=== PATIENT | female | born 1980 | race Caucasian/White ===

== ENCOUNTER → 2018-02-26 07:21 | Outpatient (CLI) | payer BC, SELFPAY ==
[2018-02-26 08:25] LABS: Hematocrit 40.5 % (37-47); Hemoglobin 13.3 g/dl (12.0-15.0); Mean Corp Hgb Conc 32.8 g/gl (32-36); Mean Corpuscular Volume 91.4 fL (81-99); Mean Platelet Vol. 11.1 fl (6.2-12.0); Platelet Count 262 K/mm3 (150-450); RBC Distribution Width CV 12.7 % (11.6-14.6); RBC Distribution Width SD 41.9 fl (35.1-43.9); Red Blood Count 4.43 M/mm3 (4.2-5.4); White Blood Count 3.8 K/mm3 (4.4-11.0)
[2018-02-26 08:30] LABS: Scan Indicated on CBC? Y/N NO
[2018-02-26 08:51] LABS: Erythrocyte Sedimentation Rate 4 mm/hr (0-20)
[2018-02-26 09:15] LABS: ALB/GLOB Ratio 1.2 RATIO (0.9-2.4); AST(SGOT) 12 U/L (15-37); Alanine Aminotransfer ALT/SGPT 24 U/L (13-56); Albumin, Serum 4.1 g/dL (3.2-5.0); Alkaline Phosphatase 62 U/L (45-117); BUN 11 mg/dL (7-18); BUN/Creat Ratio 16.1 RATIO (10-20); Calcium,Total 9.4 mg/dL (8.5-10.1); Creatinine, Serum 0.68 mg/dL (0.55-1.02); EST Glomerular Filtration Rate 102 mL/min (>60); Est Glom Filt Rate - Afr Amer 123 mL/min (>60); Globulin 3.5 g/dL (2.2-4.2); Glucose 83 mg/dL (74-106); Protein, Total 7.6 g/dL (6.4-8.2)
[2018-02-26 09:16] LABS: Anion Gap 8 (5-15); CRP < 2.90 mg/L (0.0-3.0); Chloride 105 mmol/L (98-107); Potassium 4.1 mmol/L (3.5-5.1); Sodium Level 142 mmol/L (136-145)
== END ==
PROVIDERS: Family Provider Family Medicine; PCP Family Medicine; Visit Provider Family Medicine
DX: E03.9 Hypothyroidism, unspecified (principal); R53.83 Other fatigue
CPT/HCPCS: 36415; 80053; 84443; 85027; 85652; 86140

== ENCOUNTER → 2018-03-09 16:57 | Outpatient (CLI) | payer BC, SELFPAY ==
[2018-03-09 17:36] LABS: Free T3 2.7 pg/mL (2.18-3.98); T4 Free Direct 0.57 ng/dL (0.76-1.46)
== END ==
PROVIDERS: Family Provider Family Medicine; PCP Family Medicine; Visit Provider Nurse Practitioner
DX: E03.9 Hypothyroidism, unspecified (principal)
CPT/HCPCS: 84439; 84481

== ENCOUNTER → 2018-05-03 16:11 | Outpatient (CLI) | payer BC, SELFPAY ==
[2018-05-03 17:44] LABS: Free T3 2.5 pg/mL (2.18-3.98)
== END ==
PROVIDERS: Family Provider Family Medicine; PCP Family Medicine; Visit Provider Nurse Practitioner
DX: E03.9 Hypothyroidism, unspecified (principal)
CPT/HCPCS: 36415; 84439; 84443; 84481

== ENCOUNTER → 2018-05-25 07:21 | Outpatient (CLI) | payer BC, SELFPAY ==
[2018-05-25 09:10] LABS: Immature Platelet Fraction 2.3 % (1.0-7.9); RET-HE 26.9 pg (30-35); Reticulocyte Count 0.41 % (0.5-1.5)
[2018-05-25 09:14] LABS: Erythrocyte Sedimentation Rate 4 mm/hr (0-20)
[2018-05-25 10:25] LABS: CRP < 2.90 mg/L (0.0-3.0); Calcium,Total 9.8 mg/dL (8.5-10.1); Follicle Stimulating Hormone 7.5 mIU/mL; Prolactin 10.6 ng/mL; Rheumatoid Factor < 10.0 IU/mL (<15); Uric Acid 2.8 mg/dL (2.6-6.0)
[2018-05-26 08:24] LABS: PTHIN 71.9 pg/mL (18.4-80.1)
[2018-05-26 08:33] LABS: Vitamin B12 802 pg/mL (211-911); Vitamin D,25 Hydroxy 18.2 ng/mL (29.95-100.01)
[2018-05-26 14:48] LABS: ANTINUCLEAR ANTIBODIES DIRECT Negative (Negative)
[2018-05-31 08:11] LABS: 24HR. Urine Creatinine 1.35 g/24 HR (0.70-1.90)
[2018-06-03 17:04] LABS: ASO Titer 52.5 IU/mL (0.0-200.0); Renin, Plasma 1.677 ng/mL/hr (0.167-5.380)
[2018-06-03 20:08] LABS: Cortisol, Urinary Free 11 ug/L (Undefined)
[2018-06-04 11:27] LABS: Cortisol, Free 24Ur 30 ug/24 hr (0-50)
== END ==
PROVIDERS: Visit Provider Nurse Practitioner Family
DX: M25.50 Pain in unspecified joint (principal); R53.81 Other malaise; R53.82 Chronic fatigue, unspecified
CPT/HCPCS: 36415; 82306; 82310; 82530; 82570; 82607; 82746; 83001; 83002; 83735; 83970; 84146; 84244; 84550; 85045; 85652; 86038; 86060; 86140; 86431

== ENCOUNTER → 2018-05-26 12:24 | Outpatient (CLI) | payer BC, SELFPAY ==
--- NOTE | 2018-05-26 12:26 | US_ITS ---
STUDY: THYROID ULTRASOUND REASON FOR EXAM: Female, 37 years old. Hypothyroidism. TECHNIQUE: Ultrasound evaluation of the thyroid was performed with real-time and static ragland-scale imaging. COMPARISON: None. FINDINGS: RIGHT LOBE: The right lobe of the thyroid gland measures 5.5 x 2.4 x 2.4 cm. There is a heterogeneous echotexture. There are no demonstrated solid, cystic or complex lesions. There is prominent vascularity on color Doppler. LEFT LOBE: The left lobe of the thyroid gland measures 5.2 x 2.7 x 2.4 cm. There is a heterogeneous echotexture. There are no demonstrated solid, cystic or complex lesions. There is mildly prominent vascularity on color Doppler. ISTHMUS: The isthmus measures 5 mm. The regional lymph nodes are normal. US/Thyroid IMPRESSION: Borderline to mildly enlarged, diffusely heterogeneous and predominantly vascular thyroid gland, consistent with goiter or mild thyroiditis. Electronically Signed: Ole Singletary MD at 19:37 EDT , Service support ,
== END ==
PROVIDERS: Family Provider Nurse Practitioner Family; PCP Nurse Practitioner Family; Visit Provider Nurse Practitioner Family
DX: E03.9 Hypothyroidism, unspecified (principal)
CPT/HCPCS: 76536

== ENCOUNTER → 2018-05-29 07:06 | Outpatient (CLI) | payer BC, SELFPAY | PROVIDERS: Family Provider Nurse Practitioner Family; PCP Nurse Practitioner Family; Visit Provider Nurse Practitioner Family | DX: M25.50 Pain in unspecified joint (principal); R53.81 Other malaise; R53.83 Other fatigue | CPT/HCPCS: 36415 ==

== ENCOUNTER → 2018-06-08 15:02 | Outpatient (CLI) | payer BC, SELFPAY ==
[2018-06-08 15:28] LABS: Absolute Lymphocyte Count 1.88 X10^3/ul (0.83-4.51); Absolute Neutrophil Count 3.9 X10^3/uL (2.0-7.7); Basophil# 0.03 X10^3/uL; Basophil% 0.5 % (0-1); Eosinophil# 0.16 X10^3/uL; Eosinophils% 2.5 % (0-5); Hematocrit 40.5 % (37-47); Lymphocyte # 1.88 X10^3/ul (4.0); Lymphocyte % 29.4 % (19-41); Mean Corp Hgb Conc 32.1 g/gl (32-36); Mean Corpuscular Volume 90.4 fL (81-99); Mean Platelet Vol. 10.6 fl (6.2-12.0); Monocyte# 0.43 X10^3/uL; Monocyte% 6.7 % (0-10); Neutrophil # 3.89 X10^3/uL (2.7-7.7); Neutrophil % 60.9 % (47-70); Platelet Count 246 K/mm3 (150-450); RBC Distribution Width SD 42.6 fl (35.1-43.9); Red Blood Count 4.48 M/mm3 (4.2-5.4); White Blood Count 6.4 K/mm3 (4.4-11.0)
[2018-06-08 15:37] LABS: POSITIVE COUNT NO; POSITIVE DIFFERENTIAL NO; POSITIVE MORPHOLOGY NO
== END ==
PROVIDERS: Family Provider Nurse Practitioner Family; PCP Nurse Practitioner Family; Visit Provider Nurse Practitioner Family
DX: D75.89 Other specified diseases of blood and blood-forming organs (principal)
CPT/HCPCS: 36415; 85025

== ENCOUNTER 2018-07-15 22:44 | Emergency (ER) | payer BC, SELFPAY ==
[2018-07-15 22:46] VITALS: BP 122/76; PULSE 88; RESP 16; TEMP 36.9; O2SAT 100; BMI 28.4
[2018-07-15 23:02] VITALS: BP 123/84; PULSE 89; RESP 15; O2SAT 100
--- NOTE | 2018-07-15 23:08 | EKG12_ITS ---
Test Reason : CP Blood Pressure : / mmHG Vent. Rate : 080 BPM Atrial Rate : 080 BPM P-R Int : 132 ms QRS Dur : 082 ms QT Int : 356 ms P-R-T Axes : 070 047 050 degrees QTc Int : 410 ms Normal sinus rhythm Normal ECG Confirmed by ARMANDO RUDOLPH MD ([id number]), photo editor THOMAS GONZALEZ ([id number] on 07/19/2018 3:07:57 PM Referred By: JOLENE Confirmed By:ARMANDO RUDOLPH MD
--- NOTE | 2018-07-15 23:10 | RAD_ITS ---
STUDY: X-RAY CHEST REASON FOR EXAM: Female, 37 years old. Chest pain. TECHNIQUE: 1 view COMPARISON: Prior chest radiograph of October 07, 2015 FINDINGS: The lungs are clear and expanded. There is no demonstrated pleural abnormality. Normal size heart. Normal mediastinum and bhumika. Normal visualized pulmonary arteries. Normal visualized aortic arch and descending thoracic aorta. Normal visualized thoracic spine. Normal visualized ribs, clavicles, and shoulders. There is no demonstrated abnormality of the visualized soft tissue structures of the upper abdomen. RAD/Chest 1 View (Portable) IMPRESSION: Normal x-ray examination of the chest. Electronically Signed: Lin Ocasio MD at 23:33 EDT , Service support ,
--- NOTE | 2018-07-15 23:14 | ED.DCSUM_ITS ---
- ER Visit Summary Date of Service: 07/15/18 Chief Complaint: Pain History of Present Illness: The patient is a 37 F with chest pain that started sometime this morning. The pain has been constant to some degree all day today , waxing and waning. It feels like pressure. It is retrosternal does not radiate. Nothing seems to bring on or make it worse. Nothing makes it better. Associated with palpitations. She has palpitations at baseline however. She also has some nausea and lightheadedness. No history of coronary disease, ACS, stress testing, or catheterization. No history of aortic disease. No history of DVT, PE, recent surgery, cancer, or travel. Former smoker. History of MVP and PVCs. Takes aspirin and verapamil. Physical Examination: Afebrile vital signs unremarkable. Patient alert and oriented. No acute distress. Skin normal color without diaphoresis or pallor. Heart regular rate and rhythm. Lungs clear to auscultation in all walker. Extremities nontender with no edema. Good pulses. Test Results: EKG shows sinus rhythm at a rate of 80. No sign of acute ischemia or infarct pattern. No dysrhythmias noted. Laboratory studies and x- ray pending. Emergency Department Course and Treatment: Patient placed on a monitor. Will check EKG, labs, chest x-ray. She is PERC negative. Troponin is pending, but overall she is low risk for ACS. Nothing to suggest dissection. No infectious symptoms. Treated with Toradol and norco for pain. On reevaluation, patient is unchanged. Workup is unremarkable. Patient is no risk or very low risk for any life-threatening etiologies. I believe she is appropriate for outpatient follow-up. Patient will be discharged. Follow-up with her doctor. Treatment Plan: As above Disposition: Discharged Impression: 1. Chest pain unclear etiology This note was generated with cafegiveation software. It may contain incorrect words, spelling, and punctuation that were not noted in review of the chart prior to signing ED Disposition - Plan for ED Patient: Chief Complaint: Chest Pain Referrals: Ang Traore, ANNEMARIE-C [Primary Care Provider] -
[2018-07-15] MEDS: Ketorolac 15 MG/ML Vial IV (23:38)
[2018-07-15 23:41] LABS: Absolute Lymphocyte Count 2.74 X10^3/ul (0.83-4.51); Basophil# 0.05 X10^3/uL; Basophil% 0.8 % (0-1); Eosinophil# 0.12 X10^3/uL; Eosinophils% 1.8 % (0-5); Hematocrit 41.6 % (37-47); Hemoglobin 13.9 g/dl (12.0-15.0); Lymphocyte # 2.74 X10^3/ul (4.0); Lymphocyte % 41.8 % (19-41); Mean Corp Hgb Conc 33.4 g/gl (32-36); Mean Corpuscular Hgb 29.8 pg (27.0-32.0); Mean Corpuscular Volume 89.1 fL (81-99); Mean Platelet Vol. 11.3 fl (6.2-12.0); Monocyte# 0.62 X10^3/uL; Monocyte% 9.5 % (0-10); Neutrophil # 3.02 X10^3/uL (2.7-7.7); Neutrophil % 45.9 % (47-70); Platelet Count 268 K/mm3 (150-450); RBC Distribution Width CV 13.2 % (11.6-14.6); RBC Distribution Width SD 42.9 fl (35.1-43.9); Red Blood Count 4.67 M/mm3 (4.2-5.4); White Blood Count 6.6 K/mm3 (4.4-11.0)
[2018-07-15 23:42] LABS: POSITIVE COUNT NO; POSITIVE DIFFERENTIAL NO; POSITIVE MORPHOLOGY NO
[2018-07-15 23:50] LABS: Anion Gap 8 (5-15); BUN 12 mg/dL (7-18); BUN/Creat Ratio 15.2 RATIO (10-20); Calcium,Total 10.1 mg/dL (8.5-10.1); Chloride 107 mmol/L (98-107); Creatinine, Serum 0.79 mg/dL (0.55-1.02); EST Glomerular Filtration Rate 86 mL/min (>60); Est Glom Filt Rate - Afr Amer 104 mL/min (>60); Estimated Creatinine Clearance 90.39 ml/min; Glucose 93 mg/dL (74-106); Potassium 3.7 mmol/L (3.5-5.1); Sodium Level 143 mmol/L (136-145)
[2018-07-16] VITALS: BP 115/72; PULSE 83; RESP 17; O2SAT 97
--- NOTE | 2018-07-16 00:02 | ED.DEP ---
ED Disposition - Plan for ED Patient: Chief Complaint: Chest Pain Instructions: ED Chest Pain Atypical Unkn Cause Referrals: Ang Traore, ANNEMARIE-C [Primary Care Provider] -
[2018-07-16] MEDS: HYDROcodone Bitartrate/Apap 5/325 Tablet PO (00:21)
[2018-07-16 00:28] VITALS: BP 115/70; PULSE 70; RESP 14; O2SAT 99
== END 2018-07-16 00:28 | disposition home or self-care (01) ==
LOC: ED 23:36
PROVIDERS: Emergency Provider Emergency Medicine; Family Provider Nurse Practitioner Family; PCP Nurse Practitioner Family
DX: R07.9 Chest pain, unspecified (principal); I34.1 Nonrheumatic mitral (valve) prolapse; I49.3 Ventricular premature depolarization; E04.9 Nontoxic goiter, unspecified; Z79.82 Long term (current) use of aspirin; Z79.899 Other long term (current) drug therapy; Z87.891 Personal history of nicotine dependence
CPT/HCPCS: 71045; 80048; 84484; 85025; 93005; 96374; 99285

== ENCOUNTER → 2018-07-19 07:29 | Outpatient (CLI) | payer BC, SELFPAY | PROVIDERS: Family Provider Nurse Practitioner Family; PCP Nurse Practitioner Family; Visit Provider Nurse Practitioner Family | DX: E55.9 Vitamin D deficiency, unspecified (principal) | CPT/HCPCS: 36415; 82306 ==

== ENCOUNTER → 2018-07-21 07:13 | Outpatient (CLI) | payer BC, SELFPAY ==
--- NOTE | 2018-07-21 07:17 | NM_ITS ---
CLINICAL: 38-year-old female with suspected clinical thyroiditis. I-123 THYROID UPTAKE and SCAN COMPARISON: Thyroid ultrasound report 05/26/2018 FINDINGS: The patient was administered a 341 uCi I-123 capsule by mouth. The 4-hour I-123 radioactive iodine thyroidal uptake was calculated to be 41.5 % (normal 5 to 25 %). The 24-hour I-123 radioactive iodine thyroidal uptake was calculated to be 78.4 % (normal 5 to 40 %). The I-123 thyroid scan demonstrates homogeneous radiopharmaceutical concentration throughout the right lobe of a U shaped thyroid gland. A hypofunctioning nodule is demonstrated in the midpole of the left lobe of thyroid colloid. NM/Thyroid Uptake Single or Mult IMPRESSION: 1. ABNORMAL ELEVATED 4- and 24-hour I-123 radioactive iodine thyroidal uptakes. 2. The I-123 thyroid scan in conjunction with the calculated iodine uptake values is most consistent with the presence of a diffuse toxic goiter. 3. The hypofunctioning nodule involving the left lobe of thyroid colloid may be secondary to a TSH dependent adenoma or potentially neoplasm. Following clinical stabilization, histopathologic analysis is recommended. Electronically Signed: Ang Skaggs DO at 22:45 EDT Tel , Service support ,
== END ==
PROVIDERS: Family Provider Nurse Practitioner Family; PCP Nurse Practitioner Family; Visit Provider Nurse Practitioner Family
DX: E06.9 Thyroiditis, unspecified (principal)
CPT/HCPCS: 78012; A9516

== ENCOUNTER → 2018-08-20 09:19 | Outpatient (CLI) | payer BC, SELFPAY ==
--- NOTE | 2018-08-20 09:22 | STE_ITS ---
Reason For Study: Chest Pain Stress Results Protocol: Andrew Protocol Maximum Predicted HR: 181 bpm Target HR: 154 bpm% Max imum Predicted HR: 99 % DurationHeart Rate Stage (mm:ss) (bpm) BPCom ment Baseline 87 98/60 No Chest Pain Andrew Protocol Stage I 3:00 16 0 116/70No Chest Pain; Mild Dyspnea Andrew Protocol Stage II 2:30 17 9 146/70No Chest Pain; Moderate to Severe Dyspnea Recovery 99 110/68 No Chest Pain Stress Duration: 5:30 mm:ss Maximum Stress HR: 179 bpmM ETS: 7 Baseline Echocardiogram Findings Stress Echo Wall motion Data Resting WMIntermediate WMStress WM Resting Wall Motion Wall Motion Stress All segments Normal. All segments Hyperkinetic. Ejection Fraction 55 %. Ejection Fraction 70 %. Stress Results Heart rate response: appropriate Blood pressure response: low resting BP - appropriate response Arrhythmias: none Functional capacity: decreased Stopped secondary to: dyspnea. EKG Data Baseline ECG: NSR. Peak exercise ECG: no obvious ECG changes. Symptoms with Stress No c/o chest discomfort during exercise / recovery. Interpretation Summary Negative (adequate) Stress Echocardiogram Ordering Physician: Shon Garza Referring Physician: Morgan Redd M.D. Performed By: Patrick Cuellar RCS
== END ==
PROVIDERS: Family Provider Nurse Practitioner Family; PCP Nurse Practitioner Family; Visit Provider Nurse Practitioner Family
DX: I34.1 Nonrheumatic mitral (valve) prolapse (principal); R07.9 Chest pain, unspecified; R53.83 Other fatigue; R06.09 Other forms of dyspnea
CPT/HCPCS: 93017; 93350

== ENCOUNTER → 2018-09-06 16:12 | Outpatient (CLI) | payer BC, SELFPAY ==
[2018-09-06 17:23] LABS: Hematocrit 39.3 % (37-47); Hemoglobin 12.8 g/dl (12.0-15.0); Mean Corp Hgb Conc 32.6 g/gl (32-36); Mean Corpuscular Hgb 29.6 pg (27.0-32.0); Mean Corpuscular Volume 90.8 fL (81-99); Mean Platelet Vol. 11.3 fl (6.2-12.0); Platelet Count 261 K/mm3 (150-450); RBC Distribution Width CV 12.8 % (11.6-14.6); RBC Distribution Width SD 41.9 fl (35.1-43.9); Red Blood Count 4.33 M/mm3 (4.2-5.4); White Blood Count 8.1 K/mm3 (4.4-11.0)
[2018-09-06 17:25] LABS: Scan Indicated on CBC? Y/N NO
[2018-09-06 17:33] LABS: ALB/GLOB Ratio 1.2 RATIO (0.9-2.4); AST(SGOT) 4 U/L (15-37); Alanine Aminotransfer ALT/SGPT 21 U/L (13-56); Albumin, Serum 4.4 g/dL (3.2-5.0); Alkaline Phosphatase 61 U/L (45-117); Anion Gap 8 (5-15); BUN 15 mg/dL (7-18); BUN/Creat Ratio 18.6 RATIO (10-20); Chloride 105 mmol/L (98-107); Creatinine, Serum 0.81 mg/dL (0.55-1.02); EST Glomerular Filtration Rate 84 mL/min (>60); Est Glom Filt Rate - Afr Amer 102 mL/min (>60); Globulin 3.6 g/dL (2.2-4.2); Glucose 85 mg/dL (74-106); Lipase 186 U/L (73-393); Potassium 3.5 mmol/L (3.5-5.1); Sodium Level 140 mmol/L (136-145)
== END ==
PROVIDERS: Family Provider Nurse Practitioner Family; PCP Nurse Practitioner Family; Referring Provider Nurse Practitioner Family; Visit Provider Nurse Practitioner Family
DX: R10.13 Epigastric pain (principal)
CPT/HCPCS: 36415; 80053; 83690; 85027

== ENCOUNTER → 2018-09-09 15:59 | Outpatient (CLI) | payer BC, SELFPAY ==
[2018-09-09 16:48] LABS: Vitamin D,25 Hydroxy 39.6 ng/mL (29.95-100.01)
[2018-09-09 16:49] LABS: T4 Free Direct 1.03 ng/dL (0.76-1.46); Thyroid Stim Hormone (TSH) 6.55 uIU/mL (0.358-3.74)
== END ==
PROVIDERS: Visit Provider Nurse Practitioner Family
DX: E03.9 Hypothyroidism, unspecified (principal); E55.9 Vitamin D deficiency, unspecified
CPT/HCPCS: 36415; 82306; 84439; 84443

== ENCOUNTER → 2018-10-15 08:07 | Outpatient (CLI) | payer BC, SELFPAY ==
[2018-10-16 11:12] VITALS: BMI 28.4
--- OUTSIDE RECORDS SUMMARY | 2019-01-19 11:34 | XMS RPT_ITS ---
:1980 Author Organization OHIP Support Name Relationship Address Phone WC Unavailable [address] + [place] [address] [facility] Unavailable [address] + [place] [address] LONNIE RUVALCABA Unavailable [address] + [place] [address] [facility] Unavailable [address] + [place] [address] [facility] Unavailable [address] + [place] [address] [facility] Unavailable [address] + [place] [address] [facility] Unavailable [address] + [place] [address] [facility] Unavailable [address] + [place] [address] [facility] Unavailable [address] + [place] [address] LONNIE RUVALCABA Unavailable [address] + [place] [address] [facility] Unavailable [address] + [place] [address] LONNIE RUVALCABA Unavailable [address] + [place] [address] [facility] Unavailable [address] + [place] [address] LONNIE RUVALCABA Unavailable [address] + [place] [address] [facility] Unavailable [address] + [place] [address] JORDON, LONNIE Unavailable [address] + [place] [address] [facility] Unavailable [address] + [place] [address] JORDON LONNIE Unavailable [address] + [place] [address] [facility] Unavailable [address] + [place] [address] JORDON LONNIE Unavailable [address] + [place] [address] [facility] Unavailable [address] + [place] [address] JORDON LONNIE Unavailable [address] + [place] [address] [facility] Unavailable [address] + [place] [address] JORDONJASONON Unavailable [address] + [place] [address] [facility] Unavailable [address] + [place] [address] JORDONJASONON Unavailable [address] + [place] [address] [facility] Unavailable [address] + [place] [address] JORDONJASONON Unavailable [address] + [place] [address] [facility] Unavailable [address] + [place] [address] JORDON LONNIE Unavailable [address] + [place] [address] [facility] Unavailable [address] + [place] [address] JORDON, LONNIE Unavailable [address] + [place] [address] [facility] Unavailable [address] + [place] [address] JORDON LONNIE Unavailable [address] + [place] [address] [facility] Unavailable [address] + [place] [address] LONNIE RUVALCABA Unavailable [address] + [place] [address] [facility] Unavailable [address] + [place] [address] LNONIE RUVALCABA Unavailable [address] + [place] [address] [facility] Unavailable [address] + [place] [address] LONNIE RUVALCABA Unavailable [address] + [place] [address] [facility] Unavailable [address] + [place] [address] LONNIE RUVALCABA Unavailable [address] + [place] [address] [facility] Unavailable [address] + [place] [address] LONNIE RUVALCABA Unavailable [address] + [place] [address] [facility] Unavailable [address] + [place] [address] LONNIE RUVALCABA Unavailable [address] + [place] [address] [facility] Unavailable [address] + [place] [address] Care Team Providers Name Role Phone NIC HADDAD, MS. RUTLEDGE Attending Unavailable NENITA CALVERT MD Primary Care Unavailable NIC HADDAD, MS. RUTLEDGE Attending Unavailable NIC HADDAD, MS. RUTLEDGE Primary Care Unavailable Steven Oliver Attending Unavailable Amirah Davies Attending Unavailable Nenita Calvert Attending Unavailable Nenita Calvert Referring Unavailable Nenita Calvert Primary Care Unavailable Lacie Lam Attending Unavailable Lacie Lam Referring Unavailable Nenita Calvert Primary Care Unavailable Lacie Lam Attending Unavailable Nenita Calvert Referring Unavailable Nenita Calvert Primary Care Unavailable Steven Oliver Attending Unavailable Steven Oliver Referring Unavailable Morgan Redd Attending Unavailable Nenita Calvert Referring Unavailable Lacie Lam MUD ANALYSIS OPERATOR-C Attending Unavailable Amanda, Nenita Referring Unavailable Amanda, Nenita Primary Care Unavailable Lacie Lam MUD ANALYSIS OPERATOR-C Attending Unavailable Shook, Lacie Chaudhari MUD ANALYSIS OPERATOR-C Referring Unavailable Amanda, Nenita Primary Care Unavailable Shook, Lacie Chaudhari MUD ANALYSIS OPERATOR-C Attending Unavailable Amanda, Nenita Referring Unavailable Amanda, Nenita Primary Care Unavailable [place] MUD ANALYSIS OPERATOR-C Attending Unavailable EugenieAng benítez MUD ANALYSIS OPERATOR-C Referring Unavailable Primay Care Physicia, No Primary Care Unavailable [place] ben[place]tez MUD ANALYSIS OPERATOR-C Attending Unavailable [place] ben[place]tez MUD ANALYSIS OPERATOR-C Referring Unavailable EugenieAng MUD ANALYSIS OPERATOR-C Primary Care Unavailable EugenieAng benítez MUD ANALYSIS OPERATOR-C Attending Unavailable [place] ben[place]tez MUD ANALYSIS OPERATOR-C Referring Unavailable EugenieAng benítez MUD ANALYSIS OPERATOR-C Primary Care Unavailable Lyric Mcintosh Attending Unavailable EugenieAng benítez MUD ANALYSIS OPERATOR-C Referring Unavailable EugenieAng benítez MUD ANALYSIS OPERATOR-C Attending Unavailable EugenieAng benítez MUD ANALYSIS OPERATOR-C Referring Unavailable [place] ben[place]tez MUD ANALYSIS OPERATOR-C Primary Care Unavailable Galina, Aye Attending Unavailable EugenieAng benítez MUD ANALYSIS OPERATOR-C Referring Unavailable [place] ben[place]tez MUD ANALYSIS OPERATOR-C Primary Care Unavailable Iscjoyce, Casperour Attending Unavailable EugenieAng benítez MUD ANALYSIS OPERATOR-C Referring Unavailable [place] ben[place]tez MUD ANALYSIS OPERATOR-C Primary Care Unavailable Isckarus, Casperour Consulting Unavailable EugenieAng benítez MUD ANALYSIS OPERATOR-C Primary Care Unavailable Woo Gee Attending Unavailable Roof, Shon H Attending Unavailable [place] guerrier MUD ANALYSIS OPERATOR-C Referring Unavailable EugenieAng benítez MUD ANALYSIS OPERATOR-C Attending Unavailable EugenieAng benítez MUD ANALYSIS OPERATOR-C Referring Unavailable EugenieAng benítez MUD ANALYSIS OPERATOR-C Primary Care Unavailable EugenieAng benítez MUD ANALYSIS OPERATOR-C Attending Unavailable [place] ben[place]tez MUD ANALYSIS OPERATOR-C Referring Unavailable [place] benítez MUD ANALYSIS OPERATOR-C Primary Care Unavailable EugenieAng benítez MUD ANALYSIS OPERATOR-C Attending Unavailable [place] benítez MUD ANALYSIS OPERATOR-C Referring Unavailable EugenieAng benítez MUD ANALYSIS OPERATOR-C Primary Care Unavailable Woo Klein Attending Unavailable [place] ben[place]z MUD ANALYSIS OPERATOR-C Referring Unavailable Roof, Shon H Attending Unavailable EugenieAng benítez MUD ANALYSIS OPERATOR-C Primary Care Unavailable Morgan Redd Attending Unavailable [place] benítez MUD ANALYSIS OPERATOR-C Primary Care Unavailable Shon Garza Consulting Unavailable Savannah Reeves Attending Unavailable Savannah Reeves Referring Unavailable Ang Traore MUD ANALYSIS OPERATOR-Filiberto Primary Care Unavailable Ang Traore MUD ANALYSIS OPERATORJered Attending Unavailable PROBLEMS PROBLEMS DATE TYPE CONDITION / CODE ATTENDING STATUS SOURCE 10/16/2018 Unknown J01.40 - Acute [place], Active [place] pansinusitis, Amirah Rothman Community unspecified / Hospital J01.40(ICD-10) Repository 10/18/2018 Unknown J02.9 - Acute Benito, Steven Active [place] pharyngitis, Community unspecified / Hospital J02.9(ICD-10) Repository 09/09/2018 Unknown E03.9 - [place], Active [place] Hypothyroidism, Ang Armstrong MUD ANALYSIS OPERATOR-C Community unspecified / Hospital E03.9(ICD-10) Repository 09/09/2018 Unknown E55.9 - Vitamin D [place], Active [place] deficiency, Ang Armstrong MUD ANALYSIS OPERATOR-C Community unspecified / Hospital E55.9(ICD-10) Repository 09/06/2018 Admitting Urinary tract NIC HADDAD, MS. Active [facility] Diagnosis infection, site [facility] not specified / Repository N39.0(ICD-10) 08/20/2018 Unknown R53.83 - Other [place], Morgan Active [place] fatigue / Community R53.83(ICD-10) Hospital Repository 08/20/2018 Unknown R07.9 - Chest [place], Morgan Active [place] pain, unspecified Community / R07.9(ICD-10) Hospital Repository 08/20/2018 Unknown I34.1 - [place], Morgan Active [place] Nonrheumatic Community mitral (valve) Hospital prolapse / Repository I34.1(ICD-10) 08/20/2018 Unknown R06.09 - Other [place], Morgan Active [place] forms of dyspnea / Community R06.09(ICD-10) Hospital Repository 06/08/2018 Unknown R70.1 - Abnormal [place], Active [place] plasma viscosity / Ang Armstrong MUD ANALYSIS OPERATOR-C Community R70.1(ICD-10) Hospital Repository 06/17/2018 Unknown M25.50 - Pain in [place], Active [place] unspecified joint Ang Armstrong MUD ANALYSIS OPERATOR-C Community / M25.50(ICD-10) Hospital Repository PROCEDURES PROCEDURES No Procedure Records FoundRESULTS RESULTS URGENT CARE VISIT Observed: 10/16/2018 Status: F Source: [place] RE[place] 11:39 AM [facility] [place] [facility] [address] [place] [address] [address] [place] [address] OFFICE VISIT Date of Service: 10/16/18 MR#: [id number] Acct: [id number] Name: SHAHLA RUVALCABA Rep #: [id number] : 1980 Provider: Amirah Davies Age/Sex: 38/F Location: [facility] Status: Signed Intake Vital Signs10/16/18 Height 5 ft 6 in 10/16/18 Weight: 176 lb 10/16/18 Body Mass Index (BMI) 28.4 10/16/18 Blood Pressure 108/70 10/16/18 Respiratory Rate 14 Intake Visit Reasons: SINUS INFECTION Chief Complaint: CONGESTION Meat Puller Required: No Accompanied by: SELF Is patient in pain?: No Allergies Penicillins Adverse Reaction (Severe, Verified 10/16/18 11:12) Vomiting Medications aspirin 81 mg chewable tablet 81 mg PO QDAY 03/11/18 [History Confirmed 10/16/18] levothyroxine 100 mcg tablet 100 mcg PO QDAY #30 tab 03/11/18 [Rx Confirmed 10/16/18] Ergocalciferol (Vitamin D2) [Drisdol] 50,000 unit PO QWEEK 06/17/18 [History Confirmed 10/16/18] amlodipine 2.5 mg tablet 2.5 mg PO DAILY #90 tab 08/23/18 [Rx Confirmed 10/16/18] azithromycin 250 mg tablet See Rx Instructions PO .COMPLEX #6 tab 10/16/18 [Rx Confirmed 10/16/18] fluticasone 50 mcg/actuation nasal spray,suspension 2 spray INTRANASAL DAILY #9.9 g 10/16/18 [Rx Confirmed 10/16/18] [facility] Medical History Hypothyroidism (acquired) (Chronic) Abnormal CBC (Acute) Fatigue (Chronic) Hypothyroidism (Chronic) Premature ventricular contractions (Chronic) Mitral valve prolapse (Chronic) Atrial fibrillation (Chronic) Chronic fatigue and malaise (Chronic) Chronic headaches (Chronic) Eczema (Chronic) Goiter (Chronic) Family History Mother Hypertension CAD (coronary artery disease) Social History Smoking Status: Never smoker alcohol intake: current alcohol intake frequency: holidays/special occasions only substance use type: does not use caffeine: Yes Type: coffee Number of servings: 2 HPI HPI Chief Complaint: CONGESTION Details: SHAHLA RUVALCABA, is a 38 F who presents to the office today for an urgent appt. Pt sts that symptoms started 5 days ago. She was in here yesterday for a strep test, this was negative. Symptoms have gotten progressively worse. She was not able to sleep last night. She has sinus congestion, cough, headache, fatigue, sore throat. She has used OTC medications with minimal relief. ROS Const Constitutional: Positive for body ache, fatigue, fever(s) and headache(s) Eyes Eyes: Positive for light sensitivity; no discharge or change in vision ENT ENT: Positive for headache(s), nasal congestion, nasal discharge, sinus pressure, post nasal drip and sore throat Resp Respiratory: Positive for cough Cardio Cardiology: No chest pain at rest, chest pain with exertion or shortness of breath Gastro GI: No diarrhea, nausea/dyspepsia or Vomiting blood/hematemesis Neuro Neurology: Positive for headache(s) Endo Endocrine: Positive for fatigue Exam Const General: cooperative, healthy appearing [facility] Head: normal to inspection Ears: hearing grossly normal bilaterally, EAC's normal, TM abnormal retracted Nose: external nose normal, nasal discharge Mouth: oral mucosae normal Throat: abnormal tonsil, posterior oropharynx abnormal erythema Resp Effort AND Inspection: normal respiratory effort Auscultation: Bilateral: Clear to Auscultation Cardio Palpation: normal PMI Rate: regular rate Rhythm: regular rhythm Neuro General: CN's II-XI intact bilaterally, alert Psych Appearance: grossly normal Mental Status: mental status grossly normal Assessment AND Plan Problems 1. Acute non-recurrent pansinusitis J01.40 Plan Advised patient to complete course of antibiotics given. Advised patient on the importance of hydration. Recommended the use of xdhl-lpz-skjdkis support from Advil, Tylenol and jwzz-uao-rsqyhjv cold medications to help alleviate symptoms. Did review maximum dosing on each of these medications to avoid accidental overdose of medications. Medications New: azithromycin (Zithromax Z-Favian) take 500 mg today (day 1), then 250 mg for 4 days (days 2-5 ) PO 6 tabs 0RF Coding Level of Care Code Off vis,est,level 4 Diagnoses Acute non-recurrent pansinusitis J01.40 Sinusitis location: pansinusitis Chronicity: acute Recurrence: non-recurrent 10/16/18 1139 <Electronically signed by Amirah BEARDEN> Date Amirah BEARDEN Cosigner Signature: Date (if applicable) CC: URGENT CARE VISIT Observed: 10/15/2018 Status: F Source: [place] REPORT 5:07 PM [facility] [place] [facility] [address] [place] [address] [address] [place] [address] OFFICE VISIT Date of Service: 10/15/18 MR#: [id number] Acct: [id number] Name: JORDONSHAHLA Claudia Rep #: [id number] : 1980 Provider: Steven BEARDEN Age/Sex: 38/F Location: [facility] Status: Signed Intake Vital Signs10/15/18 Height 5 ft 6 in 10/15/18 Blood Pressure 110/74 10/15/18 Blood Pressure Location Lt brachial 10/15/18 Blood Pressure Position Sitting Intake Visit Reasons: strep Chief Complaint: Sore throat Meat Puller Required: No Accompanied by: Self Is patient in pain?: No Allergies Penicillins Adverse Reaction (Severe, Verified 10/15/18 16:35) Vomiting Medications aspirin 81 mg chewable tablet 81 mg PO QDAY 03/11/18 [History Confirmed 07/16/18] levothyroxine 100 mcg tablet 100 mcg PO QDAY #30 tab 03/11/18 [Rx Confirmed 07/16/18] Ergocalciferol (Vitamin D2) [Drisdol] 50,000 unit PO QWEEK 06/17/18 [History Confirmed 07/16/18] amlodipine 2.5 mg tablet 2.5 mg PO DAILY #90 tab 08/23/18 [Rx] [facility] Medical History Hypothyroidism (acquired) (Chronic) Abnormal CBC (Acute) Fatigue (Chronic) Hypothyroidism (Chronic) Premature ventricular contractions (Chronic) Mitral valve prolapse (Chronic) Atrial fibrillation (Chronic) Chronic fatigue and malaise (Chronic) Chronic headaches (Chronic) Eczema (Chronic) Goiter (Chronic) Family History Mother Hypertension CAD (coronary artery disease) Social History Smoking Status: Never smoker alcohol intake: current alcohol intake frequency: holidays/special occasions only substance use type: does not use caffeine: Yes Type: coffee Number of servings: 2 HPI HPI Chief Complaint: Sore throat Details: SHAHLA RUVALCABA, is a 38 F who presents to the office today for concern for possible strep. 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 She reports having cold type symptoms starting 4 days ago which have since improved however she continues to have a sore throat. She states that the sore throat has remained consistent despite the use of multiple vous-zvi-zmkdngi medications. She has had no fever, chills, sweats. No nausea, vomiting, diarrhea. No other associated symptoms or alleviating/aggravating factors. ROS Const Constitutional: No fever(s), headache(s), anorexia, chills or abnormal sleep pattern ENT ENT: Positive for post nasal drip, sore throat, nasal congestion and nasal discharge; no headache(s) or ear pain Resp Respiratory: No shortness of breath Cardio Cardiology: No irregular heart rhythm or palpitations Gastro GI: No nausea/dyspepsia Neuro Neurology: No headache(s) or behavioral changes Psych Psychiatric: No abnormal sleep pattern, No behavioral changes Exam Const General: cooperative, healthy appearing [facility] Head: normal to inspection Ears: hearing grossly normal bilaterally, TM's normal bilaterally, EAC's normal Nose: external nose normal, nasal discharge clear Mouth: oral mucosae normal Throat: abnormal tonsil bilaterally Resp Effort AND Inspection: normal respiratory effort Auscultation: Bilateral: Clear to Auscultation Cardio Palpation: normal PMI Rate: regular rate Rhythm: regular rhythm Neuro General: CN's II-XI intact bilaterally, alert Psych Appearance: grossly normal Mental Status: mental status grossly normal Assessment AND Plan Problems 1. Acute pharyngitis, unspecified etiology J02.9 Status Acute Plan Negative strep in the office today. Patient advised we will send the swab off for culture and notify her of any positive results. Patient advised of symptomatic management techniques as well as to increase fluids and rest. To follow-up with her PCP in 5-7 days if no better sooner if worse. Advised of potential red flags and when appropriate to report to the ED. Patient verbalized understanding of all the above. Orders Orders: Coding Level of Care Code Off vis,new,level 3 Diagnoses Acute pharyngitis, unspecified etiology J02.9 Pharyngitis/tonsillitis etiology: unspecified etiology 10/15/18 170 <Electronically signed by Steven BEARDEN> Date Steven BEARDEN Cosigner Signature: Date (if applicable) CC: Observed: 10/15/2018 Status: F Source: [place] CULTURE, R/O STREP A 1:00 PM [facility] [place] [facility] ANGELIQUE Culture No Group A Beta Streptococcus isolated. * This cultures intended use is to screen for Beta Streptococcus A only. All other pathogens and potential pathogens will not be screened for or reported. If a complete workup of all potential pathogens is indicated an order for a routine throat culture is required. Performed By: #### M100.010 #### [facility] [address] [place] [address]. [place], [place], [address] SURGERY VISIT REPORT Observed: 09/10/2018 Status: F Source: [place] 8:05 AM [facility] [address] [place], [place] [address]ai[place]. [address] [place] [address] OFFICE VISIT Date of Service: 08/12/18 MR#: [id number] Acct: [id number] Name: SHAHLA RUVALCABA Rep #: [id number] : 1980 Provider: Woo Klein MD Age/Sex: 38/F Location: [facility] Status: Signed Intake Vital Signs08/12/18 Height 5 ft 6 in 08/12/18 Blood Pressure 113/78 08/12/18 Blood Pressure Location Lt brachial 08/12/18 Blood Pressure Position Sitting Intake Visit Reasons: thyroid mass Chief Complaint: Normal CBC Meat Puller Required: No Accompanied by: None Is patient in pain?: No Allergies Penicillins Adverse Reaction (Severe, Verified 07/16/18 14:35) Vomiting Medications aspirin 81 mg chewable tablet 81 mg PO QDAY 03/11/18 [History Confirmed 07/16/18] levothyroxine 100 mcg tablet 100 mcg PO QDAY #30 tab 03/11/18 [Rx Confirmed 07/16/18] Ergocalciferol (Vitamin D2) [Drisdol] 50,000 unit PO QWEEK 06/17/18 [History Confirmed 07/16/18] amlodipine 2.5 mg tablet 2.5 mg PO DAILY #90 tab 08/23/18 [Rx] [facility] Medical History Hypothyroidism (acquired) (Chronic) Abnormal CBC (Acute) Fatigue (Chronic) Hypothyroidism (Chronic) Premature ventricular contractions (Chronic) Mitral valve prolapse (Chronic) Atrial fibrillation (Chronic) Chronic fatigue and malaise (Chronic) Chronic headaches (Chronic) Eczema (Chronic) Goiter (Chronic) Family History Mother Hypertension CAD (coronary artery disease) Social History Smoking Status: Never smoker alcohol intake: current alcohol intake frequency: holidays/special occasions only substance use type: does not use caffeine: Yes Type: coffee Number of servings: 2 HPI HPI HPI: SHAHLA RUVALCABA, is a 38 F who presents to the office today for evaluation of an abnormal thyroid uptake scan. Patient has had a thyroid uptake scan [place] [facility] [place] the impression showed an abnormally elevated 4 and 24-hour radioactive iodine and thyroidal uptake. They thought that this was most consistent with the presence of diffuse toxic goiter. They also stated that there was a hypofunctioning nodule involved in the left lobe of the thyroid which may be secondary to a TSH dependent adenoma potential neoplasia. Compounding this picture is the fact that she had a thyroid ultrasound done at [facility] on 05/26/2018. This showed only borderline enlargement diffuse heterogenicity and predominantly vascular thyroid gland consistent with goiter or mild thyroiditis. There was no mention of any nodules within the left lobe of the thyroid gland. Her history is 1 of hypothyroidism she had been treated with Levoxyl at one-point she herself subsequently took herself off her medications had an elevation in her TSH to 25 requiring an emergent consultation with [facility] lam. She was subsequently reestablished on her thyroid medications in April of this year. She has had repeat labs in May of this year which showed her TSH to be 1.3 her free T3 at 2.5 and her T4 free direct at 1 all of these are within the normal range. She herself is not complaining of any neck pain. She has been complaining of fatigue and general malaise. She has had no exposure to radiation. ROS General General: Yes fatigue; no weight change, appetite, colon cancer, breast cancer or weakness HEENT HEENT: Yes swollen glands; no difficulty swallowing, eye injury, eye surgery or hoarseness Endo Endocrine: Yes thyroid disease; no diabetes mellitus, thyroid cancer, Hair loss, heat intolerance or cold intolerance Skin Skin: No rash or changing moles Musc Musculoskeletal: No back problems, arthritis, rheumatoid arthritis, gout or joint pain Cardio Cardiovascular: Yes heart disease and atrial fibrillation; no murmur, pacemaker, high blood pressure, heart attack, heart stent, palpitations, shortness of breat with exertion or chest pain Psych Psychiatric: No depression, anxiety or hearing voices Resp Respiratory: Yes shortness of breath, No sleep apnea, No cough, No COPD, No asthma, No emphysema, No wheezing Gastro Gastrointestinal: Yes abdominal pain, Yes nausea or vomiting, No diarrhea, No constipation, No blood in stool, No acid reflux, No hemorrhoids, No ulcers, No gallbladder problem, No black,tarry stools Brien Hematologic: Yes blood thinners, No blood disorders, No bleeding, No anemia, No blood clots Neuro Neurologic: No system reviewed and no additional complaints, except as docu, No as per HPI, No abnormal walking, No abnormal hearing, No abnormal movements, No abnormal speech, No behavioral changes, No burning sensations, No confusion, No seizure-like activity, No unsteadiness, No dizziness, No localized weakness, No frequent falls, No headache(s), No lack of coordination, No loss of vision, No memory loss, Yes numbness, No other visual disturbances, No radiating pain, No restless legs, No sensory deficit, No fainting, Yes tingling, No tremor(s), No weakness, No other Exam Const General: well developed, no acute distress, well hydrated Orientation: oriented to person, oriented to place, oriented to time [facility] Head: normocephalic, atraumatic Ears: external ears normal Mouth: moist mucous membranes Other: Thyroid Exam: No hard palpable nodules are identified within the thyroid gland. Is no tenderness to palpation of the thyroid gland. No real thyroid megaly is in the appreciation Eyes Sclera: sclerae normal Pupils: normal by confrontation Neck Neck: no lymphadenopathy noted Neck mass: No Thyroid: symmetrical, thyroid normal Cardio Heart Sounds: no murmurs Assessment AND Plan Problems 1. Hypothyroidism (acquired) E03.9 2. Abnormal thyroid scan R94.6 Plan At this point I really do not think that there is a clear surgical indication for anything to be done. It is somewhat confusing to me that she would have a normal thyroid ultrasound and yet a radioactive uptake scan suggestive of a diffuse toxic goiter with a potential nodule in the left lobe. I have looked at the ultrasound myself of the thyroid gland and I cannot appreciate any true nodules that need to be biopsied at this time I believe that she would benefit from seeing endocrinology. She is extremely reluctant and looked quite upset that I was going to suggest this to her. At the very least she probably would require at least a repeat thyroid ultrasound to make sure that there are no new nodules that have developed. I will defer this to her primary care physician. Medications Discontinued: Coding Level of Care Code Off vis,new,level 3 Diagnoses Hypothyroidism (acquired) E03.9 Abnormal thyroid scan R94.6 09/10/18 0805 <Electronically signed by Woo Klein MD> Date Woo Klein MD Cosigner Signature: Date (if applicable) CC: Lacie Lam MUD ANALYSIS OPERATOR; MUD ANALYSIS OPERATORKaushikC Ang Traore VITAMIN D,25 HYDROXY Collected: 09/09/2018 Status: F Source: [place] 4:00 PM [facility] [place] CODE TESTS RESULT OUT OF RANGE REFERENCE UNITS LAB L506.1000 29.95-100.01 ng/mL Normal Vitamin D 39.6 25-OH Result Comment: Vitamin D 25(OH) Status Range Deficiency <20 ng/mL (50nmol/L) Insuffciency 20 - 30 ng/mL (50 - 75 nmol/L) Sufficiency 30 - 100 ng/mL (75 - 250 nmol/L) Toxicity >100 ng/mL (>250 nmol/L) Performed By: #### L506.1000 #### [facility] [address] [place], [address] THYROID STIM HORMONE Collected: 09/09/2018 Status: F Source: [place] (TSH) 4:00 PM [facility] [place] CODE TESTS RESULT OUT OF RANGE REFERENCE UNITS LAB L501.9520 0.358-3.74 uIU/mL High TSH 6.55 Performed By: #### L501.9520, L506.0400 #### [facility] [address] [place], [address] T4 FREE DIRECT Collected: 09/09/2018 Status: F Source: [place] 4:00 PM [facility] [place] TYPE CODE TESTS RESULT OUT OF RANGE REFERENCE UNITS LAB L506.0400 0.76-1.46 ng/dL Normal T4 FREE 1.03 DIRECT Performed By: #### L501.9520, L506.0400 #### [facility] [address] [place], [address] CBC-COMPLETE BLOOD CNT Collected: 09/06/2018 Status: F Source: [place] NO DIFF 4:44 PM [facility] [place] TYPE CODE TESTS RESULT OUT OF RANGE REFERENCE UNITS LAB L100.1000 4.4-11.0 K/mm3 Normal WBC 8.1 LAB L100.1200 4.2-5.4 M/mm3 Normal RBC 4.33 LAB L100.1300 12.0-15.0 g/dl Normal HGB 12.8 LAB L100.1400 37-47 % Normal HCT 39.3 LAB L100.1500 81-99 fL Normal MCV 90.8 LAB L100.1600 27.0-32.0 pg Normal MCH 29.6 LAB L100.1700 32-36 g/gl Normal MCHC 32.6 LAB L100.1810 11.6-14.6 % Normal RDW CV 12.8 LAB L100.1820 35.1-43.9 fl Normal RDW SD 41.9 LAB L100.1900 150-450 K/mm3 Normal PLT 261 LAB L100.2000 6.2-12.0 fl Normal MPV 11.3 Performed By: #### L100.0500 #### [facility] [address] [place], [address] COMPREHENSIVE METABOLIC Collected: 09/06/2018 Status: F Source: [facility] 4:44 PM [facility] [place] TYPE CODE TESTS RESULT OUT OF RANGE REFERENCE UNITS LAB L501.0100 74-106 mg/dL Normal GLU 85 Result Comment: Please note revised GLUCOSE reference range effective 2017. LAB L501.1000 7-18 mg/dL Normal BUN 15 LAB L501.1100 0.55-1.02 mg/dL Normal CREAT,SERUM 0.81 Result Comment: The validity of the calculated GFR AND GFRAA in patients over 70 years has not been determined. Clinical correlation is essential. LAB L501.1110 >60 mL/min Normal EST GFR 84 Result Comment: Non- GFR Calc LAB L501.1115 >60 mL/min Normal EST GFR - AA 102 Result Comment: GFR Calc LAB L501.1300 10-20 RATIO Normal BUN/CRE 18.6 LAB L501.1500 6.4-8.2 g/dL T Normal PROT 8.0 LAB L501.1800 3.2-5.0 g/dL Normal ALB 4.4 LAB L501.1950 2.2-4.2 g/dL Normal GLOB 3.6 LAB L501.2000 0.9-2.4 RATIO Normal A/G 1.2 LAB L501.2200 8.5-10.1 mg/dL CA Normal 10.0 LAB L501.4100 15-37 U/L Low AST 4 LAB L501.4305 45-117 U/L Normal ALK P 61 LAB L501.4405 13-56 U/L Normal ALT 21 LAB L501.4600 0.20-1.00 mg/dL T Normal BILI 0.40 LAB L501.5300 136-145 mmol/L NA Normal 140 LAB L501.5600 3.5-5.1 mmol/L K Normal 3.5 LAB L501.5900 98-107 mmol/L CL Normal 105 LAB L501.6100 21.0-32.0 mmol/L Normal CO2 27.0 LAB L501.6200 5-15 Normal GAP 8 Performed By: #### L500.4050, L501.2450 #### [facility] [address] [place], [address] LIPASE Collected: 09/06/2018 Status: F Source: [place] 4:44 PM [facility] [place] TYPE CODE TESTS RESULT OUT OF RANGE REFERENCE UNITS LAB L501.2450 73-393 U/L Normal LIPASE 186 Performed By: #### L500.4050, L501.2450 #### [facility] [address] [place], [address] Observed: 09/06/2018 Status: F Source: [facility] 2:11 PM [facility] REPOSITORY . MICRO - Microbiology PROCEDURE: Urine Culture [*1] SOURCE: Urine BODY SITE: COLLECTED DATE/TIME: 09/06/2018 14:11 EST RECEIVED DATE/TIME: 09/07/2018 15:57 EST START DATE/TIME: 09/07/2018 15:58 EST FREE TEXT SOURCE: FINAL REPORTS Final Report [] Verified Date/Time/Personnel: 09/09/2018 07:19 EST 25,000 organisms per mL Mixed without predominant isolate(s). Sensitivity Testing not indicated. Probably contamination. Repeat culture suggested. PRELIMINARY REPORTS Preliminary Report [] Verified Date/Time/Personnel: 09/08/2018 12:04 EST Culture results pending. Performing Locations *1: This test was performed at: [facility], [address] [place] [address], [id number] , [facility] Performed By: #### CUR #### [address] [address] US ABDOMEN COMPLETE Observed: 09/06/2018 Status: F Source: [facility] 9:09 AM FOUNDATION REPOSITORY ORIGINAL Complete ultrasound of the abdomen HISTORY: Abdominal pain COMPARISON: 06/11/2017 Visible portions of the pancreas, aorta and IVC appear normal. No focal liver lesion is evident. No biliary dilatation. The common duct is normal, 4 mm in diameter. The gallbladder is well-distended. There is a 5 mm echogenic nonshadowing focus at the gallbladder w all. This may represent minimal sludge versus a small polyp. This is unchanged since the previous exam. RIGHT kidney 10.1 cm length and LEFT kidney 10.8 cm length. No renal stone, mass or collecting system dilatation is present. No perinephric fluid seen. The spleen is normal, 11 cm length. No focal spleen lesions seen. No free fluid is evident. No other contributory finding. IMPRESSION: 1. No acute process. 2. Small gallbladder polyp. Interpreted By: Tian Mae MD Preliminary Report By: Tian Mae MD Electronically Signed By: Tian Mae MD Dictated Date: 09/06/2018 10:22:33 AM Prelim Date: 09/06/2018 10:22:33 AM Sign Date: 09/06/2018 10:24:40 AM STRESS TEST ECHO W/O Observed: 08/20/2018 Status: F Source: [place] CONTRAST 4:24 PM [facility] [place] [facility] [address] [place] [address] Stress Test Echo w/o Contrast MR#: [id number] Acct: [id number] Name: SHAHLA RUVALCABA Rep #: [id number] : 1980 38 From: Morgan Redd MD Primary Care: YARIEL SotomayorC Status: REG CLI Ordering Dr: Shon Garza MUD ANALYSIS OPERATOR-C Sex: F C Reason For Study: Chest Pain Stress Results Protocol: Andrew Protocol Maximum Predicted HR: 181 bpm Target HR: 154 bpm% Max imum Predicted HR: 99 % DurationHeart Rate Stage (mm:ss) (bpm) BPCom ment Baseline 87 98/60 No Chest Pain Andrew Protocol Stage I 3:00 16 0 116/70No Chest Pain; Mild Dyspnea Andrew Protocol Stage II 2:30 17 9 146/70No Chest Pain; Moderate to Severe Dyspnea Recovery 99 110/68 No Chest Pain Stress Duration: 5:30 mm:ss Maximum Stress HR: 179 bpmM ETS: 7 Baseline Echocardiogram Findings Stress Echo Wall motion Data Resting WMIntermediate WMStress WM Resting Wall Motion Wall Motion Stress All segments Normal. All segments Hyperkinetic. Ejection Fraction 55 %. Ejection Fraction 70 %. Stress Results Heart rate response: appropriate Blood pressure response: low resting BP - appropriate response Arrhythmias: none Functional capacity: decreased Stopped secondary to: dyspnea. EKG Data Baseline ECG: NSR. Peak exercise ECG: no obvious ECG changes. Symptoms with Stress No c/o chest discomfort during exercise / recovery. Interpretation Summary Negative (adequate) Stress Echocardiogram Ordering Physician: Shon Garza Referring Physician: Morgan Redd M.D. Performed By: Patrick Cuellar RCS 08/20/184 Date Morgan Rded MD CC: ANNEMARIE Garza; YANET Traore Date Dictated: 08/20/1848 Date Transcribed: 08/20/181623 Arabic Teacher: Signed THYROID UPTAKE Observed: 2018 Status: F Source: [place] SINGLE OR MULT 7:17 AM [facility] [place] [facility] Imaging Services [address] [place] [address] Thyroid Uptake Single or Mult MR#: [id number] Acct: [id number] Name: SHAHLA RUVALCABA Rep #: [id number] : 1980 F 38 From: Ang Skaggs DO PCP: YANET Sotomayor Status: REG CLI Study: Thyroid Uptake Single or Mult Date of Exam: 07/21/18 Exam# [id number] Ordering Dr: Ang Traore CLINICAL: 38-year-old female with suspected clinical thyroiditis. I-123 THYROID UPTAKE and SCAN COMPARISON: Thyroid ultrasound report 05/26/2018 FINDINGS: The patient was administered a 341 uCi I-123 capsule by mouth. The 4-hour I-123 radioactive iodine thyroidal uptake was calculated to be 41.5 % (normal 5 to 25 %). The 24-hour I-123 radioactive iodine thyroidal uptake was calculated to be 78.4 % (normal 5 to 40 %). The I-123 thyroid scan demonstrates homogeneous radiopharmaceutical concentration throughout the right lobe of a U shaped thyroid gland. A hypofunctioning nodule is demonstrated in the midpole of the left lobe of thyroid colloid. NM/Thyroid Uptake Single or Mult IMPRESSION: 1. ABNORMAL ELEVATED 4- and 24-hour I-123 radioactive iodine thyroidal uptakes. 2. The I-123 thyroid scan in conjunction with the calculated iodine uptake values is most consistent with the presence of a diffuse toxic goiter. 3. The hypofunctioning nodule involving the left lobe of thyroid colloid may be secondary to a TSH dependent adenoma or potentially neoplasm. Following clinical stabilization, histopathologic analysis is recommended. Electronically Signed: Ang Skaggs DO at 22:45 EDT Tel , Service support , CC: YANET Traore Arabic Teacher: Signed 12 LEAD ELECTROCARDIOGRAM Observed: 07/19/2018 Status: F Source: [place] 3:08 PM [facility] [place] [facility] [address] [place] [address] 12 Lead EKG 07/15/18 6256 MR#: [id number] Acct: [id number] Name: SHAHLA RUVALCABA Rep #: [id number] : 1980 37 From: Collins Thomas MD Attending Dr: Status: DEP ER Ordering Dr: Woo Gee MD Date: 07/15/18 Location: ED Sex: F C Admitted: Test Reason : CP Blood Pressure : / mmHG Vent. Rate : 080 BPM Atrial Rate : 080 BPM P-R Int : 132 ms QRS Dur : 082 ms QT Int : 356 ms P-R-T Axes : 070 047 050 degrees QTc Int : 410 ms Normal sinus rhythm Normal ECG Confirmed by COLLINS THOMAS MD ([id number]), editor magazine THOMAS GONZALEZ ([id number]) on 07/19/2018 3:07:57 PM Referred By: JOLENE Confirmed By:COLLINS THOMAS MD 07/19/18 1508 Date Collins Thomas MD CC: MUD ANALYSIS OPERATOR-C Ang Traore; Woo Gee MD Signed VITAMIN D,25 HYDROXY Collected: 07/19/2018 Status: F Source: [place] 8:20 AM [facility] [place] TYPE CODE TESTS RESULT OUT OF RANGE REFERENCE UNITS LAB L506.1000 29.95-100.01 ng/mL Normal Vitamin D 42.0 25-OH Result Comment: Vitamin D 25(OH) Status Range Deficiency <20 ng/mL (50nmol/L) Insuffciency 20 - 30 ng/mL (50 - 75 nmol/L) Sufficiency 30 - 100 ng/mL (75 - 250 nmol/L) Toxicity >100 ng/mL (>250 nmol/L) Performed By: #### L506.1000 #### [facility] [address] [place], [address] CARDIOLOGY VISIT Observed: 07/16/2018 Status: F Source: [place] REPORT 3:42 PM [facility] [place] [facility] [address] [place] [address] OFFICE VISIT Date of Service: 07/16/18 MR#: [id number] Acct: [id number] Name: SHAHLA RUVALCABA Rep #: [id number] : 1980 Provider: ANNEMARIE Garza Age/Sex: 37/F Location: [facility] Status: Signed HPI HPI Details: SHAHLA RUVALCABA, is a 37 F who presents to the office today for a cardiovascular outpatient follow-up. She has a history of palpitations, premature ectopic complexes/PVCs and mitral valve prolapse. She also has a history of possible paroxysmal atrial fibrillation noted on Holter monitor in September 2016 at outside facility. She presented to [facility] emergency department on 07/05/18 with chest pain/pressure associated with palpitations. Her EKG shows sinus rhythm at a rate of 80 bpm and no signs of acute ischemia or infarct. Her troponin was negative. She was felt to be low risk for life-threatening etiologies and was discharged home for outpatient follow-up. She states two days ago she noticed a sensation of lightheadedness and feeling whoozy. Yesterday she presented to the ER for chest pain that is different than previous chest pain that she associates with her verapamil. She states this pain has waxed and waned. She states feeling nausea with this. She denies any SOB at rest, but states she is unable to go up steps without getting significantly short of breath. She also mentions two episodes over the last six months in which she awoke with elevated heart rates accompanied with SOB. Her palpitations have been unchanged over the last two days. She denies consistent edema or claudication. She denies orthopnea, fever, blood in urine, blood in stool or myalgia. She states she continues to feel fatigue despite normal TSH and blood count. Intake Vital Signs07/16/18 Height 5 ft 6 in 07/16/18 Weight: 176 lb 07/16/18 Body Mass Index (BMI) 28.4 07/16/18 Blood Pressure 110/76 07/16/18 Blood Pressure Location Lt brachial Intake Visit Reasons: Chest pain Meat Puller Required: No Accompanied by: None Is patient in pain?: No Allergies Penicillins Adverse Reaction (Severe, Verified 07/16/18 14:35) Vomiting Medications verapamil ER 120 mg 24 hr capsule,extended release 120 mg PO QDAY #90 cap 11/23/17 [Rx Confirmed 07/16/18] aspirin 81 mg chewable tablet 81 mg PO QDAY 03/11/18 [History Confirmed 07/16/18] levothyroxine 100 mcg tablet 100 mcg PO QDAY #30 tab 03/11/18 [Rx Confirmed 07/16/18] Ergocalciferol (Vitamin D2) [Drisdol] 50,000 unit PO QWEEK 06/17/18 [History Confirmed 07/16/18] Ejection fraction %: 55 to 59 PFSH Medical History Hypothyroidism (acquired) (Chronic) Abnormal CBC (Acute) Fatigue (Chronic) Hypothyroidism (Chronic) Premature ventricular contractions (Chronic) Mitral valve prolapse (Chronic) Atrial fibrillation (Chronic) Chronic fatigue and malaise (Chronic) Chronic headaches (Chronic) Eczema (Chronic) Goiter (Chronic) Family History Mother Hypertension CAD (coronary artery disease) Social History Smoking Status: Never smoker alcohol intake: current alcohol intake frequency: holidays/special occasions only substance use type: does not use caffeine: Yes Type: coffee Number of servings: 2 ROS Const Const: Positive for fatigue; negative for weakness, body ache, fever(s) or chills ENT ENT: Negative for dizziness Cardio Chest Pain: Yes Palpitations: No Edema: None Muscle aches with walking: None Resp Respiratory: Positive for SOB with activity and paroxysmal nocturnal dyspnea; negative for SOB at rest or SOB orthopnea\SOB lying down GI GI: Positive for nausea; negative black,tarry stools, bright, red blood in stools or vomiting blood/hematemesis : Negative for hematuria or frequent nighttime urination/ nocturia Musc Musc: Negative for muscle aches/ myalgia Skin Skin: Negative non-healing lesions or rash Neuro Neuro: Negative for weakness, dizziness, lightheadedness, near syncope, syncope or orthostatic symptoms Endo Endo: Positive for fatigue Allergy Allergy/Immunology: Negative for rash Cardiology Exam Const Appearance: cooperative, healthy appearing, comfortable and no acute distress Nutritional Appearance: average body habitus and well nourished Orientation: alert, awake and oriented x3 Head Head: normal to inspection Ears: hearing grossly normal bilaterally Nose: external nose normal Face and Sinus: face symmetric Mouth: oral mucosae normal Eyes General: appearance normal, both eyes and all related structures Eyelids: eyelids normal EOM: EOM intact bilaterally Neck Neck: no JVD and normal visual inspection Carotids: normal carotid upstroke Chest Chest inspection: normal inspection of the chest and normal respiratory effort; negative cough Auscultation: Bilateral: Clear to Auscultation Cardio Rate: regular rate Rhythm: regular rhythm Heart sounds: S1 normal and S2 normal; negative rub, gallop or murmur GI GI: normal to inspection Neuro General: alert, awake, oriented x3 and CN's II-XI intact bilaterally Skin Skin: no rashes or lesions noted Extremities Pulses: Normal: Right Posterior Tibial Pulse, Left Posterior Tibial Pulse, Right Radial Pulse, Left Radial Pulse Lower Extremity Edema: None: Bilateral Psych Psychological: normal affect Supplemental Info Echocardiogram from August 2017 showed an ejection fraction 55%, anterior leaflet diffuse mitral valve thickening, trivial mitral valve insufficiency, mild tricuspid valve insufficiency, trivial pulmonic valve insufficiency, RVSP of 18 mmHg, and positive agitation saline contrast study for right to left interatrial shunt compatible with a small PFO versus ASD. Holter monitor from September 2016 showed predominant rhythm of sinus, rare PVCs, one short run compatible with A. fib with RVR at 150 bpm for 8 beats, and no symptoms reported in diary. Assessment AND Plan 1. Chest pain, unspecified type R07.9 Plan Patient's evaluation in emergency department yesterday appears negative. She will undergo a stress echocardiogram to evaluate for any ischemic component during exercise. Further recommendation will be made based on results of this test. If stress echocardiogram is negative and chest pain persists, we can further consider changing her verapamil to alternative calcium channel porsha. Orders Orders: 2. Fatigue, unspecified type R53.83 Plan The exact etiology of this is is unclear. Her most recent hemoglobin on 07/15/18 was 13.9. Her most recent TSH on 05/03/18 was 1.3. She states she is currently off of her thyroid medication to undergo a nuclear thyroid scan. Her stress echocardiogram will help evaluate if any cardiac/ischemic component. Orders Orders: 3. Dyspnea on exertion R06.09 Plan She states that she she gets extremely short of breath when going up steps. She does not notice this on flat terrain. Her echocardiogram in August 2017 showed ejection fraction 55%, trivial mitral valve insufficiency, and mild tricuspid valve insufficiency with an RVSP of 18 mmHg. Her stress echocardiogram will help evaluate her valvular response to exercise. If this is negative further, consideration for pulmonology consult or further pulmonary workup will be made. Orders Orders: 4. Mitral valve prolapse I34.1 Plan Her echocardiogram in August 2017 showed anterior leaflet diffuse mitral thickening and trivial mitral valve insufficiency. She will continue current medications and we will continue to monitor. Orders Orders: 5. PVC (premature ventricular contraction) I49.3 Plan Patient denies any increasing or changing palpitations. At this time, she will continue with current medications and we will continue to monitor. Plan Detail Additional Comments Thank you for allowing us to participate in the patient's plan of care, if you have any questions please do not hesitate to call. This note was generated using a voice recognition system and there may be incorrect words, spelling, or punctuation that were not noted upon reviewing the office note prior to saving. Follow Up 14 Months (PFM) 6 Weeks ([facility]) Coding Level of Care Code Off vis,est,level 4 Diagnoses Chest pain, unspecified type R07.9 Chest pain type: unspecified Fatigue, unspecified type R53.83 Fatigue type: unspecified Dyspnea on exertion R06.09 Mitral valve prolapse I34.1 PVC (premature ventricular contraction) I49.3 Coding Level of Care Code Off vis,est,level 4 Diagnoses Chest pain, unspecified type R07.9 Chest pain type: unspecified Fatigue, unspecified type R53.83 Fatigue type: unspecified Dyspnea on exertion R06.09 Mitral valve prolapse I34.1 PVC (premature ventricular contraction) I49.3 07/16/18 1542 <Electronically signed by Shon HOLT> Date Shon HOLT Cosigner Signature: Date (if applicable) CC: MUD ANALYSIS OPERATOR-C Ang Traore EMERGENCY DEPARTMENT Observed: 07/16/2018 Status: F Source: [place] SUMMARY 7:52 AM [facility] [place] [facility] Medical Records Department [address] [place] [address] Emergency Department Summary 07/15/18 2312 MR#: [id number] Acct: [id number] Name: SHAHLA RUVALCABA Rep #: [id number] : 1980 37 From: Woo Gee MD PCP: YANET Sotomayor Status: DEP ER - ER Visit Summary Date of Service: 07/15/18 Chief Complaint: Pain History of Present Illness: The patient is a 37 F with chest pain that started sometime this morning. The pain has been constant to some degree all day today, waxing and waning. It feels like pressure. It is retrosternal does not radiate. Nothing seems to bring on or make it worse. Nothing makes it better. Associated with palpitations. She has palpitations at baseline however. She also has some nausea and lightheadedness. No history of coronary disease, ACS, stress testing, or catheterization. No history of aortic disease. No history of DVT, PE, recent surgery, cancer, or travel. Former smoker. History of MVP and PVCs. Takes aspirin and verapamil. Physical Examination: Afebrile vital signs unremarkable. Patient alert and oriented. No acute distress. Skin normal color without diaphoresis or pallor. Heart regular rate and rhythm. Lungs clear to auscultation in all vickers. Extremities nontender with no edema. Good pulses. Test Results: EKG shows sinus rhythm at a rate of 80. No sign of acute ischemia or infarct pattern. No dysrhythmias noted. Laboratory studies and x- ray pending. Emergency Department Course and Treatment: Patient placed on a monitor. Will check EKG, labs, chest x-ray. She is PERC negative. Troponin is pending, but overall she is low risk for ACS. Nothing to suggest dissection. No infectious symptoms. Treated with Toradol and norco for pain. On reevaluation, patient is unchanged. Workup is unremarkable. Patient is no risk or very low risk for any life-threatening etiologies. I believe she is appropriate for outpatient follow-up. Patient will be discharged. Follow-up with her doctor. Treatment Plan: As above Disposition: Discharged Impression: 1. Chest pain unclear etiology This note was generated with [employer] dictation software. It may contain incorrect words, spelling, and punctuation that were not noted in review of the chart prior to signing ED Disposition - Plan for ED Patient: Chief Complaint: Chest Pain Referrals: Ang Traore NP-C [Primary Care Provider] - What to do if you have Problems For any increased pain, shortness of breath, bleeding, nausea or vomiting, chest pain, or any unexpected problems, contact your Primary Care Provider. Call [facility] ([phone]) or report to the closest Emergency Room. Call 911 if necessary. 07/16/18751 <Electronically signed by Woo Gee MD> Date Woo Gee MD Cosigner Signature (If Indicated): Date CC: MUD ANALYSIS OPERATOR-C Ang Traore DISCHARGE INSTRUCTION Observed: 07/16/2018 Status: F Source: [place] 7:52 AM [facility] [place] [facility] Medical Records Department [address] [place] [address] Discharge Instruction 07/16/18 0002 MR#: [id number] Acct: [id number] Name: JORDONSHAHLA Claudia Rep #: [id number] : 1980 37 From: Woo Gee MD PCP: YANET Sotomayor Status: DEP ER ED Disposition - Plan for ED Patient: Chief Complaint: Chest Pain Instructions: ED Chest Pain Atypical Unkn Cause Referrals: Ang Traore NP-C [Primary Care Provider] - What to do if you have Problems For any increased pain, shortness of breath, bleeding, nausea or vomiting, chest pain, or any unexpected problems, contact your Primary Care Provider. Call [facility] ([phone]) or report to the closest Emergency Room. Call 911 if necessary. 07/16/18751 <Electronically signed by Woo Gee MD> Date Woo Gee MD Cosigner Signature (If Indicated): Date CC: YANET Traore CHEST 1 VIEW Observed: 07/15/2018 Status: F Source: [place] (PORTABLE) 11:09 PM [facility] REPOSITORY [facility] [place] [address] Chest 1 View (Portable) MR#: [id number] Acct: [id number] Name: SHAHLA RUVALCABA Rep #: [id number] : 1980 F 37 From: Lin Ocasio MD PCP: YANET Sotomayro Status: PRE ER Study: Chest 1 View (Portable) Date of Exam: 07/15/18 Exam# [id number] Ordering Dr: Woo Gee MD STUDY: X-RAY CHEST REASON FOR EXAM: Female, 37 years old. Chest pain. TECHNIQUE: 1 view COMPARISON: Prior chest radiograph of October 07, 2015 FINDINGS: The lungs are clear and expanded. There is no demonstrated pleural abnormality. Normal size heart. Normal mediastinum and bhumkia. Normal visualized pulmonary arteries. Normal visualized aortic arch and descending thoracic aorta. Normal visualized thoracic spine. Normal visualized ribs, clavicles, and shoulders. There is no demonstrated abnormality of the visualized soft tissue structures of the upper abdomen. RAD/Chest 1 View (Portable) IMPRESSION: Normal x-ray examination of the chest. Electronically Signed: Lin Ocasio MD at 23:33 EDT , Service support , CC: YANET Traore; Woo Gee MD Arabic Teacher: Signed CBC W/DIFF, AUTOMATED Collected: 07/15/2018 Status: F Source: [place] 11:00 PM [facility] [place] TYPE CODE TESTS RESULT OUT OF RANGE REFERENCE UNITS LAB L100.1000 4.4-11.0 K/mm3 Normal WBC 6.6 LAB L100.1200 4.2-5.4 M/mm3 Normal RBC 4.67 LAB L100.1300 12.0-15.0 g/dl Normal HGB 13.9 LAB L100.1400 37-47 % Normal HCT 41.6 LAB L100.1500 81-99 fL Normal MCV 89.1 LAB L100.1600 27.0-32.0 pg Normal MCH 29.8 LAB L100.1700 32-36 g/gl Normal MCHC 33.4 LAB L100.1810 11.6-14.6 % Normal RDW CV 13.2 LAB L100.1820 35.1-43.9 fl Normal RDW SD 42.9 LAB L100.1900 150-450 K/mm3 Normal PLT 268 LAB L100.2000 6.2-12.0 fl Normal MPV 11.3 LAB L100.2100 47-70 % Low NEUT% 45.9 LAB L100.2200 19-41 % High LY% 41.8 LAB L100.2300 0-10 % Normal MONO% 9.5 LAB L100.2400 0-5 % Normal EO% 1.8 LAB L100.2500 0-1 % Normal BASO% 0.8 LAB L100.2550 0.0-0.9 % Normal IM GRAN % 0.200 Result Comment: IG% - Immature Granulocytes (promyelocytes, myelocytes and metamyelocytes) > 1% indicates that a LEFT SHIFT is Present. LAB L100.2620 2.0-7.7 X10 3/uL Normal Absolute Neut 3.0 LAB L100.2720 0.83-4.51 X10 3/ul Normal Absolute Lymph 2.74 Performed By: #### L100.0100 #### [facility] [address] [place], [place], [address] BASIC METABOLIC Collected: 07/15/2018 Status: F Source: [place] PROFILE ([facility]) 11:00 PM [facility] [place] TYPE CODE TESTS RESULT OUT OF RANGE REFERENCE UNITS LAB L501.0100 74-106 mg/dL Normal GLU 93 Result Comment: Please note revised GLUCOSE reference range effective 2017. LAB L501.1000 7-18 mg/dL Normal BUN 12 LAB L501.1100 0.55-1.02 mg/dL Normal CREAT,SERUM 0.79 Result Comment: The validity of the calculated GFR AND GFRAA in patients over 70 years has not been determined. Clinical correlation is essential. LAB L501.1110 >60 mL/min Normal EST GFR 86 Result Comment: Non- GFR Calc LAB L501.1115 >60 mL/min Normal EST GFR - AA 104 Result Comment: GFR Calc LAB L501.1255 ml/min Normal Estimated CRCL 90.39 LAB L501.1300 10-20 RATIO Normal BUN/CRE 15.2 LAB L501.2200 8.5-10 mg/dL Normal .1 CA 10.1 LAB L501.5300 136-14 mmol/L Normal 5 NA 143 LAB L501.5600 3.5-5. mmol/L Normal 1 K 3.7 LAB L501.5900 98-107 mmol/L Normal CL 107 LAB L501.6100 21.0-3 mmol/L Normal 2.0 CO2 28.0 LAB L501.6200 5-15 Normal GAP 8 Performed By: #### L500.2500, L501.4010 #### [facility] [address] [facility]. [place], [place], [address] TROPONIN-I Collected: 07/15/2018 Status: F Source: [place] 11:00 PM [facility] [place] TYPE CODE TESTS RESULT OUT OF RANGE REFERENCE UNITS LAB L501.4010 <0.045 ng/mL Normal < 0.015 TROPONIN-I Result Comment: TROPONIN-I EXPECTED VALUES <0.045 Negative 0.045 - 0.590 Consistent with Cardiac Damage > OR = 0.600 Critical Value Not every elevated troponin is indicative of AL. These values should be used with clinical judgement in examining the patient's clinical picture for diagnosis. To establish a diagnosis of AL versus myocardial injury, there must be a demonstrated rise and/or fall in the troponin values, in addition to ischemic symptoms, EKG changes, new regional wall motion abnormality, and/or angiographical evidence. PLEASE NOTE: REFERENCE RANGES EDITED 18 Performed By: #### L500.2500, L501.4010 #### [facility] [address] 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 She has been on/off thyroid replacement without any appreciated improvement. See table: Laboratory Tests Hgb 12.2 12.9 13.3 Hct 37.5 39.8 40.5 Retic Count Hgb 13.0 Hct 40.5 Retic Count 0.41 L Power of Carton Making Machinist: No Living Will: No Health History: Past Medical History (Last Updated 06/17/18 @ 10:[address]) Atrial fibrillation (Acute) Chronic fatigue and malaise (Acute) Chronic headaches (Acute) Eczema (Acute) Goiter (Acute) Hypothyroidism (Acute) Mitral valve prolapse (Acute) Premature ventricular contractions (Acute) Family History (Last Reviewed 05/12/18 @ 16:06 by Shalini Holder) Mother Hypertension Allergies/Adverse Reactions: Allergy/AdvReac Type Severity Reaction Status Date / Time Penicillins AdvReac Severe Vomiting Verified 06/28/18 14:13 Risk Factors Social History Smoking Status Former smoker Tobacco Risk Data: Tobacco Risk Smoking Status Former smoker Type of tobacco: Smokeless tobacco usage: Items/Day: Year started: Years used: Counseled to quit/cut down: Reason for no counseling performed: Reason for no pharmacotherapy: Tobacco use comments: Passive smoke exposure: No Substance Risk Drug use: No Caffeine use [drinks/day]: 1 Alcohol use: No Type of alcohol: Drinks per day: Has patient felt the need to cut down: Has the patient been annoyed by complaints: Has the patient felt guilty about drinking: Has the patient needed an eye mechanical assembly in the mornings: Comments: Review of Systems Constitutional:: Reports: Fatigue. Denies: Fever, Sweats, Weight loss, Appetite change, Chills Cardiovascular:: Reports: Dyspnea on exertion - Has been evaluated by cardiology with no specific diagnosis made. Denies: Chest pain, Palpitations, Orthopnea, PND, Shortness of breath Respiratory: Reports: Shortness of breath upon exertion. Denies: Cough, Hemoptysis, Shortness of Breath, Wheezing Gastrointestinal:: Denies: Abdominal pain, Nausea, Vomiting, Diarrhea, Constipation, Hematochezia Genitourinary: Reports: - - Periods are not particularly heavy, lasting 3-5 days. Denies: Dysuria, Hematuria, Flank pain Musculoskeletal:: Denies: Back pain, Myalgia, Arthralgia Skin: Denies: Rash, Skin Changes, Wounds Neurological:: Denies: Headache, Dizziness, Visual changes, Tinnitus, Hearing loss Psychiatric: Reports: Depression - When asked directly if she feels depressed she answered at times, not every day. 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 Negative for: JVD, bilateral Cardiac:: Regular rate, Regular rhythm, Normal S1, Normal S2. Negative for: Murmur Lungs: Clear to auscultation, Excusion symmetrical. Negative for: Rhonchi, Wheezes Abdomen:: Soft, Non-tender, Non-distended. Negative for: Hepatosplenomegaly Extremities:: Negative for: Cyanosis, Edema Neurological: Neuro grossly intact Skin:: Negative for: Lesions, Rash, Petechiae, Ecchymosis Psychiatric:: Appropriate affect, Euthymic Lymphatics:: Negative for: Cervical lymphadenopathy, Supraclavicular lymphadenopathy, Axillary lymphadenopathy Laboratory Data: Reviewed CBCs in EMR, summary and HPI Assessment and Plan 37-year-old female presenting with chronic fatigue (2+ years) CBC shows reticulocytopenia and absence of anemia. This lab abnormality is of no clinical significance in absence of anemia. Her fatigue cannot be explained based on her CBC and there is no evidence to suggest a primary bone marrow disease. No further workup or recommendations from hematology. Thank you for involving me in her care. Medications: Prescriptions This Visit Medication Instructions Recorded Ergocalciferol (Vitamin D2) 50,000 unit PO QWEEK 06/17/18 [Drisdol] Primary Care Provider: YANET Sotomayor Referring Provider: YANET Sotomayor 06/28/18 1442 <Electronically signed by Aye Mojica MD> Date Aye Mojica MD Cosigner Signature: Date (if applicable) CC: MUD ANALYSIS OPERATORKaushikC Ang Traore; Aye Mojica MD Signed CBC W/DIFF, AUTOMATED Collected: 06/08/2018 Status: F Source: [place] 3:06 PM [facility] [place] TYPE CODE TESTS RESULT OUT OF RANGE REFERENCE UNITS LAB L100.1000 4.4-11.0 K/mm3 Normal WBC 6.4 LAB L100.1200 4.2-5.4 M/mm3 Normal RBC 4.48 LAB L100.1300 12.0-15.0 g/dl Normal HGB 13.0 LAB L100.1400 37-47 % Normal HCT 40.5 LAB L100.1500 81-99 fL Normal MCV 90.4 LAB L100.1600 27.0-32.0 pg Normal MCH 29.0 LAB L100.1700 32-36 g/gl Normal MCHC 32.1 LAB L100.1810 11.6-14.6 % Normal RDW CV 13.0 LAB L100.1820 35.1-43.9 fl Normal RDW SD 42.6 LAB L100.1900 150-450 K/mm3 Normal PLT 246 LAB L100.2000 6.2-12.0 fl Normal MPV 10.6 LAB L100.2100 47-70 % Normal NEUT% 60.9 LAB L100.2200 19-41 % Normal LY% 29.4 LAB L100.2300 0-10 % Normal MONO% 6.7 LAB L100.2400 0-5 % Normal EO% 2.5 LAB L100.2500 0-1 % Normal BASO% 0.5 LAB L100.2550 0.0-0.9 % Normal IM GRAN % 0.000 Result Comment: IG% - Immature Granulocytes (promyelocytes, myelocytes and metamyelocytes) > 1% indicates that a LEFT SHIFT is Present. LAB L100.2620 2.0-7.7 X10 3/uL Normal Absolute Neut 3.9 LAB L100.2720 0.83-4.51 X10 3/ul Normal Absolute Lymph 1.88 Performed By: #### L100.0100 #### [facility] [address] [place], [place], [id number] URGENT CARE VISIT Observed: 06/06/2018 Status: F Source: [place] REPORT 1:28 PM [facility] [place] [facility] [address] [place] [address] [address] [place], [place] [address] OFFICE VISIT Date of Service: 06/06/18 MR#: [id number] Acct: [id number] Name: SHAHLA RUVALCABA Rep #: [id number] : 1980 Provider: SULEIMAN Mcintosh Age/Sex: 37/F Location: [facility] Status: Signed Intake Intake Visit Reasons: SPLINTER R POINTER FINGER Chief Complaint: thorn splinter in right index finger Allergies Penicillins Adverse Reaction (Verified 05/12/18 16:06) Vomiting Medications verapamil ER 120 mg 24 hr capsule,extended release 120 mg PO QDAY #90 cap 11/23/17 [Rx Confirmed 05/12/18] aspirin 81 mg chewable tablet 81 mg PO QDAY 03/11/18 [History Confirmed 05/12/18] levothyroxine 100 mcg tablet 100 mcg PO QDAY #30 tab 03/11/18 [Rx Confirmed 05/12/18] PFSH Medical History Chronic headaches (Acute) Hypothyroidism (Acute) Premature ventricular contractions (Acute) Family History Mother Hypertension Social History Smoking Status: Former smoker alcohol intake: current substance use type: does not use HPI HPI Chief Complaint: thorn splinter in right index finger Details: SHAHLA RUVALCABA, is a 37 F who presents to the office today for removal of a thorn in her right index finger x2 hours. Her tried to remove it at home but it broke off. She has had several in the past 2 weeks from removing the thorn bushes from her yard that he was able to remove. ROS Const Constitutional: No body ache, chills, fatigue, fever(s), night sweats, change in appetite, headache(s) or excessive sweating Eyes Eyes: No visual disturbances, light sensitivity, eye pain or change in vision ENT ENT: Positive for other (hypothyroidism); no nasal discharge, sore throat, neck pain or headache(s) Resp Respiratory: No cough, chest congestion, hemoptysis, shortness of breath or wheezing Cardio Cardiology: Positive for chest pain with exertion; no shortness of breath, irregular heart rhythm, lightheadedness, generalized swelling, palpitations or excessive sweating Gastro GI: No diarrhea, nausea/dyspepsia or vomiting Genitourinary-Female: No burning urination, urinary frequency, urinary urgency, blood in urine or Vaginal Itching Musc Musculoskeletal: No joint pain, back pain, numbness, tingling or neck pain Skin Skin: Positive for other (thorn stuck in right index finger); no lesions, itching or rash Breast Breast: Positive for other (thorn stuck in right index finger) Neuro Neurology: No visual disturbances, numbness, tingling, dizziness, loss of vision or headache(s) Psych Psychiatric: No change in appetite, Positive for anxiety, No depression Endo Endocrine: Positive for other (hypothyroidism); no fatigue, cold intolerance, excessive sweating, flushing, heat intolerance or increased thirst/drinking Aller/Imm Allergy/Immunologic: No wheezing, itchy eyes, food intolerance, seasonal allergy symptoms or hives Brien/Lymp Hematologic/Lymphatic: No easy bruising Exam Const General: cooperative, no acute distress, anxious Orientation: alert, oriented x3 HENMT Head: normal to inspection, normocephalic Ears: hearing grossly normal bilaterally Nose: nasal mucous membranes and turbinates normal, no nasal discharge Face and sinus: normal facial exam, sinuses nontender Mouth: oral mucosae normal, oropharynx normal, tongue normal Teeth and gingiva: dentition normal, gingiva normal Throat: posterior oropharynx normal Eyes General: appearance normal, both eyes and all related structures Visual Vickers: normal visual vickers by confrontation Eyelids: eyelids normal Conjunctivae: conjunctivae normal Sclera: sclerae normal Neck Carotids: no bruits Lymphatic: no lymphadenopathy noted Chest Chest palpation AND inspection: normal inspection of the chest Resp Effort AND Inspection: normal respiratory effort, able to speak in complete sentences, symmetric chest movement, no audible wheezes, no cough, not labored, no respiratory distress Auscultation: Bilateral: Clear to Auscultation Cardio Rate: regular rate Rhythm: regular rhythm Heart Sounds: S1 normal, S2 normal GI Inspection: normal to inspection Auscultation: normal bowel sounds Musc Musculoskeletal: No joint tenderness or joint redness Skin General: no rashes or lesions noted Trauma: puncture (thorn/splinter right volar index finger) Other: Removed in clinic with 25 g needle after soaking wound in hibiclens/water x 5 min. 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 We agreed if she wanted Lidocaine that at any time I would stop and inject her with some, but she did not need it. Procedure time: approx. one minute. Bacitracin and bandaid applied. Neuro General: alert, oriented x3, moves all extremities Speech: speech normal Gait: normal gait Motor: muscle tone normal throughout Sensory Exam: no sensory deficits noted Extrem General: normal exam except as noted (except thorn splinter right index finger. ) Psych Appearance: grossly normal, well kempt Mental Status: mental status grossly normal Affect: tearful Speech and Movement: speech and movement normal Attitude: cooperative Thought Process: normal Thought Content: normal Judgment: judgment good Office Procedures Foreign Body Removal/Debrideme Time Out Consent Signed: No Time out performed: No Procedure Performed By Procedure performed by: Lyric Mcintosh Foreign Body Removal Foreign body, simple: Yes Wound debridement: No Details Details: Remainder of broken thorn removed from right volar index finger after soaking it X 5 min in Hibiclens and water. 25g needle used. No local anesthetic needed. 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 Patient left in good spirits. Assessment AND Plan Problems 1. Foreign body finger S60.169E Plan Keep wound clean/dry x 24 hours. Coding Level of Care Code Off vis,new,level 2 Diagnoses Foreign body finger S60.459A Additional Codes Foreign Body Removal - Foreign body, simple: Yes ([id number]) 06/06/18 1328 <Electronically signed by Lyric BEARDEN> Date Lyric BEARDEN Cosigner Signature: Date (if applicable) CC: 24 HR URINE CREATININE Collected: 05/31/2018 Status: F Source: [place] 7:31 AM [facility] [place] TYPE CODE TESTS RESULT OUT OF RANGE REFERENCE UNITS LAB L502.0100 24.0 HOURS Normal UR COLLECT 24.0 TIME LAB L502.0200 L Normal UR TOTAL 2.70 VOLUME LAB L502.0300 NO RANGE EST. mg/dL Normal URINE CREAT 49.50 LAB L502.0400 0.70-1.90 g/24 HR Normal UR.CREAT/24hr 1.35 Performed By: #### L502.000 #### [facility] [address] [place], [address] CORTISOL, 24 HR UR Collected: 05/31/2018 Status: F Source: [place] FREE 7:31 AM [facility] [place] [facility] TYPE CODE TESTS RESULT OUT OF RANGE REFERENCE UNITS LAB L3600.5500 Undefined ug/L Normal 11 CORTISOL,U FREE LAB L3600.5600 0-50 ug/24 hr Normal 30 CORTISOL,FR U24 Result Comment: This test was developed and its performance characteristics determined by [facility]. It has not been cleared or approved by the Food and Drug Administration. [facility]formed at: [facility] [id number] Resource Agent: Néstor Bloom MD, Phone: [phone] Performed By: #### L3600.5400 #### [facility] (refer to report for specific site) refer to report for address and phone number MISCELLANEOUS LAB Collected: 05/29/2018 Status: F Source: [place] PROCEDURE 7:12 AM [facility] [place] [facility] Order Comment: Comments: [id number] METANEPH,PLASMA,SEPERAT,REF Test(s) Ordered: [id number] METANEPH,PLASMA,SEPERAT,REF TYPE CODE TESTS RESULT OUT OF RANGE REFERENCE UNITS LAB L801.1541 Normal [facility] Result Comment: TEST RESULT UNITS REFERENCE INTERVAL Metanephrines, Frac., Pl. Free Normetanephrine, Pl 60 pg/mL 0 - 145 Metanephrine, Pl 26 pg/mL 0 - 62 Concentrations of Normetanephrine between 146 and 487 pg/mL, and Metanephrine between 63 and 255 pg/mL are considered indeterminate. Follow-up biochemical testing is recommended when patient levels fall within this indeterminate range. These tests include repeat testing of plasma/urinary fractionated metanephrines and plasma catecholamines. TESTING PERFORMED AT [facility]. ORIGINAL REPORT ON FILE IN LAB CONTAINS ADDITIONAL TEST SITE INFORMATION. Performed By: #### L801.1541 #### [facility] [address] 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 Hypothyroidism. TECHNIQUE: Ultrasound evaluation of the thyroid was performed with real-time and static ragland-scale imaging. COMPARISON: None. FINDINGS: RIGHT LOBE: The right lobe of the thyroid gland measures 5.5 x 2.4 x 2.4 cm. There is a heterogeneous echotexture. There are no demonstrated solid, cystic or complex lesions. There is prominent vascularity on color Doppler. LEFT LOBE: The left lobe of the thyroid gland measures 5.2 x 2.7 x 2.4 cm. There is a heterogeneous echotexture. There are no demonstrated solid, cystic or complex lesions. There is mildly prominent vascularity on color Doppler. ISTHMUS: The isthmus measures 5 mm. The regional lymph nodes are normal. US/Thyroid IMPRESSION: Borderline to mildly enlarged, diffusely heterogeneous and predominantly vascular thyroid gland, consistent with goiter or mild thyroiditis. Electronically Signed: Ole Singletary MD at 19:37 EDT , Service support , CC: YANET Traore Arabic Teacher: Signed RETIC PANEL Collected: 05/25/2018 Status: F Source: [place] 9:00 AM [facility] [place] [facility] TYPE CODE TESTS RESULT OUT OF RANGE REFERENCE UNITS LAB L101.0000 0.5-1.5 % Low RETIC 0.41 LAB L101.0060 3.00-15.90 % Low IM RET FRACTION 1.20 LAB L101.0090 30-35 pg Low RET-HE 26.9 LAB L101.0110 1.0-7.9 % Normal IPF 2.3 Result Comment: Low PLT + Low IPF suggest a bone marrow production disorder Low PLT + high IPF suggests peripheral destruction (e.g.ITP, TTP, HIT, DIC, autoimmune) or bone marrow recovery Trending of serial IPF measurements is recommended when evaluating for bone marrow respones Value above normal range indicates an increase in RBC cellular response from bone marrow. Performed By: #### L100.9950, L101.9900 #### [facility] [address] [place], [place], [address] ERYTHROCYTE SED RATE Collected: 05/25/2018 Status: F Source: [place] 9:00 AM [facility] [place] [facility] TYPE CODE TESTS RESULT OUT OF RANGE REFERENCE UNITS LAB L102.0000 0-20 mm/hr Normal SED RATE 4 Performed By: #### L100.9950, L101.9900 #### [facility] [address] [place], [address] URIC ACID Collected: 05/25/2018 Status: F Source: [place] 9:00 AM [facility] [place] [facility] Order Comment: Comments: [id number], Estrogens, Fractionated Is Patient Taking Vitamins or Folic Acid Supplements? N TYPE CODE TESTS RESULT OUT OF RANGE REFERENCE UNITS LAB L501.1400 2.6-6.0 mg/dL Normal URIC 2.8 Result Comment: The drugs N-Acetylcysteine and Metamizole may falsely depress this assay. Performed By: #### L501.1400, L501.2200, L501.5200, L501.6710, L505.7010, L506.0250, L3100.5125, L3100.5170, L3100.5420 #### [facility] [address] [place], [place], [address] (381) CALCIUM,TOTAL Collected: 05/25/2018 Status: F Source: [place] 9:00 AM [facility] [place] [facility] Order Comment: Comments: [id number], Estrogens, Fractionated Is Patient Taking Vitamins or Folic Acid Supplements? N TYPE CODE TESTS RESULT OUT OF RANGE REFERENCE UNITS LAB L501.2200 8.5-10.1 mg/dL Normal CA 9.8 Performed By: #### L501.1400, L501.2200, L501.5200, L501.6710, L505.7010, L506.0250, L3100.5125, L3100.5170, L3100.5420 #### [facility] [address] [place], [place], [id number] MAGNESIUM Collected: 05/25/2018 Status: F Source: [place] 9:00 AM [facility] [place] [facility] Order Comment: Comments: [id number], Estrogens, Fractionated Is Patient Taking Vitamins or Folic Acid Supplements? N TYPE CODE TESTS RESULT OUT OF RANGE REFERENCE UNITS LAB L501.5200 1.6-2.6 mg/dL Normal MG 2.0 Performed By: #### L501.1400, L501.2200, L501.5200, L501.6710, L505.7010, L506.0250, L3100.5125, L3100.5170, L3100.5420 #### [facility] [address] [place], [place], [id number] CRP Collected: 05/25/2018 Status: F Source: [place] 9:00 AM [facility] [place] [facility] Order Comment: Comments: [id number], Estrogens, Fractionated Is Patient Taking Vitamins or Folic Acid Supplements? N TYPE CODE TESTS RESULT OUT OF RANGE REFERENCE UNITS LAB L501.6710 0.0-3.0 mg/L Normal < 2.90 C-REACTIVE PROT Result Comment: C-Reactive Protein (CRP) provides useful information for the diagnosis, therapy and monitoring of inflammatory processes and associated diseases. For the evaluation of Relative Risk for Cardiovascular Disease, a High Sensitivity CRP (HSCRP) should be ordered. Performed By: #### L501.1400, L501.2200, L501.5200, L501.6710, L505.7010, L506.0250, L3100.5125, L3100.5170, L3100.5420 #### [facility] [address] [place], [place], [id number] RHEUMATOID FACTOR Collected: 05/25/2018 Status: F Source: [place] 9:00 AM [facility] Order Comment: Comments: [id number], Estrogens, Fractionated Is Patient Taking Vitamins or Folic Acid Supplements? N TYPE CODE TESTS RESULT OUT OF RANGE REFERENCE UNITS LAB L505.7010 <15 IU/mL Normal RHEUMATOID FAC < 10.0 Performed By: #### L501.1400, L501.2200, L501.5200, L501.6710, L505.7010, L506.0250, L3100.5125, L3100.5170, L3100.5420 #### [facility] [address] [place], [place], [id number] FOLATES, (FOLIC ACID) Collected: 05/25/2018 Status: F Source: [place] 9:00 AM [facility] Order Comment: Comments: [id number], Estrogens, Fractionated Is Patient Taking Vitamins or Folic Acid Supplements? N TYPE CODE TESTS RESULT OUT OF RANGE REFERENCE UNITS LAB L506.0250 3.1-55.4 ng/mL Normal FOLATES 36.40 Performed By: #### L501.1400, L501.2200, L501.5200, L501.6710, L505.7010, L506.0250, L3100.5125, L3100.5170, L3100.5420 #### [facility] [address] [place], [place], [id number] FOLLICLE STIMULATING Collected: 05/25/2018 Status: F Source: [place] HORMONE 9:00 AM [facility] Order Comment: Comments: [id number], Estrogens, Fractionated Is Patient Taking Vitamins or Folic Acid Supplements? N TYPE CODE TESTS RESULT OUT OF RANGE REFERENCE UNITS LAB L3100.5125 mIU/mL Normal FSH 7.5 Result Comment: NORMAL REFERENCE RANGES FEMALE FOLLICULAR 2.3 - 12.6 mIU/mL MID-CYCLE PEAK 5.2 - 17.5 mIU/mL LUTEAL 1.7 - 12.9 mIU/mL POST-MENOPAUSAL ON MHT 5.9 - 72.8 mIU/mL NOT ON MHT 12.7 - 132.2 mlU/mL MALE 0.7 - 10.8 mIU/mL NEW TEST METHOD AND REFERENCE RANGES MARCH 22, 2012 Performed By: #### L501.1400, L501.2200, L501.5200, L501.6710, L505.7010, L506.0250, L3100.5125, L3100.5170, L3100.5420 #### [facility] [address] [place], [place], [id number] LUTEINIZING HORMONE Collected: 05/25/2018 Status: F Source: [place] 9:00 AM [facility] Order Comment: Comments: [id number], Estrogens, Fractionated Is Patient Taking Vitamins or Folic Acid Supplements? N TYPE CODE TESTS RESULT OUT OF RANGE REFERENCE UNITS LAB L3100.5170 mIU/mL Normal LH 7.0 Result Comment: NORMAL REFERENCE RANGES FEMALE FOLLICULAR 1.9 - 26.2 mIU/mL MID-CYCLE PEAK 22.8 - 76.1 mIU/mL LUTEAL 0.6 - 16.6 mIU/mL POST-MENOPAUSAL ON MHT 1.1 - 52.4 mIU/mL NOT ON MHT 8.6 - 61.8 mIU/mL MALE 1.2 - 10.6 mIU/mL NEW TEST METHOD AND REFERENCE RANGES MARCH 22, 2012 Performed By: #### L501.1400, L501.2200, L501.5200, L501.6710, L505.7010, L506.0250, L3100.5125, L3100.5170, L3100.5420 #### [facility] [address] [place], [place], [id number] PROLACTIN Collected: 05/25/2018 Status: F Source: [place] 9:00 AM [facility] Order Comment: Comments: [id number], Estrogens, Fractionated Is Patient Taking Vitamins or Folic Acid Supplements? N TYPE CODE TESTS RESULT OUT OF RANGE REFERENCE UNITS LAB L3100.5420 ng/mL Normal PROLACTIN 10.6 Result Comment: NORMAL REFERENCE RANGES FEMALE NON- 2.2 - 30.3 ng/mL 8.1 - 347.6 ng/mL POST-MENOPAUSAL 0.7 - 31.5 ng/mL MALE 2.5 - 17.4 ng/mL NEW TEST METHOD AND REFERENCE RANGES MARCH 22, 2012 Performed By: #### L501.1400, L501.2200, L501.5200, L501.6710, L505.7010, L506.0250, L3100.5125, L3100.5170, L3100.5420 #### [facility] [address] [place], [place], [id number] PTHIN Collected: 05/25/2018 Status: F Source: [place] 9:00 AM [facility] TYPE CODE TESTS RESULT OUT OF RANGE REFERENCE UNITS LAB L509.1000 18.4-80.1 pg/mL Normal PTHIN 71.9 Performed By: #### L509.1000 #### [facility] [address] [place], [address] VITAMIN B12 Collected: 05/25/2018 Status: F Source: [place] 9:00 AM [facility] TYPE CODE TESTS RESULT OUT OF RANGE REFERENCE UNITS LAB L503.0105 211-911 pg/mL Normal Vitamin B12 802 Performed By: #### L503.0105, L506.1000 #### [facility] [address] [place], [address] VITAMIN D,25 HYDROXY Collected: 05/25/2018 Status: F Source: [place] 9:00 AM [facility] TYPE CODE TESTS RESULT OUT OF REFERENCE UNITS RANGE LAB L506.1000 29.95-100.01 ng/mL Low Vitamin D 18.2 25-OH Result Comment: Vitamin D 25(OH) Status Range Deficiency <20 ng/mL (50nmol/L) Insuffciency 20 - 30 ng/mL (50 - 75 nmol/L) Sufficiency 30 - 100 ng/mL (75 - 250 nmol/L) Toxicity >100 ng/mL (>250 nmol/L) Performed By: #### L503.0105, L506.1000 #### [facility] [address] [place], [place], [id number] ANTINUCLEAR ANTIBODIES Collected: 05/25/2018 Status: F Source: [place] DIRECT 9:00 AM [facility] TYPE CODE TESTS RESULT OUT OF RANGE REFERENCE UNITS LAB L3100.5475 Negative Normal Negative LORETTA-DIRECT Result Comment: Performed at: - [facility] [id number] Resource Agent: Fabian Vera PhD, Phone: [phone] Performed By: #### L3100.5475 #### [facility] (refer to report for specific site) refer to report for address and phone number MISCELLANEOUS LAB Collected: 05/25/2018 Status: F Source: [place] PROCEDURE 9:00 AM [facility] Order Comment: Comments: [id number], Estrogens, Fractionated Test(s) Ordered: [id number], Estrogens, Fractionated TYPE CODE TESTS RESULT OUT OF RANGE REFERENCE UNITS LAB L801.1541 Normal [facility] Result Comment: TEST RESULT LIMITS Estrogens Fractionated, S Estrone, Serum 47 pg/mL Age Male Female 0 - 5 years 18 - 53 19 - 46 6 - 7 years 17 - 48 17 - 44 8 - 9 years 20 - 54 31 - 70 10 - 11 years 21 - 49 28 - 68 12 - 14 years 17 - 44 57 - 140 Adult 12 - 72 See below Female: Follicular Phase 37 - 138 Mid-cycle 60 - 229 Luteal Phase 50 - 114 Post Menopausal 14 - 103 Estradiol 54.3 pg/mL Adult Female: Follicular phase 12.5 - 166.0 Ovulation phase 85.8 - 498.0 Luteal phase 43.8 - 211.0 Postmenopausal <6.0 - 54.7 1st trimester 215.0 - >4300.0 Girls (1-10 years) 6.0 - 27.0 Susan ECLIA methodology TESTING PERFORMED AT [facility]. ORIGINAL REPORT ON FILE IN LAB CONTAINS ADDITIONAL TEST SITE INFORMATION. Performed By: #### L801.1541 #### [facility] [address] [place], [address] ASO TITER Collected: 05/25/2018 Status: F Source: [place] 9:00 AM [facility] TYPE CODE TESTS RESULT OUT OF RANGE REFERENCE UNITS LAB L3100.7700 0.0-200.0 IU/mL Normal ASO 6031 52.5 Result Comment: Performed at: [address] [id number] Resource Agent: Néstor Bloom MD, Phone: [phone] Performed at: [facility] [id number] Resource Agent: Fabian Vera PhD, Phone: [phone] Performed By: #### L3100.7700, L3400.4000 #### [facility] (refer to report for specific site) refer to report for address and phone number RENIN, PLASMA Collected: 05/25/2018 Status: F Source: [place] 9:00 AM [facility] TYPE CODE TESTS RESULT OUT OF RANGE REFERENCE UNITS LAB L3400.4000 0.167-5.380 ng/mL/hr Normal RENIN,PL 1.677 2006 Result Comment: This test was developed and its performance characteristics determined by [employer]. It has not been cleared or approved by the Food and Drug Administration. Performed By: #### L3100.7700, L3400.4000 #### [facility] (refer to report for specific site) refer to report for address and phone number OFFICE VISIT REPORT Observed: 05/23/2018 Status: F Source: [place] 5:05 PM [facility] [address] [address] OFFICE VISIT Date of Service: 05/12/18 MR#: [id number] Acct: [id number] Patient: SHAHLA RUVALCABA Rep #: [id number] : 1980 Provider: Lacie Lam NP Age/Sex: 37/F Location: [facility] Status: Signed Intake Vital Signs05/12/18 Height 5 ft 7 in 05/12/18 Weight: 178 lb 6 oz 05/12/18 Body Mass Index (BMI) 27.9 05/12/18 Blood Pressure 115/78 05/12/18 Blood Pressure Location Rt popliteal 05/12/18 Blood Pressure Position Sitting Intake Visit Reasons: Thyroid dysfunction Meat Puller Required: No Accompanied by: Self Is patient in pain?: No Allergies Penicillins Adverse Reaction (Verified 05/12/18 16:06) Vomiting Medications verapamil ER 120 mg 24 hr capsule,extended release 120 mg PO QDAY #90 cap 11/23/17 [Rx Confirmed 05/12/18] aspirin 81 mg chewable tablet 81 mg PO QDAY 03/11/18 [History Confirmed 05/12/18] levothyroxine 100 mcg tablet 100 mcg PO QDAY #30 tab 03/11/18 [Rx Confirmed 05/12/18] Is last menstrual period known: No Post menopausal: No Patient : No PFSH Medical History Chronic headaches (Acute) Hypothyroidism (Acute) Premature ventricular contractions (Acute) Family History Mother Hypertension Social History Smoking Status: Former smoker alcohol intake: current substance use type: does not use HPI HPI Details: HPI Details: SHAHLA RUVALCABA, is a 37 F who presents to the office today for follow up of hypothyroid Continues on levothyroxine.but overall does not feel any better. History Family PCP treated her with levothyroxine 100mcg as well as cytomel but never felt any better even though her numbers normalized. She remained fatigued and had no energy. She then stopped the medication. She reports she has been off the medication for about one year. She is here today for a urgent visit prior to her scheduled visit due to a TSH finding of 25.80 and free T4 of 0.57. CMP with no findings. 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 She also reports a history of migraines, occ use of alcohol, and takes verapamil for treatment of PVC's. Has psoaris, Severity, modifying factors, context, and associated signs and symptoms are as follows: Thyroid pain: No Energy: Reduced Sleep: Not awakened refreshed Temp: Cold intolerance GI: Normal bowel Weight: Flucuates Eyes: No change in vision Memory: unchanged Diaphoresis: Not significant Skin: Dry Hair : sheds Neuro: No numbness, tingling or tremors Exam Const General: comfortable, anxious Nutritional Appearance: well nourished [facility] Head: normal to inspection Ears: hearing grossly normal bilaterally Face and sinus: normal facial exam Mouth: oral mucosae normal, moist mucous membranes Teeth and gingiva: dentition normal Eyes General: appearance normal, both eyes and all related structures Eyelids: eyelids normal Conjunctivae: conjunctivae normal Neck Thyroid: other (enlarged) Resp Effort AND Inspection: normal respiratory effort, able to speak in complete sentences, symmetric chest movement Auscultation: Bilateral: Clear to Auscultation Cardio Rate: regular rate Rhythm: regular rhythm Heart Sounds: S1 normal, S2 normal GI Inspection: normal to inspection Auscultation: normal bowel sounds Musc Musculoskeletal: No muscle weakness Skin General: no rashes or lesions noted Neuro General: oriented x3 Cranial Nerves: able to elevate shoulders bilaterally Cognition: normal cognition Speech: speech normal Gait: normal gait Extrem General: normal to inspection Psych Appearance: grossly normal Mood: congruent mood Affect: normal affect Speech and Movement: speech and movement normal ROS Const Constitutional: Positive for fatigue; no anorexia, body ache, chills, fever(s), frequent falls, decreased energy, malaise, night sweats, weakness, weight change, sleep problems, abnormal sleep pattern, change in appetite, other, headache(s), snoring or excessive sweating Eyes Eyes: No blurry vision, change in vision, double vision, discharge, dry eyes, bulging eyes, floaters, visual disturbances, eye pain, light sensitivity, spots in vision, tunnel vision or other ENT ENT: Positive for other (sneezing); no abnormal hearing, ear pain, ear discharge, ear pressure, hearing loss, tinnitus, dizziness/vertigo, balance problems, nosebleed/epistaxis, nasal congestion, nasal obstruction, nose pain, sinus pressure, sinus pain, nasal discharge, post nasal drip, headache(s), facial pain, dental pain, dry mouth, bad breath, hoarseness, lip swelling, mouth lesions, mouth pain, sore throat, tongue swelling, throat swelling, difficulty swallowing or neck pain Resp Respiratory: Positive for shortness of breath; no cough, change in phlegm color, chest congestion, excessive phlegm production, hemoptysis, pain on inspiration, pain with cough, snoring, stridor, wheezing or other Cardio Cardiology: Positive for chest pain at rest, chest pain with exertion and lightheadedness; no leg pain with exertion, excessive sweating, shortness of breath, dyspnea on exertion, generalized swelling, irregular heart rhythm, orthopnea, radiating jaw, neck or arm pain, fast heart rate, slow heart rate, palpitations or other Gastro GI: No abdominal pain, belching, bloating, change in bowel habits, change in stool character, coffee ground emesis, constipation, cramping, diarrhea, heartburn, difficulty swallowing, feeling full early, excessive flatus, incontinent of stools, Vomiting blood/hematemesis, blood in stool, loose stools, Black,tarry stools, nausea/dyspepsia, pain with swallowing, vomiting or other Genitourinary-Female: No difficulty urinating, burning urination, painful urination, urinary incontinence, urinary frequency, urinary urgency, urinary hesitancy, urinary retention, blood in urine, Frequent nighttime urination/ nocturia, post void dribbling, suprapubic fullness, side pain, sexual problems, genital lesions, genital itching, hot flashes, abnormal periods, abnormal vaginal bleeding, absent period, painful periods, light periods, heavy periods, difficulty getting , painful intercourse, pelvic pain, vaginal dryness, vaginal odor, Vaginal Itching or other Musc Musculoskeletal: No abnormal walking, joint pain, back pain, deformity, joint swelling, limited range of motion, loss of height, muscle cramps, muscle weakness, decreased muscle mass, body aches, neck pain, numbness, radiating pain into limb, stiffness, tingling or other Skin Skin: No acne, hair loss, change in hair, nail changes, boil, change in skin color, dry skin, redness, excessive hair growth, yellowing of the skin, lesions, itching, rash, skin pain, skin ulcer, sores, skin swelling, wounds or other Breast Breast: No other Neuro Neurology: No frequent falls, weakness, visual disturbances, abnormal hearing, headache(s), abnormal walking, numbness or tingling Psych Psychiatric: No abnormal sleep pattern, No change in appetite Endo Endocrine: Positive for fatigue and other (sneezing); no excessive sweating Aller/Imm Allergy/Immunologic: No lip swelling, tongue swelling, throat swelling, wheezing or itchy eyes Exam Musc Musculoskeletal: No muscle weakness Assessment AND Plan 1. Hypothyroidism (acquired) E03.9 Plan New patient appointment with Dr. Grossman. Coding Level of Care Code Off vis,est,level 2 Diagnoses Hypothyroidism (acquired) E03.9 05/23/18 4028 <Electronically signed by Lacie HOLT> Date Lacie HOLT Cosigner Signature: Date (if applicable) CC: FREE T3 Collected: 05/03/2018 Status: F Source: [place] 4:16 PM [facility] TYPE CODE TESTS RESULT OUT OF RANGE REFERENCE UNITS LAB L501.62617 2.18-3.98 pg/mL Normal FREE T3 2.5 Performed By: #### L501.18071, L501.9520, L506.0400 #### [facility] [address] [place], [address] THYROID STIM HORMONE Collected: 05/03/2018 Status: F Source: [place] (TSH) 4:16 PM [facility] TYPE CODE TESTS RESULT OUT OF RANGE REFERENCE UNITS LAB L501.9520 0.358-3.74 uIU/mL Normal TSH 1.30 Performed By: #### L501.78585, L501.9520, L506.0400 #### [facility] [address] [place], [address] T4 FREE DIRECT Collected: 05/03/2018 Status: F Source: [place] 4:16 PM [facility] TYPE CODE TESTS RESULT OUT OF RANGE REFERENCE UNITS LAB L506.0400 0.76-1.46 ng/dL Normal T4 FREE 1.00 DIRECT Performed By: #### L501.58651, L501.9520, L506.0400 #### [facility] [address] [place], [address] OFFICE VISIT REPORT Observed: 03/22/2018 Status: F Source: [place] 8:41 AM [facility] [address] [place] [address] OFFICE VISIT Date of Service: 03/11/18 MR#: [id number] Acct: [id number] Patient: SHAHLA RUVALCABA Rep #: [id number] : 1980 Provider: Lacie Lam NP Age/Sex: 37/F Location: [facility] Status: Signed Intake Vital Signs03/11/18 Height 5 ft 7 in 03/11/18 Weight: 180 lb 2 oz 03/11/18 Body Mass Index (BMI) 28.2 03/11/18 Blood Pressure 108/76 03/11/18 Blood Pressure Location Lt popliteal 03/11/18 Blood Pressure Position Sitting Intake Visit Reasons: Thyroid dysfunction Meat Puller Required: No Accompanied by: Self Is patient in pain?: No Allergies Penicillins Adverse Reaction (Verified 03/11/18 08:35) Vomiting Medications verapamil ER 120 mg 24 hr capsule,extended release 120 mg PO QDAY #90 cap 11/23/17 [Rx Confirmed 03/11/18] aspirin 81 mg chewable tablet 81 mg PO QDAY 03/11/18 [History Confirmed 03/11/18] levothyroxine 100 mcg tablet 100 mcg PO QDAY #30 tab 03/11/18 [Rx Confirmed 03/11/18] Is last menstrual period known: No Post menopausal: No Patient : No PFSH Medical History Chronic headaches (Acute) Hypothyroidism (Acute) Premature ventricular contractions (Acute) Family History Mother Hypertension Social History Smoking Status: Former smoker alcohol intake: current substance use type: does not use Questionnaire Depression Screen PHQ-2/9 PHQ-2 Over the last 2 weeks, how often have you been bothered by any of the following problems? 1. Little interest or pleasure in doing things: several days 2. Feeling down, depressed, or hopeless: several days Total score: 2 If score is 2 or greater, continue 3. Trouble falling or staying asleep, or sleeping too much: more than half the days 4. Feeling tired or having little energy: nearly every day 5. Poor appetite or overeating: not at all 6. Feeling bad about yourself - or that you are a failure or have let yourself and your family down: several days 7. Trouble concentrating on things, such as reading the newspaper or watching television: more than half the days 8. Moving or speaking so slowly that other people could have noticed? - Or the opposite - being so fidgety or restless that you have been moving around a lot more than usual: not at all 9. Thoughts that you would be better off or of hurting yourself in some way: not at all Total score: 10 If you checked off any problems, how difficult have these problems made it for you to do your work, take care of things at home, or get along with other people?: very difficult Source: Developed by Drs. Nenita Thacker, Miranda Grimm, Bari Barton and colleagues, with an educational tho from [employer]. Scoring: Total Score Depression Severity Action 1-4 Minimal depression No action needed 5-9 Mild depression Repeat PHQ-9 at follow up 10-14 Moderate depression Make tx plan,consider counseling, fup, prescription HPI HPI Details: SHAHLA RUVALCABA, is a 37 F who presents to the office today for consult of hypothyroidism. States she was diagnosed by her PCP as such and placed on levothyroxine 100mcg as well as cytomel but never felt any better even though her numbers normalized. She remained fatigued and had no energy. She then stopped the medication. She reports she has been off the medication for about one year. She is here today for a urgent visit prior to her scheduled visit due to a TSH finding of 25.80 and free T4 of 0.57. CMP with no findings. 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 She also reports a history of migraines, occ use of alcohol, and takes verapamil for treatment of PVC's. Severity, modifying factors, context, and associated signs and symptoms are as follows: Thyroid pain: No Energy: Reduced Sleep: Not awakened refreshed Temp: Cold intolerance GI: Normal bowel Weight: Flucuates Eyes: No change in vision Memory: unchanged Diaphoresis: Not significant Skin: Dry Hair : sheds Neuro: No numbness, tingling or tremors ROS Const Constitutional: Positive for fatigue and headache(s); no anorexia, body ache, chills, fever(s), frequent falls, decreased energy, malaise, night sweats, weakness, weight change, sleep problems, abnormal sleep pattern, change in appetite, other, snoring or excessive sweating Eyes Eyes: No blurry vision, change in vision, double vision, discharge, dry eyes, bulging eyes, floaters, visual disturbances, eye pain, light sensitivity, spots in vision, tunnel vision or other ENT ENT: Positive for headache(s); no abnormal hearing, ear pain, ear discharge, ear pressure, hearing loss, tinnitus, dizziness/vertigo, balance problems, nosebleed/epistaxis, nasal congestion, nasal obstruction, nose pain, sinus pressure, sinus pain, nasal discharge, post nasal drip, facial pain, dental pain, dry mouth, bad breath, hoarseness, lip swelling, mouth lesions, mouth pain, sore throat, tongue swelling, throat swelling, other, difficulty swallowing or neck pain Resp Respiratory: Positive for wheezing; no cough, change in phlegm color, chest congestion, excessive phlegm production, hemoptysis, pain on inspiration, shortness of breath, pain with cough, snoring, stridor or other Cardio Cardiology: Positive for chest pain at rest, generalized swelling and lightheadedness; no chest pain with exertion, leg pain with exertion, excessive sweating, shortness of breath, dyspnea on exertion, irregular heart rhythm, orthopnea, radiating jaw, neck or arm pain, fast heart rate, slow heart rate, palpitations or other Gastro GI: Positive for nausea/dyspepsia; no abdominal pain, belching, bloating, change in bowel habits, change in stool character, coffee ground emesis, constipation, cramping, diarrhea, heartburn, difficulty swallowing, feeling full early, excessive flatus, incontinent of stools, Vomiting blood/hematemesis, blood in stool, loose stools, Black,tarry stools, pain with swallowing, vomiting or other Genitourinary-Female: No difficulty urinating, burning urination, painful urination, urinary incontinence, urinary frequency, urinary urgency, urinary hesitancy, urinary retention, blood in urine, Frequent nighttime urination/ nocturia, post void dribbling, suprapubic fullness, side pain, sexual problems, genital lesions, genital itching, hot flashes, abnormal periods, abnormal vaginal bleeding, absent period, painful periods, light periods, heavy periods, difficulty getting , painful intercourse, pelvic pain, vaginal dryness, vaginal odor, Vaginal Itching or other Musc Musculoskeletal: Positive for body aches; no abnormal walking, joint pain, back pain, deformity, joint swelling, limited range of motion, loss of height, muscle cramps, muscle weakness, decreased muscle mass, neck pain, numbness, radiating pain into limb, stiffness, tingling or other Skin Skin: No acne, hair loss, change in hair, nail changes, boil, change in skin color, dry skin, redness, excessive hair growth, yellowing of the skin, lesions, itching, rash, skin pain, skin ulcer, sores, skin swelling, wounds or other Breast Breast: No other Neuro Neurology: Positive for headache(s); no frequent falls, weakness, visual disturbances, abnormal hearing, abnormal walking, numbness or tingling Psych Psychiatric: No abnormal sleep pattern, No change in appetite Endo Endocrine: Positive for fatigue; no other or excessive sweating Aller/Imm Allergy/Immunologic: Positive for wheezing; no lip swelling, tongue swelling, throat swelling or itchy eyes Exam Const General: comfortable, anxious Nutritional Appearance: well nourished [facility] Head: normal to inspection Ears: hearing grossly normal bilaterally Face and sinus: normal facial exam Mouth: oral mucosae normal, moist mucous membranes Teeth and gingiva: dentition normal Eyes General: appearance normal, both eyes and all related structures Eyelids: eyelids normal Conjunctivae: conjunctivae normal Neck Thyroid: other (enlarged) Resp Effort AND Inspection: normal respiratory effort, able to speak in complete sentences, symmetric chest movement Auscultation: Bilateral: Clear to Auscultation Cardio Rate: regular rate Rhythm: regular rhythm Heart Sounds: S1 normal, S2 normal GI Inspection: normal to inspection Auscultation: normal bowel sounds Musc Musculoskeletal: No muscle weakness Skin General: no rashes or lesions noted Neuro General: oriented x3 Cranial Nerves: able to elevate shoulders bilaterally Cognition: normal cognition Speech: speech normal Gait: normal gait Extrem General: normal to inspection Psych Appearance: grossly normal Mood: congruent mood Affect: normal affect Speech and Movement: speech and movement normal Assessment AND Plan 1. Thyroid dysfunction E07.9 2. Hypothyroidism (acquired) E03.9 Patient Instructions levothyroxine begin with 50mcg daily Report any side effects such as chest pain, SOB, or any rapid heart rate. Lab in 4 weeks Medications New: Plan Detail Other Medications Discontinued: levofloxacin Discontinued Reason: Pt no longer 500 mg PO DAILY 9 days Shalini Holder taking Coding Level of Care Code Off vis,new,level 2 Diagnoses Thyroid dysfunction E07.9 Hypothyroidism (acquired) E03.9 Time Spent (min) 30 03/22/18 0841 <Electronically signed by Lacie HOLT> Date Lacie HOLT Cosigner Signature: Date (if applicable) CC: FREE T3 Collected: 03/09/2018 Status: F Source: [place] 5:03 PM [facility] [place] CODE TESTS RESULT OUT OF RANGE REFERENCE UNITS LAB L501.75888 2.18-3.98 pg/mL Normal FREE T3 2.7 Performed By: #### L501.87419, L506.0400 #### [facility] [address] [place], [place], [address] T4 FREE DIRECT Collected: 03/09/2018 Status: F Source: [place] 5:03 PM [facility] [place] CODE TESTS RESULT OUT OF REFERENCE UNITS RANGE LAB L506.0400 0.76-1.46 ng/dL Low T4 FREE 0.57 DIRECT Performed By: #### L501.60341, L506.0400 #### [facility] [address] [facility] [place], [address] CBC-COMPLETE BLOOD CNT Collected: 02/26/2018 Status: F Source: [place] NO DIFF 7:28 AM [facility] [place] CODE TESTS RESULT OUT OF RANGE REFERENCE UNITS LAB L100.1000 4.4-11.0 K/mm3 Low WBC 3.8 LAB L100.1200 4.2-5.4 M/mm3 Normal RBC 4.43 LAB L100.1300 12.0-15.0 g/dl Normal HGB 13.3 LAB L100.1400 37-47 % Normal HCT 40.5 LAB L100.1500 81-99 fL Normal MCV 91.4 LAB L100.1600 27.0-32.0 pg Normal MCH 30.0 LAB L100.1700 32-36 g/gl Normal MCHC 32.8 LAB L100.1810 11.6-14.6 % Normal RDW CV 12.7 LAB L100.1820 35.1-43.9 fl Normal RDW SD 41.9 LAB L100.1900 150-450 K/mm3 Normal PLT 262 LAB L100.2000 6.2-12.0 fl Normal MPV 11.1 Performed By: #### L100.0500, L101.9900 #### [facility] [address] [place], [address] ERYTHROCYTE SED RATE Collected: 02/26/2018 Status: F Source: [place] 7:28 AM [facility] [place] CODE TESTS RESULT OUT OF RANGE REFERENCE UNITS LAB L102.0000 0-20 mm/hr Normal SED RATE 4 Performed By: #### L100.0500, L101.9900 #### [facility] [address] [place], [place], [address] COMPREHENSIVE METABOLIC Collected: 02/26/2018 Status: F Source: [facility] 7:28 AM [facility] [place] CODE TESTS RESULT OUT OF RANGE REFERENCE UNITS LAB L501.0100 74-106 mg/dL Normal GLU 83 Result Comment: Please note revised GLUCOSE reference range effective 2017. LAB L501.1000 7-18 mg/dL Normal BUN 11 LAB L501.1100 0.55-1.02 mg/dL Normal CREAT,SERUM 0.68 Result Comment: The validity of the calculated GFR AND GFRAA in patients over 70 years has not been determined. Clinical correlation is essential. LAB L501.1110 >60 mL/min Normal EST GFR 102 Result Comment: Non- GFR Calc LAB L501.1115 >60 mL/min Normal EST GFR - AA 123 Result Comment: GFR Calc LAB L501.1300 10-20 RATIO Normal BUN/CRE 16.1 LAB L501.1500 6.4-8.2 g/dL T Normal PROT 7.6 LAB L501.1800 3.2-5.0 g/dL Normal ALB 4.1 LAB L501.1950 2.2-4.2 g/dL Normal GLOB 3.5 LAB L501.2000 0.9-2.4 RATIO Normal A/G 1.2 LAB L501.2200 8.5-10.1 mg/dL CA Normal 9.4 LAB L501.4100 15-37 U/L Low AST 12 LAB L501.4305 45-117 U/L Normal ALK P 62 LAB L501.4405 13-56 U/L Normal ALT 24 LAB L501.4600 0.20-1.00 mg/dL T Normal BILI 0.30 LAB L501.5300 136-145 mmol/L NA Normal 142 LAB L501.5600 3.5-5.1 mmol/L K Normal 4.1 LAB L501.5900 98-107 mmol/L CL Normal 105 LAB L501.6100 21.0-32.0 mmol/L Normal CO2 29.0 LAB L501.6200 5-15 Normal GAP 8 Performed By: #### L500.4050, L501.6710, L501.9520 #### [facility] [address] [place], [address] CRP Collected: 02/26/2018 Status: F Source: [place] 7:28 AM [facility] [place] CODE TESTS RESULT OUT OF RANGE REFERENCE UNITS LAB L501.6710 0.0-3.0 mg/L Normal < 2.90 C-REACTIVE PROT Result Comment: C-Reactive Protein (CRP) provides useful information for the diagnosis, therapy and monitoring of inflammatory processes and associated diseases. For the evaluation of Relative Risk for Cardiovascular Disease, a High Sensitivity CRP (HSCRP) should be ordered. Performed By: #### L500.4050, L501.6710, L501.9520 #### [facility] [address] [facility] [place], [place], [address] THYROID STIM HORMONE Collected: 02/26/2018 Status: F Source: [place] (TSH) 7:28 AM [facility] [place] CODE TESTS RESULT OUT OF RANGE REFERENCE UNITS LAB L501.9520 0.358-3.74 uIU/mL High TSH 25.80 Performed By: #### L500.4050, L501.6710, L501.9520 #### [facility] [address] [place], [place], [address] ALLERGIES ALLERGIES DATE TYPE / CODE NAME / CODE REACTION SEVERITY SOURCE 10/16/2018 Drug Penicillins/ Vomiting SV [facility] Allergy/4160 [id number]([facility] [address](SNOMED XNORM) Repository CT) ENCOUNTERS ENCOUNTERS ADMIT/DISCHARGE ACCOUNT NUMBER ADMITTING ENCOUNTER LOCATION SOURCE CLASS 10/16/2018/10/16/20 [id number] Ambulatory BMSBuilding: [place] 18 BMS.[facility] Hospital Repository 10/15/2018/10/15/20 [id number] Ambulatory BMSBuilding: [place] 18 BMS.[facility] Hospital Repository 10/15/2018 [id number] Ambulatory [facility] Hospital ding:LABSPEC Repository 09/09/2018 [id number] Ambulatory [facility] ding:LABSPEC Repository 09/06/2018 [id number] Ambulatory BBuilding:[facility] Repository 09/06/2018 [id number] Ambulatory [facility] Hospital ding:US Repository 09/06/2018/09/06/20 [id number] Ambulatory RICHARD [facility] [address] [place] [address] ding:[facility] Repository 08/20/2018 [id number] Ambulatory BMSBuilding: [place] BMS.CF.[facility] Repository 08/20/2018 [id number] Ambulatory [facility] ding:[facility] Repository 08/12/2018/08/12/20 [id number] Ambulatory BMSBuilding: [place] 18 BMS.[facility] Repository 07/28/2018 [id number] Ambulatory BMSBuilding: [place] BMS.[facility] Repository 2018 [id number] [facility] ding:NM Repository 07/20/2018 [id number] Ambulatory [facility] ding:NM Repository 07/19/2018 [id number] Ambulatory [facility] ding:LAB Repository 07/16/2018/07/16/20 [id number] Ambulatory BMSBuilding: [place] 18 BMS.[facility] Repository 07/15/2018/07/16/20 [id number] Emergency [place] Hospital ding:ED Repository 06/28/2018 [id number] [facility] ding:OMD Repository 06/28/2018 [id number] Ambulatory BMSBuilding: [place] BMS.CF.[facility] Repository 06/08/2018 [id number] [facility]ulatory [facility] ding:LAB Repository 06/06/2018/06/06/20 [id number] Ambulatory BMSBuilding: [place] 18 BMS.[facility] Repository 05/29/2018 [id number] [facility]ulatory [facility] ding:LAB.FUT Repository URE 05/26/2018 [id number] [facility]ulatory [facility] ding:US Repository 05/25/2018 [id number] [facility]ulatory [facility] ding:LAB Repository 05/12/2018/05/12/20 [id number] Ambulatory BMSBuilding: [place] 18 BMS.[facility] Repository 05/03/2018 [id number] [facility]ulatory [facility] ding:LAB Repository 04/21/2018 [id number] Ambulatory BMSBuilding: [place] BMS.[facility] Repository 03/11/2018/03/11/20 [id number] Ambulatory BMSBuilding: [place] 18 BMS.[facility] Repository 03/09/2018 [id number] [facility]ulatory [facility] ding:LAB Repository 02/26/2018 [id number] [facility]ulatory [facility] ding:LAB Repository PAYERS PAYERS ENCOUNTER GUARANTOR PAYER SUBSCRIBER SOURCE 10/16/2018 LONNIE Chaudhari Primary LONNIE Eduardo [id number] Insurance:ANTHEMPolic MARCUMDOB: [facility] LIBERTY y Number: [id number] [id number] Repository [address]Mks: (330) Date:5044-33-58XU [phone] ([facility] [address], [place] [address]AH: 10/16/2018 Secondary NOT GIVENUNK [place] Insurance:SELF PAY [facility] Number: Effective Repository Date:2018-10-16 10/15/2018 LONNIE Chaudhari Primary LONNIE Eduardo [id number] [facility]: [facility] y Number: [id number], [place] [id number] Repository [address]Emm: (330) Date:2430-50-04GD [phone] () [address]14[address]GOGPIMU, [place] [address]AV: 10/15/2018 Secondary NOT GIVENUNK [place] Insurance:SELF PAY [facility] Number: Effective Repository Date:2018-10-15 10/15/2018 LONNIE Chaudhari Primary LONNIE Chaudhari [place] [id number] Insurance:ANTHEMPolic MARCUMDOB: Community LIBERTY y Number: [id number], [place] [id number] Repository [address]Nrd: (330) Date:7381-48-16CV [phone] () [place]68[address]QVCBGCX, [place] [address]FI: 10/15/2018 Secondary NOT GIVENUNK [place] Insurance:SELF PAY [facility] Number: Effective Repository Date:2018-10-15 09/09/2018 LONNIE Chaudhari Primary LONNIE Chaudhari [place] [id number] Insurance:ANTHEMPolic MARCUMDOB: Community LIBERTY y Number: [id number], [place] [id number] Repository [address]Brd: (330) Date:6354-10-17LW [phone] () 7403[address]NZPGLPO, [place] [address]WM: 09/09/2018 Secondary NOT GIVENUNK [place] Insurance:SELF PAY [facility] Number: Effective Repository Date:2018-09-09 09/06/2018 [facility]:ANTHEM BLUE MARCUMDOB: [facility] W [address] IN[employer] [id number] Repository LIBERTY Number: [place] [id number] [place], [place] [address]Xrz: (330) Date:2018-09-06 [id number]: () 1963-43-31Sgpm [phone] Name:O DESTINEE ()Tel: (000) [phone] Kerns 000-0000 () [address]UG: 09/06/2018 LONNIE J Primary LONNIE J [place] [id number] Insurance:ANTHEMPolic MARCUMDOB: Community LIBERTY y Number: [id number], [place] [id number] Repository [address]Pdv: (611) Date:3714-08-72FP [phone] () [place]17[address]KSBAUAT, [place] [address]CM: 09/06/2018 Secondary NOT GIVENUNK [place] Insurance:SELF PAY [facility] Number: Effective Repository Date:2018-09-06 09/06/2018 SHAHLA K Primary [facility] MARCUMDOB: Insurance:ANTHEM BLUE MARCUMDOB: [facility] W [facility] [facility] [id number] Repository LIBERTY Number: [place], [place] [id number] [place], [place] [address]Sga: (330) Date:2018-09-06 24397Qis: () 4360-70-70Gwoc [phone] Name:CHAVA FELIPE ()Tel: [phone] Kerns 000-0000 (WP) [address]IF: 08/20/2018 LONNIE J Primary LONNIE J [place] [id number] Insurance:ANTHEMPolic MARCUMDOB: [facility] LIBERTY y Number: [id number], [place] [id number] Repository 10[address]Tyf: (075) Date:3422-14-04QW [phone] () 417298QAEQVIV, [place] [address]XM: 08/20/2018 Secondary NOT GIVENUNK [place] Insurance:SELF PAY [facility] Number: Effective Repository Date:2018-08-20 08/20/2018 LONNIE J Primary LONNIE J [place] [id number] Insurance:ANTHEMPolic MARCUMDOB: [facility] LIBERTY y Number: [id number], [place] [id number] Repository [address]Gff: (330) Date:4710-76-21NJ [phone] () [address]894[address]OVJEACH, [place] [address]ME: 08/20/2018 Secondary NOT GIVENUNK [place] Insurance:SELF PAY [facility] Number: Effective Repository Date:2018-07-19 08/12/2018 LONNIE J Primary LONNIE J [place] [id number] Insurance:ANTHEMPolic MARCUMDOB: Community LIBERTY y Number: [id number], [place] [id number] Repository [address]Uze: (330) Date:9741-34-21LA [phone] () 2980[address]REZPZVO, [place] [address]GO: 08/12/2018 Secondary NOT GIVENUNK [place] Insurance:SELF PAY [facility] Number: Effective Repository Date:2018-08-06 07/28/2018 LONNIE J Primary LONNIE J [place] [id number] Insurance:ANTHEMPolic MARCUMDOB: Community LIBERTY y Number: [id number], [place] [id number] Repository [address]Wba: (330) Date:3895-25-20OM [phone] () 212732CTJXADD, [place] [address]RE: 07/28/2018 Secondary NOT GIVENUNK [place] Insurance:SELF PAY [facility] Number: Effective Repository Date:2017-10-15 2018 LONNIE J Primary LONNIE J [place] [id number] Insurance:ANTHEMPolic MARCUMDOB: Community LIBERTY y Number: [id number], [place] [id number] Repository [address]Anl: (330) Date:0654-14-60LZ [phone] () 673003NZPNDJL, [place] [address]BA: 2018 Secondary NOT GIVENUNK [place] Insurance:SELF PAY [facility] Number: Effective Repository Date:2018-07-19 07/20/2018 LONNIE J Primary LONNIE [place] [id number] Insurance:ANTHEMPolic MARCUMDOB: Community LIBERTY y Number: [id number], [place] [id number] Repository [address]Tkm: (330) Date:7164-94-60CV [phone] () 450435HYRQNPK, [place] [address]HY: 07/20/2018 Secondary NOT GIVENUNK [place] Insurance:SELF PAY [facility] Number: Effective Repository Date:2018-06-08 07/19/2018 LONNIE J Primary LONNIE J [place] [id number] [address] Insurance:ANTHEMPolic MARCUMDOB: Community LIBERTY y Number: [id number], [place] [id number] Repository [address]Qmv: (330) Date:4256-47-62TX [phone] () 233460CFZWCGM, [place] [address]XV: 07/19/2018 Secondary NOT GIVENUNK [place] Insurance:SELF PAY [facility] Number: Effective Repository Date:2018-07-19 07/16/2018 LONNIE J Primary LONNIE Fara Eduardo [id number] Insurance:ANTHEMPolic MARCUMDOB: Community LIBERTY y Number: [id number], [place] [id number] Repository [address]Nnq: (330) Date:5383-55-85UR [phone] () 229102YOAWFLB, [place] [address]OR: 07/16/2018 Secondary NOT GIVENUNK [place] Insurance:SELF PAY [facility] Number: Effective Repository Date:2018-07-16 07/15/2018 LONNIE J Primary LONNIE Fara Eduardo [id number] Insurance:ANTHEMPolic MARCUMDOB: Community LIBERTY y Number: [id number], [place] [id number] Repository [address]Xtb: (330) Date:9243-25-30FY [phone] () [id number] [place] [address]HY: 07/15/2018 Secondary NOT GIVENUNK [place] Insurance:SELF PAY [facility] Number: Effective Repository Date:2018-07-15 06/28/2018 LONNIE J Primary LONNIE J [place] [id number] Insurance:ANTHEMPolic MARCUMDOB: Community LIBERTY y Number: [id number], [place] [id number] Repository [address]Aea: (330) Date:2004-07-55GJ [phone] () [id number] [place] [address]KR: 06/28/2018 Secondary NOT GIVENUNK [place] Insurance:SELF PAY [facility] Number: Effective Repository Date:2018-06-15 06/28/2018 LONNIE J Primary LONNIE J [place] [id number] Insurance:ANTHEMPolic MARCUMDOB: Community LIBERTY y Number: [id number], [place] [id number] Repository [address]Jjy: 330) Date:2978-23-12WC [phone] () 444555XLKPZVO [place] [address]TF: 06/28/2018 Secondary NOT GIVENUNK [place] Insurance:SELF PAY [facility] Number: Effective Repository Date:2018-06-28 06/08/2018 LONNIE J Primary LONNIE J [place] [id number] Insurance:ANTHEMPolic MARCUMDOB: [place] y Number: [id number], [place] [id number] Repository [address]Upw: 330) Date:4700-55-10DR [phone] () 073287DPCEMWL, [place] [address]IJ: 06/08/2018 Secondary NOT GIVENUNK [place] Insurance:SELF PAY [facility] Number: Effective Repository Date:2018-06-08 06/06/2018 LONNIE J Primary LONNIE J [place] [id number] Insurance:ANTHEMPolic MARCUMDOB: Community [place] y Number: [id number], [place] [id number] Repository [address]Bhi: (330) Date:8427-53-79HL [phone] () 053285UXACLSRSTEVE KERNS [address]BA: 06/06/2018 Secondary NOT GIVENUNK [place] Insurance:SELF PAY [facility] Number: Effective Repository Date:2018-06-06 05/29/2018 LONNIE J Primary LONNIE J [place] [id number] Insurance:ANTHEMPolic MARCUMDOB: Community LIBERTY y Number: [id number], [place] [id number] Repository [address]Yak: (330) Date:8682-35-34KH [phone] () 574249YRNSBYGSTEVE KERNS [address]BU: 05/29/2018 Secondary NOT GIVENUNK [place] Insurance:SELF PAY [facility] Number: Effective Repository Date:2018-05-25 05/26/2018 LONNIE J Primary LONNIE J [place] [id number] Insurance:ANTHEMPolic MARCUMDOB: Community [place] y Number: [id number], [place] [id number] Repository [address]Iwz: (330) Date:4881-82-40JO [phone] () 307901JULFKKQ, [place] [address]WP: 05/26/2018 Secondary NOT GIVENUNK [place] Insurance:SELF PAY [facility] Number: Effective Repository Date:2018-05-25 05/25/2018 LONNIE J Primary LONNIE J [place] [id number] Insurance:ANTHEMPolic MARCUMDOB: Community [place] y Number: [id number], [place] [id number] Repository [address]Afw: (330) Date:4878-59-70JJ [phone] () 969573RVBJAYH, [place] [address]AP: 05/25/2018 Secondary NOT GIVENUNK [place] Insurance:SELF PAY [facility] Number: Effective Repository Date:2018-05-25 05/12/2018 LONNIE J Primary LONNIE Fara [place] [id number] Insurance:ANTHEMPolic MARCUMDOB: Community [place] y Number: [id number], [place] [id number] Repository [address]Bes: (330) Date:4946-10-59WJ [phone] () 663513MXSXFRU, [place] [address]TI: 05/12/2018 Secondary NOT GIVENUNK [place] Insurance:SELF PAY [facility] Number: Effective Repository Date:2018-05-12 05/03/2018 LONNIE J Primary LONNIE Fara BackAlesha [id number] Insurance:ANTHEMPolic MARCUMDOB: Community [place] y Number: [id number], [place] [id number] Repository [address]Zqv: (330) Date:9792-33-66WT [phone] () 104376VYWWXIR, [place] [address]OO: 05/03/2018 Secondary NOT GIVENUNK [place] Insurance:SELF PAY [facility] Number: Effective Repository Date:2018-05-03 04/21/2018 LONNIE J Primary L[place]IE [place] [id number] Insurance:ANTHEMPolic MARCUMDOB: Community [place] y Number: [id number], [place] [id number] Repository 266[address]Lkg: (330) Date:4134-52-59CX [phone] () 000152YRNBMMI, [place] [address]KN: 04/21/2018 Secondary NOT GIVENUNK [place] Insurance:SELF PAY [facility] Number: Effective Repository Date:2018-03-11 03/11/2018 LONNIE J Primary LONNIE Fara Eduardo [id number] Insurance:ANTHEMPolic MARCUMDOB: Community [place] y Number: [id number], [place] [id number] Repository [address]Lck: (330) Date:7486-47-88VJ [phone] () 729006VQTEWLT, [place] [address]RH: 03/11/2018 Secondary NOT GIVENUNK [place] Insurance:SELF PAY [facility] Number: Effective Repository Date:2018-03-11 03/09/2018 LONNIE Chaudhari Primary LONNIE Chaudhari [place] [id number] Insurance:ANTHEMPolic MARCUMDOB: Community [place] y Number: [id number], [place] [id number] Repository [address]Ewg: (330) Date:8377-98-56IC [phone] () 910859ZZVXPLE, [place] [address]IB: 03/09/2018 Secondary NOT GIVENUNK [place] Insurance:SELF PAY [facility] Number: Effective Repository Date:2018-03-09 02/26/2018 LONNIE Fara Primary LONNIE Fara Eduardo [id number] Insurance:ANTHEMPolic MARCUMDOB: [place] y Number: [id number], [place] [id number] Repository [address]Hml: (330) Date:8831-41-39PM [phone] () 195215MUSMQZC, [place] [address]MQ: 02/26/2018 Secondary NOT GIVENUNK [place] Insurance:SELF PAY [facility] Number: Effective Repository Date:2018-02-26
== END ==
PROVIDERS: Referring Provider Physician Assistant Surgical; Visit Provider Physician Assistant Surgical
DX: J02.9 Acute pharyngitis, unspecified (principal)
CPT/HCPCS: 87081

== ENCOUNTER → 2018-11-30 14:10 | Outpatient (CLI) | payer BC, SELFPAY ==
[2018-10-16 11:12] VITALS: BMI 28.4
[2018-11-30 15:17] LABS: Absolute Lymphocyte Count 1.64 X10^3/ul (0.83-4.51); Absolute Neutrophil Count 3.3 X10^3/uL (2.0-7.7); Basophil# 0.02 X10^3/uL; Basophil% 0.4 % (0-1); Eosinophil# 0.09 X10^3/uL; Eosinophils% 1.7 % (0-5); Hematocrit 40.3 % (37-47); Hemoglobin 12.6 g/dl (12.0-15.0); Lymphocyte # 1.64 X10^3/ul (4.0); Lymphocyte % 30.5 % (19-41); Mean Corp Hgb Conc 31.3 g/gl (32-36); Mean Corpuscular Hgb 28.6 pg (27.0-32.0); Mean Corpuscular Volume 91.4 fL (81-99); Mean Platelet Vol. 10.9 fl (6.2-12.0); Monocyte# 0.28 X10^3/uL; Monocyte% 5.2 % (0-10); Neutrophil # 3.33 X10^3/uL (2.7-7.7); Platelet Count 268 K/mm3 (150-450); RBC Distribution Width CV 12.9 % (11.6-14.6); RBC Distribution Width SD 43.2 fl (35.1-43.9); Red Blood Count 4.41 M/mm3 (4.2-5.4); White Blood Count 5.4 K/mm3 (4.4-11.0)
[2018-11-30 15:19] LABS: POSITIVE COUNT NO; POSITIVE DIFFERENTIAL NO; POSITIVE MORPHOLOGY NO
[2018-11-30 16:01] LABS: Vitamin B12 494 pg/mL (211-911); Vitamin D,25 Hydroxy 19.5 ng/mL (29.95-100.01)
[2018-11-30 16:43] LABS: Ferritin 10 ng/mL (8-252); T4 Free Direct 0.89 ng/dL (0.76-1.46); Thyroid Stim Hormone (TSH) 3.03 uIU/mL (0.358-3.74)
[2018-12-02 15:12] LABS: Thyroglobulin Antibody 2.2 IU/mL (0.0-0.9); Thyroid Peroxidase AB 107 IU/mL (0-34)
== END ==
PROVIDERS: Referring Provider Internal Medicine Endocrinology, Diabetes & Metabolism; Visit Provider Internal Medicine Endocrinology, Diabetes & Metabolism
DX: E03.8 Other specified hypothyroidism (principal); E55.9 Vitamin D deficiency, unspecified; R53.83 Other fatigue
CPT/HCPCS: 36415; 82306; 82607; 82728; 82746; 84439; 84443; 85025; 86376; 86800

== ENCOUNTER 2019-02-06 17:02 | Emergency (ER) | payer BC, SELFPAY ==
[2018-10-16 11:12] VITALS: BMI 28.4
[2019-02-06 17:02] VITALS: BP 126/95; PULSE 86; RESP 20; TEMP 36.7; O2SAT 100; BMI 27.8
[2019-02-06 17:57] LABS: Color, Urine Yellow (Yellow); Glucose, Dipstick Normal (Normal); Ketone-Dipstick Negative (Negative); Leukocyte Esterase-Dipstick 500 /ul (Negative); Mucous, Urine 0 SEEN /hpf (<or=2+); Nitrite-Dipstick Negative (Negative); Occult Blood-Urine 25 /ul (Negative); Protein-Dipstick Negative (Negative); Specific Gravity, Urine 1.015 (1.002-1.030); Urine Bilirubin Dipstick Negative (Negative); Urine Clarity Cloudy (Clear); Urine Urobilinogen Normal (Normal)
[2019-02-06] MEDS: Morphine 4 MG/ML Syringe IV (17:58)
--- NOTE | 2019-02-06 17:58 | ED.DCSUM_ITS ---
- ER Visit Summary Date of Service: 02/06/19 Chief Complaint: Back pain History of Present Illness: The patient is a 38 F presenting with left lower back pain. She states this started 1 hour ago. She denies any injury. She has nausea with no vomiting. She has urinary frequency. Denies fever. She states she has never had symptoms like this in the past. Pain is in her left flank. Denies other complaints. Physical Examination: Vitals are stable. Patient is afebrile. Alert no acute distress. HEENT exam is unremarkable. Neck is supple. Lungs are clear and equal bilaterally. Heart is regular rate and rhythm. Abdomen is soft nontender nondistended. Back: Left CVA tenderness Extremities are unremarkable. Skin is warm and dry. No focal neurologic deficit. Remainder of exam is unremarkable. Emergency Department Course and Treatment: Patient given morphine, Zofran IV. Urinalysis shows 10-25 white blood cells, 0-5 red blood cells, 5-10 epithelial cells. HCG negative. Patient states that she always has white cells in her urine. Urine culture was sent. CT abdomen pelvis without contrast was obtained and shows cannot exclude a left UVJ calculus with minimal hydronephrosis. Tiny nonobstructing right lower pole stone. Hepatomegaly. Moderate diffuse fecal retention. Patient continues to have pain and was given Dilaudid. She was then given Toradol with improvement of her symptoms. On repeat evaluation, she is resting comfortably. She is given prescriptions for [place], Zofran, Keflex. Advised to follow-up with urology. Advised return to ED if worsening complaints. Disposition: Discharge home Impression: Urolithiasis This note was generated with [employer] dictation software. It may contain incorrect words, spelling, and punctuation that were not noted in review of the chart prior to signing ED Disposition - Plan for ED Patient: Instructions: ED Stone Renal W Colic Prescriptions: Hydrocodone Bitart/Apap 5-325 [[place] 5MG-325MG] 1 tablet PO Q6H PRN PRN 3 Days #10 tablet PRN Reason: Pain Ondansetron [Zofran Odt] 4 mg PO Q8H PRN PRN #10 tablet PRN Reason: Nausea Cephalexin [Keflex] 500 mg PO Q6 #40 capsule Referrals: Ezra Leahy MD [STAFF PHYSICIAN] - Ang Whyte MD [Primary Care Provider] -
[2019-02-06] MEDS: Ondansetron 4 MG/2 ML Vial IV (17:59)
[2019-02-06 18:03] LABS: Internal QC Validated? YES +Cl - CLEAR BKGD; Pregnancy, Urine Negative Negative
[2019-02-06 18:07] LABS: Red Blood Cells-Urine 0-5 SEEN /hpf (0-5)
[2019-02-06 18:08] LABS: Squamous Epithelial Cells - UA 5-10 SEEN /hpf (5-10); White Blood Cells 10-25 SEEN /hpf (0-5)
[2019-02-06 18:13] LABS: Bacteria 1+ /hpf (None Seen)
[2019-02-06 18:14] LABS: Amorphous Sediment 2+
--- NOTE | 2019-02-06 18:20 | CT_ITS ---
STUDY: CT ABDOMEN AND PELVIS WITHOUT CONTRAST REASON FOR EXAM: Female, 38 years old. Left lower back pain. RADIATION DOSAGE (If Supplied By Facility): CTDIvol = ( 9.63 ) mGy, DLP = ( 483.83 ) mGycm TECHNIQUE: Transaxial images were obtained from the dome of the diaphragm to the symphysis pubis without oral contrast, and without intravenous contrast. Sagittal and coronal images were reconstructed. Individualized dose optimization techniques were used for this CT. COMPARISON: None. FINDINGS: The visualized lung bases are unremarkable. The visualized portions of the heart are within normal limits. There is hepatomegaly with diffuse hepatic enlargement. Normal gallbladder and extrahepatic biliary system. Normal spleen. Normal pancreas. Normal bilateral adrenal glands. Right kidney has a 2 mm nonobstructing stone in the lower pole and is otherwise normal. Left kidney shows minimal hydronephrosis. The left ureter cannot be followed, but there is a 3.6 mm calcification in the left lower pelvis which could be a left UVJ stone. This is seen on axial image 154 and coronal image 46. Evaluation of the GI tract is limited by absence of oral contrast. Cannot exclude stomach wall thickening. No dilated loops of bowel or evidence for obstruction. Cannot exclude segmental thickening of the nava of the small or large bowel. Cannot exclude enteritis or colitis. Moderate diffuse fecal retention. Appendix within normal limits. Normal abdominal aorta. Normal inferior vena cava. Normal retroperitoneum. Empty urinary bladder. Normal visualized uterus. Normal abdominal wall. Normal osseous structures. CT/Abdomen/Pelvis without Cont IMPRESSION: Cannot exclude a left UVJ calculus with minimal hydronephrosis. Tiny nonobstructing right lower pole stone. Hepatomegaly. Moderate diffuse fecal retention. Electronically Signed: Sandeep Qureshi MD at 18:55 EDT , Service support ,
[2019-02-06] MEDS: HYDROmorphone 1 MG/ML Syringe IV (19:38)
[2019-02-06] MEDS: Ketorolac 30 MG/ML Syringe IV (20:40)
[2019-02-06 20:41] VITALS: BP 106/66; PULSE 62; RESP 16; O2SAT 100
--- NOTE | 2019-02-06 22:14 | ED.DEP ---
ED Disposition - Plan for ED Patient: Instructions: ED Stone Renal W Colic Prescriptions: Hydrocodone Bitart/Apap 5-325 [[place] 5MG-325MG] 1 tablet PO Q6H PRN PRN 3 Days #10 tablet PRN Reason: Pain Ondansetron [Zofran Odt] 4 mg PO Q8H PRN PRN #10 tablet PRN Reason: Nausea Cephalexin [Keflex] 500 mg PO Q6 #40 capsule Referrals: Ang Whyte MD [Primary Care Provider] -
--- NOTE | 2019-02-06 22:16 | ED.DEP ---
ED Disposition - Plan for ED Patient: Instructions: ED Stone Renal W Colic Prescriptions: Hydrocodone Bitart/Apap 5-325 [[place] 5MG-325MG] 1 tablet PO Q6H PRN PRN 3 Days #10 tablet PRN Reason: Pain Ondansetron [Zofran Odt] 4 mg PO Q8H PRN PRN #10 tablet PRN Reason: Nausea Cephalexin [Keflex] 500 mg PO Q6 #40 capsule Referrals: Ang Whyte MD [Primary Care Provider] - Ezra Leahy MD [STAFF PHYSICIAN] -
[2019-02-06] MEDS: proMETHazine 25 MG/ML Syringe 6.25 MG IV (23:24)
[2019-02-06 23:33] VITALS: BP 107/82; PULSE 86; RESP 16; O2SAT 98
== END 2019-02-06 23:38 | disposition home or self-care (01) ==
LOC: ED 17:56
PROVIDERS: Emergency Provider Emergency Medicine
DX: N13.2 Hydronephrosis with renal and ureteral calculous obstruction (principal); E07.9 Disorder of thyroid, unspecified
CPT/HCPCS: 74176; 81001; 81025; 87086; 87088; 96374; 96375; 99283; A4216; J2405

== ENCOUNTER 2019-02-09 11:53 | Day surgery (SDC) | payer BC, SELFPAY ==
[2019-02-09 12:25] VITALS: BP 109/71; PULSE 78; RESP 18; TEMP 37.2; O2SAT 99; BMI 27.1
[2019-02-09 12:26] LABS: Internal QC Validated? YES +Cl - CLEAR BKGD; Pregnancy, Urine Negative Negative
[2019-02-09] MEDS: Cefazolin 2 GM in 0.9% Normal Saline 100 ML IV (15:22)
--- NOTE | 2019-02-09 15:24 | DCINST_ITS ---
Discharge Diet: Light diet - advance as tolerated Discharge Activity: Return to Normal Activity Call your doctor if your incision/area has: Continuous Slow Oozing, Sudden Increased Bleeding, Increased Pain/ Swelling, Increased Redness, Foul Smelling Discharge, Swelling at the incision site Instructions: Treating Kidney Stones: Ureteroscopic Stone Removal, Ureteral Stents Allergies/Adverse Reactions: Allergies Penicillins Adverse Reaction (Severe, Verified 02/08/19 08:02) Vomiting Medications to take at Discharge levothyroxine 100 mcg tablet 100 mcg PO QDAY #30 tab 03/11/18 Cephalexin [Keflex] 500 mg PO Q6 #40 capsule 02/06/19 Ondansetron [Zofran Odt] 4 mg PO Q8H PRN PRN #10 tablet 02/06/19 Primary Care Physician: Ang Whyte MD [Primary Care Provider] - Test Results: Test results from this visit will be discussed in further detail at your follow- up appointment, if applicable. Please Follow Up With: Ezra Leahy MD When: please call to make an appointment.
[2019-02-09] MEDS: Lidocaine Jelly 2% 20 ML Syringe (URO-JET) 20 APPLIC (15:35)
--- NOTE | 2019-02-09 15:46 | OP.PCM_ITS ---
Report of Operation Date of Procedure: 02/09/19 Pre-Operative Diagnosis: 38-year-old female with intermittent pelvic pain and bladder pain who is having microscopic hematuria CAT scan was done demonstrated some mild left hydronephrosis possible stone, very difficult to tell on CAT scan there was a fragment that I could see that could have been a stone Post-Operative Diagnosis: Same no stone seen Surgery/Procedure Performed:: Cystoscopy, balloon dilation of the left ureter, left ureteroscopy, Description of Surgical Findings:: 38-year-old female I saw in the office she is been having some abdominal pain discomfort also microscopic hematuria CAT scan was done this and there was a mild left hydronephrosis possible stone in the distal ureter on CAT scan reviewed there was a little small fragment that could be in the distal ureter talk about options of management watching it or proceeding with ureteroscopy she wanted to find out this is causing all her pain or discomfort so we can proceed with ureteroscopy and for further investigation. 38-year-old female taken back to the operating room the smooth induction of anesthesia she was placed in dorsolithotomy position went into the bladder with a 21 Sinhala rigid cystourethroscope the entire length of the urethra was normal inside the bladder was completely normal trigones normal left and right ureter orifice normal position were both effluxing clear at this point mass in the suspicion was fairly low she may have a stone there was no inflammation cannulated the left ureteral orifice advanced a wire up and then over the wire I advanced a 12 Sinhala balloon dilator balloon dilated the distal ureter just a little bit just enough to then perform rigid ureteroscopy went up the ureter after going up several centimeters there was no stone along the course of the ureter I then pulled out the ureteroscope drain the bladder remove the wire the ureteroscope with was removed the urine was effluxing normally from the left ureter so I decided not to leave a stent and then I placed lidocaine jelly into the bladder and the patient's anesthetic is currently being reversed. Type of Anesthesia:: General Drains: none - Admit VTE Documentation VTE Present on Admission: No VTE Mechan Device Prophylaxis: SCD's
[2019-02-09 15:53] VITALS: BP 104/67; BP 109/71; PULSE 78; RESP 16; TEMP 37; O2SAT 99
[2019-02-09 16:00] VITALS: BP 107/74; BP 109/71; PULSE 66; RESP 18; O2SAT 99
[2019-02-09] MEDS: Ketorolac 30 MG/ML Syringe IV (16:00)
[2019-02-09 16:10] VITALS: BP 109/71; BP 112/73; PULSE 65; RESP 18; O2SAT 100
[2019-02-09 16:15] VITALS: BP 109/71; BP 109/77; PULSE 65; RESP 18; TEMP 37.1; O2SAT 100
[2019-02-09 16:32] VITALS: BP 109/71
--- NOTE | 2019-02-09 16:34 | SUR.PHASEII ---
Addendum entered by Idalmis Warren 02/09/19 16:36: EDUCATED THAT PATIENT RECEIVED IV TORADOL AT 1600, MAY TAKE NEXT DOSE IBUPROFEN, IF NEEDED, AFTER 2200 FOR PAIN. Original Note: PATIENT VERY UPSET, VERBALIZING HER DISPLEASURE AT LACK OF FINDINGS FROM THE PROCEDURE, CURSING. DR RYDER NOTIFIED THAT PATIENT WANTS TO LEAVE NOW, GAVE ORDER TO D/C HOME WITHOUT VOIDING PER JESSICA CARTER RN. ON ARRIVAL TO ROOM, PATIENT HAD JUST PULLED OUT HER OWN IV. DRESSING PLACED. REVIEWED D/C INSTRUCTIONS WITH PATIENT AND . PATIENT REFUSES DRINK, SNACK, WHEELCHAIR ASSISTANCE TO ENTRANCE.
== END 2019-02-09 16:35 | disposition home or self-care (01) ==
LOC: SDC 11:57 → AC 11:58
PROVIDERS: Anesthesiology; Referring Provider Urology; Visit Provider Urology
PROC: 0TJ98ZZ Inspection of Ureter, Via Natural or Artificial Opening Endoscopic (ICD-10-PCS; CPT 52352; principal; 2019-02-09 14:10)
DX: N13.30 Unspecified hydronephrosis (principal); R39.89 Other symptoms and signs involving the genitourinary system; R31.29 Other microscopic hematuria; R10.2 Pelvic and perineal pain; R35.0 Frequency of micturition; E03.9 Hypothyroidism, unspecified; Z79.899 Other long term (current) drug therapy
CPT/HCPCS: 00910; 52351; 81025; J7120; C1769; J2405

== ENCOUNTER → 2019-03-16 09:37 | Outpatient (CLI) | payer BC, SELFPAY ==
[2019-03-16 11:32] LABS: T4 Free Direct 0.95 ng/dL (0.76-1.46); Thyroid Stim Hormone (TSH) 2.82 uIU/mL (0.358-3.74)
[2019-03-16 11:43] LABS: Vitamin D,25 Hydroxy 21.7 ng/mL (29.95-100.01)
== END ==
PROVIDERS: Referring Provider Internal Medicine Endocrinology, Diabetes & Metabolism; Visit Provider Internal Medicine Endocrinology, Diabetes & Metabolism
DX: E55.9 Vitamin D deficiency, unspecified (principal); E04.0 Nontoxic diffuse goiter
CPT/HCPCS: 36415; 82306; 84439; 84443

== ENCOUNTER → 2019-05-27 07:22 | Outpatient (CLI) | payer BC, SELFPAY ==
[2019-05-27 08:53] LABS: CRP < 2.90 mg/L (0.0-3.0)
[2019-05-30 16:28] LABS: Endomysial Antibody IgA Negative (Negative)
[2019-05-31 13:57] LABS: Immunoglobulin A 198 mg/dL (87-352); t-Transglutaminase IgA <2 U/mL (0-3)
== END ==
PROVIDERS: Referring Provider Internal Medicine Gastroenterology; Visit Provider Internal Medicine Gastroenterology
DX: R19.7 Diarrhea, unspecified (principal)
CPT/HCPCS: 36415; 82784; 83516; 86140; 86255

== ENCOUNTER → 2019-09-26 10:05 | Outpatient (CLI) | payer BC, SELFPAY ==
[2019-06-05 13:07] VITALS: BMI 27.1
[2019-09-26 10:33] LABS: Thyroid Stim Hormone (TSH) 6.37 uIU/mL (0.358-3.74)
== END ==
DX: E03.9 Hypothyroidism, unspecified (principal)
CPT/HCPCS: 36415; 84443

== ENCOUNTER 2019-10-21 22:12 | Emergency (ER) | payer BC, SELFPAY ==
[2019-10-02 10:42] VITALS: BMI 27.1
[2019-10-21 22:16] VITALS: BP 107/95; PULSE 80; RESP 23; TEMP 36.5; O2SAT 100; BMI 27.6
[2019-10-21] MEDS: 0.9% Normal Saline 1,000 ML 999 ML IV (23:18)
[2019-10-21] MEDS: Ondansetron 4 MG/2 ML Vial IV (23:18)
--- NOTE | 2019-10-21 23:46 | ED.DEP ---
ED Disposition - Plan for ED Patient: Instructions: Alcohol Intoxication Referrals: Ang Whyte MD [Primary Care Provider] -
--- NOTE | 2019-10-21 23:50 | ED.DCSUM_ITS ---
- ER Visit Summary Date of Service: 10/21/19 Chief Complaint: Alcohol intoxication History of Present Illness: The patient is a 39 F presenting with alcohol intoxication. Patient states that she has a coworker who recently lost her son. Tonight she was drinking alcohol related to the stress. She states she had 7-8 shots of tequila. Her called EMS when he believed she was having a panic attack, hyperventilating. Denies trauma. She admits to feeling anxious and stressed. She denies suicidal thoughts. Physical Examination: Vitals are stable. Patient is afebrile. Alert no acute distress. HEENT exam is unremarkable. Neck is supple. Lungs are clear and equal bilaterally. Heart is regular rate and rhythm. Abdomen is soft nontender nondistended. Extremities are unremarkable. Skin is warm and dry. No focal neurologic deficit. Remainder of exam is unremarkable. Emergency Department Course and Treatment: Patient was given IV fluids, Zofran. She was observed in the ED. Alcohol level 136. On reevaluation, patient is fe eling improved. She is advised to follow-up with her primary care physician. Advised return to ED if worsening complaints. Disposition: Discharge home Impression: Alcohol intoxication This note was generated with [employer] dictation software. It may contain incorrect words, spelling, and punctuation that were not noted in review of the chart prior to signing ED Disposition - Plan for ED Patient: Instructions: Alcohol Intoxication Referrals: Ang Whyte MD [Primary Care Provider] -
[2019-10-22 00:59] VITALS: PULSE 81; RESP 14; O2SAT 98
[2019-10-22] MEDS: 0.9% Normal Saline 1,000 ML 999 ML IV (00:59)
[2019-10-22 01:34] VITALS: PULSE 76; RESP 16; O2SAT 98
== END 2019-10-22 01:50 | disposition home or self-care (01) ==
LOC: ED 22:53
PROVIDERS: Emergency Provider Emergency Medicine
DX: F10.129 Alcohol abuse with intoxication, unspecified (principal); Y90.6 Blood alcohol level of 120-199 mg/100 ml
CPT/HCPCS: 80320; 96361; 96374; 99285; J7030; G0480; J2405

== ENCOUNTER → 2020-03-31 | Outpatient (CLI) | payer BC, SELFPAY ==
[2020-03-31 09:17] LABS: T4 Free Direct 0.93 ng/dL (0.76-1.46); Thyroid Stim Hormone (TSH) 7.69 uIU/mL (0.358-3.74)
== END | disposition home or self-care (01) ==
LOC: LABSPEC 08:41
PROVIDERS: Visit Provider Nurse Practitioner Family
DX: E03.9 Hypothyroidism, unspecified (principal)
CPT/HCPCS: 36415; 84439; 84443

== ENCOUNTER → 2020-07-05 07:27 | Outpatient (CLI) | payer BC, SELFPAY ==
[2020-07-05 08:15] LABS: T4 Free Direct 1.06 ng/dL (0.76-1.46); Thyroid Stim Hormone (TSH) 5.08 uIU/mL (0.358-3.74)
[2020-07-05 09:51] LABS: Vitamin D,25 Hydroxy 15.6 ng/mL
== END ==
PROVIDERS: PCP Nurse Practitioner Family; Referring Provider Nurse Practitioner Family; Visit Provider Nurse Practitioner Family
DX: E03.9 Hypothyroidism, unspecified (principal); E55.9 Vitamin D deficiency, unspecified
CPT/HCPCS: 36415; 82306; 84439; 84443

== ENCOUNTER 2020-10-25 14:16 | Emergency (ER) | payer BC, SELFPAY ==
[2020-10-25 14:17] VITALS: BP 124/81; PULSE 82; RESP 15; TEMP 36.4; O2SAT 100; BMI 28.1
--- NOTE | 2020-10-25 14:31 | CT_ITS ---
STUDY: CT BRAIN WITHOUT CONTRAST REASON FOR EXAM: Female, 40 years old. HEADACHE X 1 WEEK RADIATION DOSAGE (If Supplied By Facility): CTDIvol = ( 44.99 ) mGy, DLP = ( 812.98 ) mGycm TECHNIQUE: Transaxial CT imaging of the brain was performed without administration of intravenous contrast material. Individualized dose optimization techniques were used for this CT. COMPARISON: No relevant priors. FINDINGS: Normal soft tissue structures. Normal calvarium. Normal size ventricles and extra-axial spaces for the patient''s age. Normal white matter tracts of the cerebral hemispheres. Normal basal ganglia and thalami. Normal brainstem. Normal cerebellum. There is no intracranial hemorrhage. There are no findings of an acute ischemic infarction. Normal visualized paranasal sinuses. CT/Brain/Head without Contrast IMPRESSION: Normal unenhanced CT scan of the brain. Electronically Signed: Thai Hamlin, at 15:28 EST , Service support ,
--- NOTE | 2020-10-25 14:31 | ED.VIS.GEN ---
History of Present Illness Chief Complaint: Headache Informant: Patient Onset: Weeks - 1 week Timing: Waxes and wanes Current Severity: Mild Maximum Severity: Mild Narrative: Patient presents with 1 week history of left-sided headache. She states that she thought she had a hangover a week ago and had a mild headache. Symptoms have persisted throughout the week. She has tried ibuprofen, Excedrin, Vicodin, Xanax without improvement. Patient does not have light sensitivity, nausea, or vomiting. She did note some tingling in her left hand today. She does report some tightness across her neck that she feels is likely secondary to tension. Patient denies head injury. No significant URI or cold symptoms. - Past Medical History (1) Hypothyroidism Status: Chronic (2) Mitral valve prolapse Status: Chronic Past Medical History - Allergies and Home Meds Allergies/Adverse Reactions: Allergies Penicillins Adverse Reaction (Severe, Verified 10/21/19 22:20) Vomiting Primary Care Physician: Ang Traore INVENTORY CONTROL SPECIALIST, INVENTORY CONTROL SPECIALIST-C [Primary Care Provider] - Prior records reviewed: Yes Lives: With Family Smoking Status: Never smoker Review of Systems General: Denies: Chills, Fever Eyes: Denies: Visual changes - bilaterally ENT: Denies: Bilateral ear pain Cardiovascular: Denies: Chest pain Respiratory: Denies: Dyspnea, Cough Gastrointestinal: Denies: Abdominal pain, Nausea, Vomiting, Diarrhea Genitourinary: Denies: Dysuria Musculoskeletal: Denies: Swelling, Extremity Pain Neurological: Reports: Parasthesia. Denies: Weakness Hematologic: Denies: Easy bruising, Easy bleeding Allergy: Denies: Uticaria Physical Exam Vital Signs/Narrative: Vital Signs Temp Pulse Resp BP Pulse Ox 10/25/20 14:17 97.6 F L 82 15 124/81 H 100 Inital Vital Signs reviewed: Yes General: Well nourished, Well developed Head: Normocephalic ENT: Moist mucous membranes Neck: Supple, Nontender Cardiovascular: Regular rate, Regular rhythm Respiratory: No distress, CTA bilaterally Abdomen: Soft, Nontender Back: Nontender Extremities: Nontender Skin: Normal color Neurological: Alert, Oriented x3, Normal Strength, Normal Sensation Psychological: Normal affect Diagnostic/Tx/Re-eval Impressions Brain CT 10/25/20 14:31 IMPRESSION: Normal unenhanced CT scan of the brain. Electronically Signed: Thai Hamlin at 15:28 EST , Service support , 10/25/20 14:31 Brain/Head without Contrast [CT] Stat - Medical Decision Making Patient was given Toradol, Reglan, Benadryl, and IV fluids. Head CT is unremarkable. On repeat evaluation she does have some improvement in her symptoms. She will be discharged home. Advised her that if her headaches continue she should follow-up with her PCP for possible MRI. She voices understanding and agreement. ED Disposition - Plan for ED Patient: Disposition: Home or Assisted Living Diagnosis: Cephalgia Instructions: ED Headache Unspecified Referrals: Ang Traore INVENTORY CONTROL SPECIALIST, INVENTORY CONTROL SPECIALIST-C [Primary Care Provider] - 1 Week if not improving
[2020-10-25] MEDS: DiphenhydrAMINE 50 MG/ML Syringe 25 MG IV (15:01)
[2020-10-25] MEDS: Ketorolac 30 MG/ML Syringe IV (15:03)
[2020-10-25] MEDS: Metoclopramide 10 MG/2 ML Vial IV (15:08)
[2020-10-25 16:12] VITALS: PULSE 80; RESP 17; O2SAT 99
== END 2020-10-25 16:14 | disposition home or self-care (01) ==
PROVIDERS: Emergency Provider Emergency Medicine; PCP Nurse Practitioner Family
DX: R51.9 Headache, unspecified (principal); E03.9 Hypothyroidism, unspecified
CPT/HCPCS: 70450; 96374; 96375; 99283; A4216

== ENCOUNTER → 2021-01-04 08:03 | Outpatient (CLI) | payer OTHER, SELFPAY ==
[2021-01-04 08:31] LABS: T4 Free Direct 0.83 ng/dL (0.76-1.46)
[2021-01-04 09:15] LABS: Vitamin D,25 Hydroxy 11.1 ng/mL
== END ==
PROVIDERS: PCP Nurse Practitioner Family; Visit Provider Nurse Practitioner Family
DX: E03.9 Hypothyroidism, unspecified (principal); E55.9 Vitamin D deficiency, unspecified
CPT/HCPCS: 36415; 82306; 84439; 84443

== ENCOUNTER → 2021-05-20 | Outpatient (CLI) | payer OTHER, SELFPAY ==
[2021-05-20 08:50] LABS: T4 Free Direct 1.17 ng/dL (0.76-1.46); Thyroid Stim Hormone (TSH) 2.58 uIU/mL (0.358-3.74)
[2021-05-20 08:53] LABS: Vitamin D,25 Hydroxy 33.1 ng/mL
== END | disposition home or self-care (01) ==
LOC: LAB 05-21 07:38 → LABSPEC 05-21 08:45
PROVIDERS: Visit Provider Nurse Practitioner Family
DX: E55.9 Vitamin D deficiency, unspecified (principal); E03.9 Hypothyroidism, unspecified; E05.00 Thyrotoxicosis with diffuse goiter without thyrotoxic crisis or storm
CPT/HCPCS: 36415; 82306; 84439; 84443

== ENCOUNTER → 2021-07-24 10:18 | Outpatient (CLI) | payer OTHER, SELFPAY ==
[2021-07-24 11:38] LABS: HIV - WCH Non-Reactive (Nonreactive); Hepatitis B Surface Antigen Non-Reactive (Nonreactive); Hepatitis C Antibody Non-Reactive (Nonreactive); Syphilis Antibodies Non-reactive
== END ==
PROVIDERS: Visit Provider Nurse Practitioner
DX: Z11.3 Encounter for screening for infections with a predominantly sexual mode of transmission (principal)
CPT/HCPCS: 36415; 86703; 86780; 86803; 87340

== ENCOUNTER → 2021-08-15 16:35 | Outpatient (CLI) | payer OTHER, SELFPAY ==
[2021-08-15 17:29] LABS: T4 Free Direct 1.04 ng/dL (0.76-1.46); Thyroid Stim Hormone (TSH) 3.58 uIU/mL (0.358-3.74)
== END ==
PROVIDERS: PCP Nurse Practitioner Family; Referring Provider Nurse Practitioner Family; Visit Provider Nurse Practitioner Family
DX: E03.9 Hypothyroidism, unspecified (principal); E55.9 Vitamin D deficiency, unspecified
CPT/HCPCS: 36415; 84439; 84443

== ENCOUNTER → 2021-09-19 | Outpatient (CLI) | payer OTHER, SELFPAY | END | disposition home or self-care (01) | LOC: LABSPEC 10:21 | PROVIDERS: PCP Nurse Practitioner Family; Visit Provider Nurse Practitioner Family | DX: Z20.822 Contact with and (suspected) exposure to COVID-19 (principal) | CPT/HCPCS: 87426 ==

== ENCOUNTER 2021-09-29 06:49 | Emergency (ER) | payer OTHER, SELFPAY ==
--- NOTE | 2021-09-29 06:53 | ED.RN ---
WHILE TRIAGING PT, SHE STOPPED ANSWERING QUESTIONS. SHE GOT UPSET THAT SHE WAS ASKED IF SHE WAS VACCINATED. SHE REPORTS SHE REFUSES TO ANSWER THAT QUESTION AND THAT IT IS HER RIGHT TO REFUSE. INFORMED PT THAT IT WOULD BE MARKED NO IF SHE REFUSED TO ANSWER. SHE SAID FINE I'M DONE, TOOK BP CUFF OFF, GOWN OFF, GOT DRESSED AND WALKED OUT.
== END 2021-09-29 06:59 | disposition left against medical advice (07) ==
LOC: ED 06:59
PROVIDERS: PCP Nurse Practitioner Family
DX: R69 Illness, unspecified (principal); Z53.21 Procedure and treatment not carried out due to patient leaving prior to being seen by health care provider

== ENCOUNTER 2021-10-02 11:37 | Emergency (ER) | payer OTHER, SELFPAY ==
[2021-10-02 11:38] VITALS: BP 112/77; PULSE 84; RESP 15; TEMP 36.6; O2SAT 99; BMI 26.6
--- NOTE | 2021-10-02 12:15 | EX.ED.DYSGE1 ---
HPI History of Present Illness Chief Complaint: Shortness of Breath Informant: patient and spouse/S.O. Narrative Narrative: Patient started with Covid symptoms on the . She was diagnosed positive on the . She had some diarrhea earlier but it is gone. She had myalgias and fever earlier but that is gone. She has had some mild cough but no sputum production. She has never had dyspnea and still does not have dyspnea. No chest pain. She does get some epigastric abdominal comfort. Her biggest complaint is the nausea and vomiting. She actually has not vomited but she gets dry heaves. But the nausea does limit her eating or drinking. She was seen at another emergency department a couple days ago. She was given IV fluids. Testing was done although I do not know the specifics of it. She was sent home with Zofran. She has been trying Zofran but it does not help. She also has Phenergan suppositories but does not want to use them. [facility] Medical History (Updated 10/02/21 @ 14:[address] Justo Arnold MD) Abnormal CBC Atrial fibrillation Chronic fatigue and malaise Chronic headaches Eczema Fatigue Goiter Hypothyroidism Hypothyroidism (acquired) Mitral valve prolapse Premature ventricular contractions Home Medications levothyroxine 112 mcg PO QDAY 10/25/20 [History Last Taken Unknown] esomeprazole magnesium [Nexium] 20 mg PO DAILY #7 cap 10/02/21 [Rx Last Taken Unknown] promethazine 25 mg PO TID PRN #14 tab 10/02/21 [Rx Last Taken Unknown] Allergy/AdvReac Type Severity Reaction Status Date / Time Penicillins AdvReac Severe Vomiting Verified 10/21/19 22:20 Family History Mother Hypertension CAD (coronary artery disease) Social History Smoking Status: Never smoker alcohol intake: current alcohol intake frequency: holidays/special occasions only substance use type: does not use caffeine: Yes Type: coffee Number of servings: 2 ROS ROS ED Constitutional Constitutional ED: Reports subjective Eyes Eyes: Denies blurry vision, change in vision or diplopia ENT ENT ED: Reports rhinorrhea; Denies sore throat Cardiovascular Cardiovascular: Denies chest pain or palpitations Respiratory/Chest Respiratory/Chest: Reports cough; Denies dyspnea or sputum Gastrointestinal Gastrointestinal: Reports abdominal pain and nausea; Denies constipation, diarrhea, melena or vomiting Genitourinary Genitourinary ED: Denies dysuria, hematuria or urinary frequency Musculoskeletal Musculoskeletal: Reports myalgias Integumentary Denies rash Neurologic Neurologic: Denies headache(s) or weakness Endocrine Endocrinology: Denies polydipsia or polyuria Allergic/Immunologic Allergic/Immunologic ED: Denies urticaria EXAM Physical Exam Const Vital Signs: 10/02/21 11:38 10/02/21 12:05 10/02/21 13:22 Temperature 97.9 F Temperature Source Temporal Pulse Rate 84 66 Respiratory Rate 15 16 Respiratory Effort Short of Breath Respiratory Depth Normal Respiratory Pattern Normal Blood Pressure 112/77 117/83 H Blood Pressure Mean 88 94 Pulse Ox 99 98 Oxygen Delivery Method Room Air Room Air Positive well nourished and well developed General Appearance ED: well developed and NAD; Negative for cyanotic or diaphoretic HEENT Reports dry mucous membranes HEENT Narrative: Mildly mucous membranes Negative for trauma or tenderness Mouth ED: Yes dry mucous membranes Mouth: dry mucous membranes Eyes Negative for PERRL Neck supple Chest Wall inspection of chest normal Resp normal respiratory effort Resp Narrative: Very few Auscultation: rhonchi Cardio regular rate, regular rhythm and no murmurs GI normal to inspection, nondistended, normoactive bowel sounds, non-tender and non-distended GI Narrative: Patient has epigastric area pain. But she really has no notable tenderness. None at the right upper quadrant either. Lower abdominal exam is also benign Palpation: soft Back/Spine no CVA tenderness Extremity normal to inspection General Extremety ED: Negative for edema or tenderness General Extremity: Negative for edema Neuro Sensorium / Orientation: alert Psych mental status grossly normal Skin no rashes or lesions noted MDM MDM MDM Narrative Medical decision making narrative: Patient's blood work shows normal CBC. Electrolytes are normal other than mildly decreased potassium. We will give oral potassium in diet should improve this. Electrolytes showed nonspecific elevation of AST and ALT. Alk phos is normal. There is no sign of dehydration. Patient has a slight cough. But no sputum production or hemoptysis. She is not tachypneic tachycardic or hypoxic at all. She has an O2 saturation monitor at home and has remained normal. I explained to the patient that she is going to have about 14 days of symptoms. She generally has GI symptoms predominating. We will write for Phenergan orally to see if that helps her. The zofran did help here. It does not seem to be helping very much at home. We discussed reasons to return and expected course. Lab Data Attestation: I reviewed the patient's lab results. Labs: Laboratory Results - last 24 hr 10/02/21 10/02/21 12:32 12:32 WBC 4.5 RBC 5.13 Hgb 14.5 Hct 44.1 MCV 86.0 MCH 28.3 MCHC 32.9 RDW Std Deviation 39.2 RDW Coeff of Hanna 12.4 Plt Count 246 MPV 11.0 Immature Gran % (Auto) 0.200 Neut % (Auto) 63.0 Lymph % (Auto) 28.4 [place] % (Auto) 7.3 Eos % (Auto) 0.7 Baso % (Auto) 0.4 Absolute Neuts (auto) 2.8 Absolute Lymphs (auto) 1.28 Nucleated RBC % 0 Sodium 142 Potassium 3.1 L Chloride 106 Carbon Dioxide 27.0 Anion Gap 9 BUN 5 L Creatinine 0.77 Estim Creat Clear Calc 92.56 Est GFR (MDRD) Af Amer 105 Est GFR (MDRD) Non-Af 87 BUN/Creatinine Ratio 6.5 L Glucose 90 Calcium 10.1 Total Bilirubin 0.80 AST 67 H ALT 84 H Alkaline Phosphatase 71 Total Protein 8.0 Albumin 3.9 Globulin 4.1 Albumin/Globulin Ratio 1.0 Lipase 184 Discharge Plan Triage Chief Complaint: Shortness of Breath ED Provider: Justo Arnold Dx/Rx/DC Orders Clinical Impression: COVID, Nausea Instructions: Caring for Someone Who Has COVID-19 Prescriptions: New promethazine 25 mg tablet 25 mg PO TID PRN (Reason: nausea and vomiting) Qty: 14 RF: 0 esomeprazole magnesium [Nexium] 20 mg capsule,delayed release(DR/EC) 20 mg PO DAILY Qty: 7 RF: 0 No Action levothyroxine 100 MCG tablet 112 mcg PO QDAY RF: 0 Primary Care Provider: Ang Traore NP Referrals: Ang Traore NP, VENDER-C [Primary Care Provider] - 3-5 Days if not improving Disposition Disposition: Home, Self Care
[2021-10-02] MEDS: Ondansetron 4 MG/2 ML Vial IV (12:45)
[2021-10-02 12:48] LABS: Absolute Lymphocyte Count 1.28 X10^3/uL (0.83-4.51); Absolute Neutrophil Count 2.8 X10^3/uL (2.0-7.7); Basophil# 0.02 X10^3/uL; Basophil% 0.4 % (0-1); Eosinophil# 0.03 X10^3/uL; Eosinophils% 0.7 % (0-5); Hematocrit 44.1 % (37-47); Hemoglobin 14.5 g/dL (12.0-15.0); Lymphocyte # 1.28 X10^3/ul (0.83-4.51); Lymphocyte % 28.4 % (19-41); Mean Corp Hgb Conc 32.9 g/dL (32-36); Mean Corpuscular Hgb 28.3 pg (27.0-32.0); Monocyte# 0.33 X10^3/uL; Monocyte% 7.3 % (0-10); NRBC Flagged by Analyzer 0 % (0-5); Neutrophil # 2.83 X10^3/uL (2.7-7.7); Platelet Count 246 K/mm3 (150-450); RBC Distribution Width CV 12.4 % (11.6-14.6); RBC Distribution Width SD 39.2 fl (35.1-43.9); Red Blood Count 5.13 M/mm3 (4.2-5.4); White Blood Count 4.5 K/mm3 (4.4-11.0)
[2021-10-02 13:03] LABS: AST(SGOT) 67 U/L (15-37); Alanine Aminotransfer ALT/SGPT 84 U/L (13-56); Albumin, Serum 3.9 g/dL (3.2-5.0); Alkaline Phosphatase 71 U/L (45-117); Anion Gap 9 (5-15); BUN 5 mg/dL (7-18); BUN/Creat Ratio 6.5 RATIO (10-20); Calcium,Total 10.1 mg/dL (8.5-10.1); Chloride 106 mmol/L (98-107); Creatinine, Serum 0.77 mg/dL (0.55-1.02); EST Glomerular Filtration Rate 87 mL/min (>60); Est Glom Filt Rate - Afr Amer 105 mL/min (>60); Estimated Creatinine Clearance 92.56 ml/min; Globulin 4.1 g/dL (2.2-4.2); Glucose 90 mg/dL (74-106); Lipase 184 U/L (73-393); Potassium 3.1 mmol/L (3.5-5.1); Sodium Level 142 mmol/L (136-145)
[2021-10-02] MEDS: 0.9% Normal Saline 1,000 ML 1000 ML IV (13:20)
[2021-10-02 13:22] VITALS: BP 117/83; PULSE 66; RESP 16; O2SAT 98
[2021-10-02 15:06] VITALS: BP 113/71; PULSE 68; RESP 18; O2SAT 97
[2021-10-02] MEDS: Potassium Chloride Oral Tablet 20 MEQ PO (15:06)
== END 2021-10-02 15:08 | disposition home or self-care (01) ==
PROVIDERS: Emergency Provider Emergency Medicine; PCP Nurse Practitioner Family
DX: U07.1 COVID-19 (principal); R11.0 Nausea
CPT/HCPCS: 80053; 83690; 85025; 96361; 96365; 96375; 99284; J7030; A4216; J2405; J3490

== ENCOUNTER 2021-11-25 12:49 | Outpatient (CLI) | payer OTHER, SELFPAY ==
[2021-11-25 15:03] LABS: T4 Free Direct 0.89 ng/dL (0.76-1.46); Thyroid Stim Hormone (TSH) 4.72 uIU/mL (0.358-3.74)
== END 2021-11-25 23:59 | disposition short-term general hospital (02) ==
LOC: LAB 12:49
PROVIDERS: PCP Nurse Practitioner Family; Visit Provider Nurse Practitioner Family
DX: E03.9 Hypothyroidism, unspecified (principal); E55.9 Vitamin D deficiency, unspecified
CPT/HCPCS: 36415; 84439; 84443

== ENCOUNTER 2022-02-11 08:41 | Outpatient (CLI) | payer OTHER, SELFPAY ==
[2022-02-11 10:53] LABS: Free T3 2.8 pg/mL (2.18-3.98); T4 Free Direct 0.51 ng/dL (0.76-1.46)
== END 2022-02-11 23:59 | disposition home or self-care (01) ==
LOC: LAB 08:42
PROVIDERS: PCP Nurse Practitioner Family; Visit Provider Nurse Practitioner Family
DX: E03.9 Hypothyroidism, unspecified (principal)
CPT/HCPCS: 36415; 84439; 84443; 84481

== ENCOUNTER → 2022-05-16 | Outpatient (CLI) | payer OTHER, SELFPAY ==
[2022-05-16 09:21] LABS: T4 Free Direct 0.77 ng/dL (0.76-1.46)
== END | disposition home or self-care (01) ==
LOC: LAB 08:12
PROVIDERS: PCP Nurse Practitioner Family; Visit Provider Nurse Practitioner Family
DX: E03.9 Hypothyroidism, unspecified (principal)
CPT/HCPCS: 36415; 84439; 84443

== ENCOUNTER → 2022-11-11 | Outpatient (CLI) | payer OTHER, SELFPAY | END | disposition home or self-care (01) | LOC: LAB 10:43 | PROVIDERS: PCP Nurse Practitioner Family; Visit Provider Nurse Practitioner Family | DX: E03.9 Hypothyroidism, unspecified (principal); E05.00 Thyrotoxicosis with diffuse goiter without thyrotoxic crisis or storm; E55.9 Vitamin D deficiency, unspecified | CPT/HCPCS: 84439; 84443 ==

== ENCOUNTER 2023-02-11 04:13 | Emergency (ER) | payer OTHER, SELFPAY ==
[2023-02-11 04:15] VITALS: BP 119/78; PULSE 64; RESP 18; TEMP 36.5; O2SAT 100; BMI 27.6
--- NOTE | 2023-02-11 04:21 | RAD_ITS ---
INDICATION: chest pain EXAMINATION/TECHNIQUE: X-RAY - XR Chest 1 View COMPARISON: Chest x-ray from 07/15/2018 FINDINGS: LINES/DEVICES: None. LUNGS: Slightly hyperexpanded lungs again noted. No pulmonary edema or focal airspace consolidation. No sizable pleural effusion. No pneumothorax detected. MEDIASTINUM AND CARDIOVASCULAR STRUCTURES: Heart size within normal limits. Mediastinal contours unremarkable. BONES AND SOFT TISSUES: No acute findings. RAD/Chest 1 View (Portable) IMPRESSION: COPD Electronically Signed: Frederick Ocasio MD at 5:37 EDT ,
--- NOTE | 2023-02-11 04:21 | EKG12_ITS ---
Test Reason : CP Blood Pressure : / mmHG Vent. Rate : 060 BPM Atrial Rate : 060 BPM P-R Int : 138 ms QRS Dur : 078 ms QT Int : 400 ms P-R-T Axes : 072 046 041 degrees QTc Int : 400 ms Normal sinus rhythm Normal ECG Confirmed by DULCE AQUINO ([id number]), art editor AMY CAMPO ([id number]) on 02/17/2023 7:39:13 AM Referred By: LANETTE Confirmed By:DULCE AQUINO
[2023-02-11] MEDS: Aspirin 81 MG TAB.CHEW 324 MG PO (04:40)
[2023-02-11 04:51] LABS: Absolute Lymphocyte Count 1.31 X10^3/uL (0.83-4.51); Absolute Neutrophil Count 2.4 X10^3/uL (2.0-7.7); Basophil# 0.04 X10^3/uL; Eosinophil# 0.07 X10^3/uL; Eosinophils% 1.7 % (0-5); Hemoglobin 12.9 g/dL (12.0-15.0); Lymphocyte # 1.31 X10^3/ul (0.83-4.51); Lymphocyte % 31.4 % (19-41); Mean Corp Hgb Conc 31.5 g/dL (32-36); Mean Corpuscular Hgb 29.3 pg (27.0-32.0); Mean Platelet Vol. 10.9 fl (6.2-12.0); Monocyte# 0.34 X10^3/uL; Monocyte% 8.2 % (0-10); NRBC Flagged by Analyzer 0 % (0-5); Neutrophil % 57.5 % (47-70); Platelet Count 302 K/mm3 (150-450); RBC Distribution Width CV 13.2 % (11.6-14.6); RBC Distribution Width SD 45.4 fl (35.1-43.9); Red Blood Count 4.41 M/mm3 (4.2-5.4); White Blood Count 4.2 K/mm3 (4.4-11.0)
[2023-02-11 05:14] LABS: Anion Gap 1 (5-15); BUN 14 mg/dL (7-18); BUN/Creat Ratio 20.9 RATIO (10-20); Calcium,Total 9.3 mg/dL (8.5-10.1); Chloride 111 mmol/L (98-107); Creatinine, Serum 0.67 mg/dL (0.55-1.02); EST Glomerular Filtration Rate 102 mL/min (>60); Est Glom Filt Rate - Afr Amer 123 mL/min (>60); Estimated Creatinine Clearance 105.28 ml/min; Glucose 98 mg/dL (74-106); Potassium 4.3 mmol/L (3.5-5.1); Sodium Level 139 mmol/L (136-145); Troponin-I HS (w/2H Reflex) < 3 pg/mL (3.0-54.0)
[2023-02-11 05:42] VITALS: BP 106/73; PULSE 59; RESP 18; O2SAT 100
--- NOTE | 2023-02-11 05:45 | EDS_ITS ---
HPI History of Present Illness Chief Complaint: Chest Pain Narrative Narrative: 42-year-old female presenting with epigastric/retrosternal chest pain. This started immediately upon hearing her alarm clock at 3 AM. Patient states it felt like pressure and tightness. Patient states it was more severe initially but then was good enough that she thought she could go to work. She reports driving to work and feeling lightheaded and continued chest tightness. She does admit to feeling nauseous this morning. She admits to me she did drink some tequila last night. Does not have any history of pancreatitis. She states she is now feeling better. She still admits to a little bit of nausea. [facility] Medical History Abnormal CBC Atrial fibrillation Chronic fatigue and malaise Chronic headaches Eczema Fatigue Goiter Hypothyroidism Hypothyroidism (acquired) Mitral valve prolapse Premature ventricular contractions Home Medications levothyroxine 100 mcg tablet 125 mcg PO QDAY 10/25/20 [History Last Taken Unknown] metoprolol succinate 25 mg tablet,extended release 24 hr 25 mg PO DAILY 02/11/23 [History Last Taken Unknown] Allergy/AdvReac Type Severity Reaction Status Date / Time Penicillins AdvReac Severe Vomiting Verified 10/21/19 22:20 Family History Mother Hypertension CAD (coronary artery disease) Social History Smoking Status: Never smoker alcohol intake: current alcohol intake frequency: holidays/special occasions only substance use type: does not use caffeine: Yes Type: coffee Number of servings: 2 ROS ROS ED ROS Narrative Lightheadedness Constitutional Constitutional ED: Denies chills, fever(s) or sweats Eyes Eyes: Denies blurry vision or change in vision ENT ENT ED: Denies ear pain or sore throat Cardiovascular Cardiovascular: Reports as per HPI; Denies palpitations or racing heartbeat Respiratory/Chest Respiratory/Chest: Denies cough, dyspnea or sputum Gastrointestinal Gastrointestinal: Reports nausea; Denies abdominal pain, constipation, diarrhea or vomiting Genitourinary Genitourinary ED: Denies dysuria, hematuria or urinary frequency Musculoskeletal Musculoskeletal: Denies arthralgias, myalgias or neck pain Integumentary Denies abscess, Abrasions or rash Neurologic Neurologic: Denies headache(s), paresthesias or weakness Psychiatric Psychiatric: Denies anxiety, depression, suicidal ideation or suicidal thoughts Endocrine Endocrinology: Denies polydipsia or polyuria EXAM Physical Exam Const Vital Signs: 02/11/23 04:15 02/11/23 04:17 02/11/23 04:41 Temperature 97.7 F L Temperature Source Temporal Pulse Rate 64 Respiratory Rate 18 Respiratory Effort Normal Non-Labored Blood Pressure 119/78 Blood Pressure Mean 91 Pulse Ox 100 Oxygen Delivery Method Room Air Room Air 02/11/23 05:42 02/11/23 06:57 02/11/23 07:26 Temperature Temperature Source Pulse Rate 59 L 55 L 69 Respiratory Rate 18 18 15 Respiratory Effort Blood Pressure 106/73 100/65 135/74 H Blood Pressure Mean 84 76 Pulse Ox 100 99 98 Oxygen Delivery Method Room Air Room Air Heart Score History: Slightly/Non-Suspicious ECG: Normal Age: >45 - <65 years Risk Factors: 1 or 2 Risk Factors Troponin: </= Normal Limit Score: 2 MDM MDM MDM Narrative Medical decision making narrative: Patient presenting with epigastric sharp retrosternal chest pain. Started when upon awakening. It initially improved and then she started to feel lightheaded while she was driving. She drove home and had her drive her to the emergency room. She states that this is about an hour. She is now pain-free complaining of some mild nausea. She then admits to me that she drank some tequila last night. Differential includes but is not limited to ACS, costochondritis, muscle strain. Did consider PE however the patient is PERC negative. Also did consider GERD, gastritis, pancreatitis given the patient's alcohol intake last night. CBC to assess white blood cell count, hemoglobin, platelets, differential. BMP to assess renal function, electrolytes, glucose, anion gap. LFTs and lipase to assess for liver function and pancreatitis. High-sensitivity troponin, EKG and chest x-ray to assess cardiopulmonary sources. Patient given aspirin 324 mg. Was given Zofran for nausea. CBC shows leukopenia with white blood count of 4.2. Hemoglobin monitor stable. Platelets normal. Renal function electrolytes within normal limits. LFTs are normal. Lipase negative. EKG on my interpretation shows sinus rhythm at 60 bpm without ectopy or ischemia. Chest x-ray on my interpretation shows no acute cardiopulmonary process. Radiologist interprets this and agrees. Delta troponin obtained and is less than 3 as well. Patient counseled on all findings. I feel she stable for discharge. Return precautions discussed. Impression: 1. Chest pain 2. Nausea Lab Data Labs: Laboratory Results - last 24 hr 02/11/23 02/11/23 02/11/23 04:40 04:40 04:40 WBC 4.2 L RBC 4.41 Hgb 12.9 Hct 41.0 MCV 93.0 MCH 29.3 MCHC 31.5 L RDW Std Deviation 45.4 H RDW Coeff of Hanna 13.2 Plt Count 302 MPV 10.9 Immature Gran % (Auto) 0.200 Neut % (Auto) 57.5 Lymph % (Auto) 31.4 [place] % (Auto) 8.2 Eos % (Auto) 1.7 Baso % (Auto) 1.0 Absolute Neuts (auto) 2.4 Absolute Lymphs (auto) 1.31 Nucleated RBC % 0 Sodium 139 Potassium 4.3 Chloride 111 H Carbon Dioxide 27.0 Anion Gap 1 L BUN 14 Creatinine 0.67 Estim Creat Clear Calc 105.28 Est GFR (MDRD) Af Amer 123 Est GFR (MDRD) Non-Af 102 BUN/Creatinine Ratio 20.9 H Glucose 98 Calcium 9.3 Total Bilirubin 0.20 Direct Bilirubin 0.07 AST 21 ALT 26 Alkaline Phosphatase 58 Troponin I High Sens < 3 L Total Protein 6.8 Albumin 3.8 Globulin 3.0 Lipase 43 02/11/23 06:56 WBC RBC Hgb Hct MCV MCH MCHC RDW Std Deviation RDW Coeff of [place]anna Plt Count MPV Immature Gran % (Auto) Neut % (Auto) Lymph % (Auto) [place] % (Auto) Eos % (Auto) Baso % (Auto) Absolute Neuts (auto) Absolute Lymphs (auto) Nucleated RBC % Sodium Potassium Chloride Carbon Dioxide Anion Gap BUN Creatinine Estim Creat Clear Calc Est GFR (MDRD) Af Amer Est GFR (MDRD) Non-Af BUN/Creatinine Ratio Glucose Calcium Total Bilirubin Direct Bilirubin AST ALT Alkaline Phosphatase Troponin I High Sens < 3 L Total Protein Albumin Globulin Lipase Radiography Diagnostic Testing: Clinical Impression(s) from Imaging Studies Chest X-Ray 02/11/23 04:21 IMPRESSION: COPD Electronically Signed: Frederick Ocasio MD at 5:37 EDT , Discharge Plan Triage Chief Complaint: Chest Pain ED Provider: Rudi Sanchez Dx/Rx/DC Orders Instructions: ED Chest Pain, Noncardiac Prescriptions: No Action levothyroxine 100 MCG tablet 125 mcg PO QDAY metoprolol succinate 25 mg tablet extended release 24 hr 25 mg PO DAILY Label Comments: take 1 tablet by mouth once daily Primary Care Provider: Ang Traore NP Referrals: Ang Traore NP, [employer] INSTRUCTIONAL ASSISTANT-[facility] [Primary Care Provider] - Disposition Disposition: Home, Self Care Discharge Date/Time: 02/11/23 07:29
[2023-02-11] MEDS: Ondansetron 4 MG/2 ML Vial IV (05:55)
[2023-02-11 06:18] LABS: AST(SGOT) 21 U/L (15-37); Alanine Aminotransfer ALT/SGPT 26 U/L (13-56); Albumin, Serum 3.8 g/dL (3.2-5.0); Alkaline Phosphatase 58 U/L (45-117); Bilirubin, Direct 0.07 mg/dL (0.00-0.30); Lipase 43 U/L (13-75); Protein, Total 6.8 g/dL (6.4-8.2)
[2023-02-11 06:48] LABS: Reflex Troponin-HS? (from REC) Y
[2023-02-11 06:57] VITALS: BP 100/65; PULSE 55; RESP 18; O2SAT 99
[2023-02-11 07:17] LABS: Troponin-I HS < 3 pg/mL (3.0-54.0)
[2023-02-11 07:26] VITALS: BP 135/74; PULSE 69; RESP 15; O2SAT 98
== END 2023-02-11 07:29 | disposition home or self-care (01) ==
PROVIDERS: Emergency Provider Student in an Organized Health Care Education/Training Program; PCP Nurse Practitioner Family; Visit Provider Student in an Organized Health Care Education/Training Program
DX: R07.9 Chest pain, unspecified (principal); I48.91 Unspecified atrial fibrillation; R11.0 Nausea; E03.9 Hypothyroidism, unspecified; Z79.899 Other long term (current) drug therapy
CPT/HCPCS: 71045; 80048; 80076; 83690; 84484; 85025; 93005; 96374; 99284; A4216; J2405

== ENCOUNTER → 2023-05-11 | Outpatient (CLI) | payer OTHER, SELFPAY ==
[2023-05-11 09:02] LABS: T4 Free Direct 1.24 ng/dL (0.76-1.46); Thyroid Stim Hormone (TSH) 2.06 uIU/mL (0.358-3.74)
== END | disposition home or self-care (01) ==
LOC: LAB 07:21
PROVIDERS: PCP Nurse Practitioner Family; Referring Provider Nurse Practitioner Family; Visit Provider Nurse Practitioner Family
DX: E03.9 Hypothyroidism, unspecified (principal); E05.00 Thyrotoxicosis with diffuse goiter without thyrotoxic crisis or storm
CPT/HCPCS: 36415; 84439; 84443

== ENCOUNTER → 2024-05-06 | Outpatient (CLI) | payer OTHER, SELFPAY ==
[2024-05-06 18:01] LABS: T4 Free Direct 1.05 ng/dL (0.76-1.46); Thyroid Stim Hormone (TSH) 3.97 uIU/mL (0.358-3.74)
== END | disposition home or self-care (01) ==
LOC: LAB 16:33
PROVIDERS: PCP Nurse Practitioner Family; Referring Provider Nurse Practitioner Family; Visit Provider Nurse Practitioner Family
DX: E03.9 Hypothyroidism, unspecified (principal)
CPT/HCPCS: 36415; 84439; 84443

== ENCOUNTER → 2025-05-06 | Outpatient (CLI) | payer OTHER, SELFPAY ==
--- OUTSIDE RECORDS SUMMARY | 2025-05-06 08:15 | XMS RPT_ITS | CCD ---
Author Organization [facility]iniSy[facility] Care Team Providers Care Archives Specialist Name Role Phone Ivania SHEN, Morgan Carpio Unavailable David RN, Amirah Thomas Unavailable David RN, Amirah Thomas Unavailable David RN, Amirah Thomas Unavailable [phone] EUGENIE ADVERTISEMENT COMPOSITOR - BOO, ANG Mercedes Primary Care Phys ician ANG TRAORE Consulting Unavailable LIUDMILA, DR SAM De Los Santos Attending Unavailable LIUDMILA, DR SAM De Los Santos Primary Care Unavailable LIUDMILA, DR SAM De Los Santos Admitting Unavailable PROVIDER, UNKNOWN Consulting Unavailable ERNESTINA DAVIDSON Attending Unavailable ANG TRAORE Primary Care Unavailable Ang Traore CNP Primary Care Provider ANG TRAORE Primary Care Unavailable BREANNA JONES Attending Unava ilable ANG TRAORE Primary Care Unavailable BREANNA JONES Attending Unava ilable ROCK 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 INTERN, AUTUMN Attending Unavailabl e EUGENIE SHANKAR - ANG HADDAD Primary Care U MIS Almodovar MD Attending Unavailable EUGENIE ADVERTISEMENT COMPOSITOR - AGRICULTURE INTERNANG Primary Care U MIS Almodovar MD Attending Unavailable EUGENIEELENA SHANKAR - ANG HADDAD Primary Care U shanna Traore EXPERIMENTAL FLIGHT TEST MECHANIC-CAng Primary Care Provi roscoe Eugenie SHARPE-CAng Referring Provider Abdiaziz Chou Attending Provider Quincy EXPERIMENTAL FLIGHT TEST MECHANIC-CVelvet Attending Provider Ang Traore NP Primary Care Unav ailable Velvet Mathew Attending Unavailable Roosevelt EXPERIMENTAL FLIGHT TEST MECHANIC, Ang Stover Referring Unav ailable Eugenie EXPERIMENTAL FLIGHT TEST MECHANIC, Ang Stover Primary Care Unav ailable Abdiaziz Chou Attending Unavailable Eugenie EXPERIMENTAL FLIGHT TEST MECHANIC, Ang Stover Referring Unav ailable Eugenie EXPERIMENTAL FLIGHT TEST MECHANIC, Ang Stover Attending Unav ailable Eugenie EXPERIMENTAL FLIGHT TEST MECHANIC, Ang Stover Primary Care Unav ailable Eugenie EXPERIMENTAL FLIGHT TEST MECHANIC, Ang Stover Referring Unav ailable Allergies Allergy Classification Reported Allergen(s) Allergy Type Date of Onset Reaction(s) Facility (9 sources) penicillin; Translations: [penicillin] drug allergy 7 Stomach ache (finding) [employer] Work Phone: (10 sources) Penicillins; Translations: [PENICILLINS] Propensity to adverse reactions 9 [facility] Repository (4 sources) Shellfish; Translations: [SHELLFISH] Propensity to adverse reactions to food (disorder) 9 [facility] Repository Medications Current Medications Medication Drug Class(es) Dates Sig (Normalized) Sig (Original) Albuterol (1 source) beta2-Adrenergic Agonist Start: 09-27-2021 take 2 puff(s) by inhalation four times daily as needed for wheezing ProAir HFA MDI (90 mcg/inh) inhalation aerosol 2 puff(s), Inhalation, QID, PRN as needed for wheezing, # 8.5 gram(s), 0 Refill(s) Start Date: 09/27/21 Status: Ordered azithromycin 250 mg oral tablet (1 source) Macrolide Antimicrobial Start: 04-01-2025 Azithromycin 250 mg tablet Active 0 PO .COMPLEX April 01, 2025 12:00am For 250 mg dose pack: take 500 mg today (day 1), then 250 mg for 4 days (days 2-5) PO Cholecalciferol (1 source) Vitamin D Start: 05-27-2021 End: 02-21-2022 cholecalciferol 50,000 intl units (1250 mcg) oral capsule Dose : 1,250 mcg = 1 cap(s), Oral, every other week, # 7 cap(s), 2 Refill(s), Pharmacy: [facility] [address], Vitamin D deficiency, 170, cm, 05/27/21 15:43:00 EDT, Height, kg, 05/27/21 15:43:00 EDT, Dosing Weight Start Date: 05/27/21 Stop Date: 02/21/22 Status: Ordered esomeprazole 20 mg delayed release oral capsule (2 sources) Proton Pump Inhibitor Start: 10-02-2021 take 1 capsule by mouth once daily Esomeprazole Magnesium (Nexium) 20 mg capsule,delayed release(DR/EC) Active 20 MG PO DAILY October 02, 2021 3:19pm 24 hr metoprolol succinate 25 mg extended release oral tablet (15 sources) beta-Adrenergic Elsa Start: 11-25-2022 End: 11-22-2023 take 1 tablet by mouth once daily Metoprolol Succinate 25 mg tablet extended release 24 hr Active 25 mg PO DAILY February 11, 2023 12:00am Start: 07-16-2017 End: 07-23-2017 take 1 tablet by mouth once daily TOPROL XL 25 MG [id number] One tablet by mouth daily METOPROLOL SUCCINATE [id number] Morgan Redd MD Start: 07-16-2017 End: 07-23-2017 take 1 tablet by mouth once daily TOPROL XL 25 MG [id number] One tablet by mouth daily METOPROLOL SUCCINATE [id number] Morgna Redd MD Start: 07-16-2017 take 1 tablet by francesca th once daily TOPROL XL 25 MG [id number] One tablet by mouth daily METOPROLOL SUCCINATE [id number] Amirah Hernandez RN pantoprazole 40 mg delayed release oral tablet (1 source) Proton Pump Inhibitor Start: 07-31-2023 pantoprazole 40 mg oral enteric coated tablet Dose : 40 mg = 1 tab(s), Oral, qDay, # 30 tab(s), 0 Refill(s), [facility]: [id number], 170.3, cm, 07/31/23 10:27:00 EDT, Height, kg, 07/31/23 10:27:00 EDT, Dosing Weight Start Date: 07/31/23 Status: Ordered promethazine hydrochloride 25 mg oral tablet (12 sources) Phenothiazine Start: 10-02-2021 take 25 mg by mouth three times daily Promethazine Active 25 MG PO THREE TIMES A DAY October 02, 2021 3:19pm Start: 07-16-2017 End: 07-23-2017 take 1 tablet by mouth four times daily as needed PROMETHAZINE HCL 25 MG TABS One tablet by mouth four times daily as needed PROMETHAZINE HCL [id number] Morgan Redd MD levothyroxine sodium 0.125 mg oral tablet (20 sources) l-Thyroxine Start: 05-26-2023 End: 11-22-2023 levothyroxine 125 mcg (0.125 mg) oral tablet Dose : 125 mcg = 1 tab(s), Oral, qDay, # 30 tab(s), 5 Refill(s), [facility]acy: [facility] #[id number], 167, cm, 05/26/23 7:24:00 EDT, Height, kg, 05/26/23 7:24:00 EDT, Dosing Weight Start Date: 05/26/23 Stop Date: 11/22/23 Status: Ordered Start: 11-25-2022 End: 05-24-2023 levothyroxine 125 mcg (0.125 mg) oral tablet Dose : 125 mcg = 1 tab(s), Oral, qDay, # 30 tab(s), 5 Refill(s), [facility]acy: [facility] #[id number], 167.3, cm, 11/25/22 14:51:00 EST, Height, kg, 11/25/22 14:51:00 EST, Dosing Weight Start Date: 11/25/22 Stop Date: 05/24/23 Status: Ordered Start: 05-27-2021 End: 02-21-2022 levothyroxine 125 mcg (0.125 mg) oral tablet Dose : 125 mcg = 1 tab(s), Oral, qDay, # 90 tab(s), 2 Refill(s), [facility]: [id number], Hypothyroidism, 170, cm, 05/27/21 15:43:00 EDT, Height, kg, 05/27/21 15:43:00 EDT, Dosing Weight Start Date: 05/27/21 Stop Date: 02/21/22 Status: Ordered Start: 05-27-2021 take 1 tablet by francesca th once daily levothyroxine (SYNTHROID) 125 mcg tablet Take 125 mcg by mouth once daily. 0 05/27/2021 Active Start: 10-25-2020 Levothyroxine 100 MCG tablet Active 125 ug PO daily October 25, 2020 3:53pm Start: 10-25-2020 take 125 ug by mouth once daily Levothyroxine Active 125 MCG PO daily October 25, 2020 3:53pm Start: 10-25-2020 take 112 ug by mouth once daily Levothyroxine Active 112 MCG PO daily October 25, 2020 3:53pm Start: 03-11-2018 End: 10-25-2020 take 1 tablet by mouth once daily Levothyroxine 100 mcg tablet Discontinued 100 ug PO daily March 11, 2018 12:00am October 25, 2020 3:53pm Start: 07-16-2017 End: 07-23-2017 take 1 tablet by mouth once daily LEVOTHYROXINE SODIUM 88 MCG TABS One tablet by mouth daily LEVOTHYROXINE SODIUM [id number] Amirah Hernandez RN Comment on above: Take 125 mcg by mout h once daily. vancomycin 125 mg oral capsule (1 source) Glycopeptide Antibacterial Start: 05-07-2023 End: 05-17-2023 vancomycin 125 mg oral capsule Dose : 125 mg = 1 cap(s), Oral, q6h, X 10 day(s), # 40 cap(s), 0 Refill(s), 05/17/23 15:10:00 EDT, [id number], 167.3, cm, 05/07/23 8:05:00 EDT, Height, 79.9 Start Date: 05/07/23 Stop Date: 05/17/23 Status: Ordered Completed/Discontinued Medications Medication Drug Class(es) Dates Sig (Normalized) Sig (Original) acetaminophen 250 mg / aspirin 250 mg / caffeine 65 mg oral tablet (6 sources) Nonsteroidal Anti-inflammatory Drug, Central Nervous System Stimulant, Methylxanthine Start: 07-16-2017 EXCEDRIN EXTRA STRENGTH 250-250-65 MG TABS As needed ASPIRIN-ACETAMINO PHEN-CAFFEINE [id number] Amirah Hernandez RN Start: 07-16-2017 EXCEDRIN EXTRA STRENGTH 250-250-65 MG TABS As needed [id number] Amirah Hernandez RN acetaminophen 325 mg / HYDROcodone bitartrate 5 mg oral tablet (5 sources) Opioid Agonist Start: 02-06-2019 End: 02-09-2019 Hydrocodone-Acetaminophen 1 TABLET tablet Discontinued 1 {tbl} PO EVERY 6 HOURS NEEDED as needed for Pain 10 February 06, 2019 12:00am February 08, 2019 12:00am February 09, 2019 12:09am Start: 02-06-2019 End: 02-09-2019 take 1 tablet by mouth every six hours as needed Hydrocodone-Acetaminophen Discontinued 1 TABLET PO EVERY 6 HOURS NEEDED 10 February 06, 2019 12:00am February 09, 2019 12:09am aspirin 81 mg delayed release oral tablet (4 sources) Nonsteroidal Anti-inflammatory Drug Start: 07-23-2017 take 1 tablet by mouth once daily ASPIRIN EC 81 MG TBEC One tablet by mouth daily ASPIRIN [id number] Morgan Redd MD Brompheniramine -Pseudoeph-Dm (Bromfed Dm) 2-30-10 mg/5 mL syrup (2 sources) Start: 03-22-2025 End: 04-01-2025 take 1 mL by mouth every four to six hours as needed Brompheniramine-Ps eudoeph-Dm (Bromfed Dm) 2-30-10 mg/5 mL syrup Discontinued 10 mL PO EVERY 4-6 HOURS as needed for cold symptoms March 22, 2025 12:00am April 01, 2025 8:36am Start: 03-22-2025 take 1 mL by mouth every four to six hours as needed Xczhwxgzoqihvid-Yruisafzp-Ak (Bromfed Dm ) 2-30-10 mg/5 mL syrup Active 10 mL PO EVERY 4-6 HOURS as needed for cold symptoms March 22, 2025 12:00am cephalexin 500 mg oral capsule (5 sources) Cephalosporin Antibacterial Start: 02-06-2019 End: 10-02-2019 take 1 capsule by mouth every six hours Cephalexin 500 MG capsule Discontinued 500 mg PO EVERY 6 HOURS 40 February 06, 2019 12:00am October 02, 2019 11:02am cyclobenzaprine hydrochloride 5 mg oral tablet (10 sources) Muscle Relaxant Start: 07-16-2017 End: 07-23-2017 take 1 tablet by mouth three times daily as needed CYCLOBENZAPRINE HCL 5 MG TABS One tablet by mouth three times daily as needed CYCLOBENZAPRINE HCL [id number] Amirah Hernandez RN dicyclomine hydrochloride 10 mg oral capsule (1 source) Anticholinergic Start: 07-31-2023 End: 08-07-2023 dicyclomine 10 mg oral capsule Dose : 10 mg = 1 cap(s), Oral, QID, # 28 cap(s), 0 Refill(s), Pharmacy: [id number], 170.3, cm, 07/31/23 10:27:00 EDT, Height, kg, 07/31/23 10:27:00 EDT, Dosing Weight Start Date: 07/31/23 Stop Date: 08/07/23 Status: Ordered fluconazole 200 mg oral tablet (5 sources) Azole Antifungal Start: 10-03-2017 End: 03-11-2018 take 1 tablet by mouth once daily Fluconazole 200 MG tablet Discontinued 200 mg PO DAILY October 03, 2017 1:00am March 11, 2018 8:35am ketoconazole 20 mg/ml topical cream (1 source) Azole Antifungal Start: 06-12-2023 ketoconazole (NIZORAL) 2 % cream Apply twice daily to affected areas 60 g 2 06/12/2023 Active Comment on above: Apply twice daily to affected areas levoFLOXacin 500 mg oral tablet (5 sources) Quinolone Antimicrobial Start: 10-03-2017 End: 03-11-2018 take 1 tablet by mouth once daily Levofloxacin 500 MG tablet Discontinued 500 mg PO DAILY October 03, 2017 1:00am March 11, 2018 8:35am methylPREDNISolone 4 mg oral tablet (2 sources) Corticosteroid Start: 03-22-2025 End: 04-01-2025 take 1 tablet by mouth once Methylprednisolone (Medrol (Favian)) 4 mg tablets,dose pack Discontinued 0 PO per package directions March 22, 2025 12:00am April 01, 2025 8:36am PO PER PKG DIR nystatin [id number] unt/ml topical cream (5 sources) Polyene Antifungal Start: 10-03-2017 End: 03-11-2018 Nystatin 15 GM cream Discontinued 15 g TP THREE TIMES A DAY October 03, 2017 1:00am March 11, 2018 8:35am ondansetron 4 mg disintegrating oral tablet (9 sources) Serotonin-3 Receptor Antagonist Start: 07-31-2023 End: 08-30-2023 ondansetron 4 mg oral tablet, disintegrating Dose : 4 mg = 1 tab(s), Oral, q6h, # 40 tab(s), 2 Refill(s), Pharmacy: [facility] #[id number], 170.3, cm, 07/31/23 10:27:00 EDT, Height, kg, 07/31/23 10:27:00 EDT, Dosing Weight Start Date: 07/31/23 Stop Date: 08/30/23 Status: Ordered Start: 09-29-2021 End: 12-25-2022 take 1 tablet by mouth every six hours ondansetron orally disintegrating (ZOFRAN ODT) 4 mg disintegrating tablet dissolve 1 to 2 tablets ON TONGUE every 6 hours if needed for nausea 0 09/29/2021 Active Start: 10-03-2017 End: 03-11-2018 take 1 tablet by mouth every four hours as needed for nausea Ondansetron 4 MG tablet,disintegrating Discontinued 4 mg PO EVERY 4 HOURS NEEDED as needed for Nausea October 03, 2017 9:12pm March 11, 2018 8:35am Comment on above: dissolve 1 to 2 tabl ets ON TONGUE every 6 hours if needed for nausea 24 hr verapamil hydrochloride 120 mg extended release oral capsule (9 sources) Calcium Channel Elsa Start: 8 End: 8 take 1 capsule by mouth once daily Verapamil 120 mg capsule,ext rel. pellets 24 hr Discontinued 120 mg PO daily November 23, 2017 1:00am August 23, 2018 1:10pm Start: 07-23-2017 take 1 tablet by francesca th once daily VERAPAMIL HCL ER 120 MG CR-TABS One tablet by mouth daily VERAPAMIL HCL [id number] Morgan Redd MD Vitamin D3 25 mcg (1000 intl units) oral tablet (1 source) Start: 05-26-2023 End: 06-25-2023 Vitamin D3 25 mcg (1000 intl units) oral tablet Dose : 1,000 International_Unit = 1 tab(s), Oral, qDay, OTC, # 30 tab(s), 0 Refill(s), other reason (Rx), Vitamin D deficiency Start Date: 05/26/23 Stop Date: 06/25/23 Status: Ordered Problems Active Problems Problem Classification Problem Date Documented Da te Episodic/Chronic Abdominal pain (1 source) Abdominal pain 07-03-2023 Episodic Acute bronchitis (2 sources) Acute bronchitis; Translations: [Acute bronchitis, unspecified] 03-22-2025 Episodic Cardiac dysrhythmias (12 sources) Atrial fibrillation; Translations: [Unspecified atrial fibrillation] 02-09-2019 Chronic Headache; including migraine (3 sources) Migraine 10-07-2019 Chronic Headache; including migraine (5 sources) Headache; Translations: [Headache] 10-26-2020 Episodic Heart valve disorders (14 sources) Mitral valve prolapse; Translations: [Nonrheumatic mitral (valve) prolapse] Onset: 07-16-2017 07-16-2017 Chronic Immunizations and screening for infectious disease (6 sources) Patient encounter status; Translations: [Encounter for screening for COVID-19] 09-22-2021 Episodic Malaise and fatigue (5 sources) Fatigue; Translations: [Other fatigue] 02-09-2019 Episodic Nausea and vomiting (6 sources) Nausea; Translations: [Nausea] 10-10-2021 Episodic Noninfectious gastroenteritis (1 source) Chronic diarrhea 07-31-2023 Episodic Nonspecific chest pain (5 sources) Chest pain; Translations: [Chest pain, unspecified] 02-09-2019 Episodic Nutritional deficiencies (3 sources) Vitamin D deficiency 10-07-2019 Chronic Other and unspecified benign neoplasm (1 source) Multiple benign melanocytic nevi ; Translations: [Melanocytic nevi, unspecified] 06-12-2023 Episodic Other and unspecified benign neoplasm (1 source) Senile angioma; Translations: [Hemangioma of skin and subcutaneous tissue] 06-12-2023 Episodic Other and unspecified benign neoplasm (1 source) Melanocytic nevi, unspecified; Translations: [Multiple benign nevi] Onset: 06-12-2023 Episodic Other and unspecified benign neoplasm (1 source) Hemangioma of skin and subcutaneous tissue; Translations: [Graf angioma] Onset: 06-12-2023 Episodic Other circulatory disease (3 sources) H/O: atrial fibrillation 05-27-2021 Episodic Other gastrointestinal disorders (1 source) Irritable bowel syndrome 07-31-2023 Chronic Other inflammatory condition of skin (1 source) Intertrigo; Translations: [Erythema intertrigo] 06-12-2023 Episodic Other inflammatory condition of skin (1 source) Erythema intertrigo; Translations: [Intertrigo] Onset: 06-12-2023 Episodic Other injuries and conditions due to external causes (1 source) Other injury of unspecified body region, initial encounter; Translations: [Soft tissue avulsion] Onset: 12-25-2022 Episodic Other lower respiratory disease (5 sources) Dyspnea on exertion; Translations: [Dyspnea, unspecified] 02-09-2019 Episodic Other nutritional; endocrine; and metabolic disorders (1 source) Overweight in adulthood with body mass index of 25 or more but less than 30 05-26-2023 Episodic Other screening for suspected conditions (not mental disorders or infectious disease) (6 sources) Full blood count abnormal; Translations: [Other specified abnormal findings of blood chemistry] Onset: 06-12-2023 02-09-2019 Episodic Other skin disorders (1 source) Skin lesion; Translations: [Disorder of the skin and subcutaneous tissue, unspecified] Episodic Other skin disorders (1 source) Lentiginosis; Translations: [Other melanin hyperpigmentation] 06-12-2023 Episodic Other skin disorders (1 source) Seborrheic keratosis; Translations: [Other seborrheic keratosis] 06-12-2023 Episodic Other skin disorders (1 source) Actinic keratosis; Translations: [Actinic keratosis] 07-13-2023 Episodic Other skin disorders (1 source) Actinic keratosis; Translations: [Actinic keratosis] Onset: 06-12-2023 Episodic Other skin disorders (1 source) Other melanin hyperpigmentation; Translations: [Lentigines] Onset: 06-12-2023 Episodic Other skin disorders (1 source) Other seborrheic keratosis; Translations: [Seborrheic keratosis] Onset: 06-12-2023 Episodic Other upper respiratory infections (10 sources) Acute maxillary sinusitis; Translations: [Acute maxillary sinusitis, unspecified] 10-02-2019 Episodic Thyroid disorders (20 sources) Hypothyroidism; 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 Has a family physician but he is retiring and she did not feel as though he was able to help her. I direct her to Dr. Grossman for new patient appointment. Patient reports to endocrine nurse she is unhappy that I will not order various tests of her choice. She reports a long history of various episodes of stomach issues that come and go , as well as urinary issues. I am not able to give her the best work up or advise on these issues. Unclassified (3 sources) Cancer cervix screening status 10-01-2020 Unclassified (1 source) Exposure to 2019 novel coronavirus 09-19-2021 Unclassified (2 sources) History of SARS-CoV-2 10-01-2021 Unclassified (5 sources) Patient encounter status 12-02-2021 Unclassified (1 source) Non-smoker 05-26-2023 Viral infection (5 sources) Disease caused by 2019-nCoV; Translations: [COVID-19] 10-02-2021 Episodic Past or Other Problems Problem Classification Problem Date Documented Da te Episodic/Chronic Cardiac dysrhythmias (6 sources) Palpitations; Translations: [Palpitations] Onset: 07-16-2017 07-16-2017 Episodic Other gastrointestinal disorders (2 sources) Diarrhea, unspecified; Translations: [Diarrhea, unspecified] Onset: 05-07-2023 Episodic Other lower respiratory disease (6 sources) Dyspnea; Translations: [Dyspnea, unspecified] Onset: 07-16-2017 07-16-2017 Episodic Other nutritional; endocrine; and metabolic disorders (4 sources) Body mass index (BMI) 27.0-27.9, adult; Translations: [Body mass index (BMI) 27.0-27.9, adult] Onset: 07-23-2017 07-23-2017 Episodic Other skin disorders (1 source) Inflamed seborrheic keratosis; Translations: [Seborrheic keratosis, inflamed] Onset: 03-06-2023 Episodic Results Test Name Value Interpretation Reference Range Facility Urgent Care Visit Reporton 0 04-01-2025 Urgent Care Visit Report [facility] [address], [address] [place] [address] OFFICE VISIT Date of Service: 04/01/25 MR#: [id number] Acct: [id number] Name: LAURA RUVALCABA Rep #: [id number] : 1980 Provider: YANET Mathew Age/Sex: 44/F Location: [facility] Status: Signed Intake Vital Signs 03/21/25 17:13 04/01/25 08:29 Height 5 ft 7 in BP 102/60 Blood Pressure Location Rt brachial Position Sitting Respiration 15 Pulse 68 Pulse Source NIBP Temp 98.1 F Temp Source Oral Pulse Oximetry (%) 96 Oxygen Delivery Method room air Intake Visit Reasons: CONCERN FOR THRUSH Chief Complaint: cough, thrush Bender Hand Required: No Is patient in pain?: Yes Allergies Penicillins Adverse Reaction (Severe, Verified 04/01/25 08:36) Vomiting Medications ???Medication ???Instructions ???Recorded ???Confirmed ???Type levothyroxine 100 mcg tablet 125 mcg PO QDAY 10/25/20 02/11/23 History metoprolol succinate 25 mg 25 mg PO DAILY 02/11/23 02/11/23 H istory tablet,extended release 24 hr azithromycin 250 mg tablet See Rx Instructions PO .COMPLEX #6 04/01/25 04/01/25 Rx tabs nystatin 100,000 unit/mL oral 400,000 unit (4 mL) PO .every 6 04/01/25 Rx suspension hours 7 days #473 mL omeprazole 40 mg capsule,delayed 40 mg PO QDAY 42 days #42 caps 04/01/25 Rx release Is last menstrual period known: No Post menopausal: No Patient : No Have you fallen in the past year?: No Nurse's Note: cough x 3 weeks, has tried prednisone, cough meds, and inhaler all without relief. denies all other viral s/s. also c/o white painful tongue x 1 week after using a friends inhaler. concern for thrush. [facility] Medical History (Updated 04/01/25 @ 11:40 by YANET Varela) Acute bronchitis, unspecified Fatigue Abnormal CBC Chronic fatigue and malaise Atrial fibrillation Eczema Mitral valve prolapse Goiter Hypothyroidism (acquired) Premature ventricular contractions Hypothyroidism Chronic headaches Family History Mother Hypertension CAD (coronary artery disease) Social History Smoking Status: Never smoker alcohol intake: current alcohol intake frequency: holidays/special occasions only substance use type: does not use caffeine: Yes Type: coffee Number of servings: 2 HPI HPI Chief Complaint: cough, thrush Details: LAURA RUVALCABA, is a 44 F who presents to the office today for cough and ? thrush -seen here on 03/22 and was given oral steroid and cough medicine- states finished the full course of steroid pack- cough syrup and steroid did not help -cough is mostly dry- coughing every times she talks- making her muscles hurt -this started about 3 wks ago- the first 3 days with fever but none since -in past had runny nose and congestion but none at present -denies hx of reflux -was given an inhaler from a friend- unsure of the name- but believes had a steroid- used for about 3 days every 4 hours but did not help- feels since use her tongue is sore and has white coating -tried otc cough medicines -+ goiter - on levothyroxine- has had ultrasounds in past- but nothing recent- did see surgeon long time ago and they told her they were not going to do surgery ROS Const Constitutional: Positive for other (ROS negative x6 except what was placed in HPI) Exam Const General: cooperative, comfortable and no acute distress Orientation: alert, awake and oriented x3 HENMT Head: normal to inspection and normocephalic Ears: hearing grossly normal bilaterally, external ears normal and TM's normal bilaterally Nose: external nose normal, nares normal, nasal mucous membranes and turbinates normal and no nasal discharge Face and sinus: normal facial exam, sinuses nontender and face symmetric Mouth: oral mucosae normal, lip normal, oropharynx normal, moist mucous membranes and other (tongue + thrush ) Throat: posterior oropharynx normal, tonsils normal and uvula midline Neck Neck: normal visual inspection, full ROM and no lymphadenopathy Thyroid: diffusely enlarged and nontender Resp Effort Inspection: normal respiratory effort, able to speak in complete sentences and symmetric chest movement Auscultation: Bilateral: Clear to Auscultation, Left: Clear to Auscultation and Right: Clear to Auscultation Other: -dry cough heard through out exam occurred only when she was talking Cardio Rate: regular rate Rhythm: regular rhythm Heart Sounds: S1 normal and S2 normal GI Auscultation: normal bowel sounds Palpation: soft Skin General: no rashes or lesions noted and turgor normal Neuro General: patient alert, patient awake and patient oriented x3 Cog (more content not included)... Normal [facility] Urgent Care Visit Reporton 0 03-22-2025 Urgent Care Visit Report [facility] [address], [address] [place] [address] OFFICE VISIT Date of Service: 03/22/25 MR#: [id number] Acct: [id number] Name: LAURA RUVALCABA Rep #: [id number] : 1980 Provider: SULEIMAN Bauman Age/Sex: 44/F Location: [facility] Status: Signed Intake Vital Signs 02/11/23 04:15 03/21/25 17:13 03/22/25 17:18 Height 5 ft 7 in 5 ft 7 in BP 128/72 H Blood Pressure Location Lt brachial Position Sitting Respiration 15 Pulse 89 Pulse Source NIBP Temp 99.0 F Temp Source Oral Pulse Oximetry (%) 95 Oxygen Delivery Method room air Intake Visit Reasons: Cough Chief Complaint: COUGH Bender Hand Required: No Is patient in pain?: No Allergies Penicillins Adverse Reaction (Severe, Verified 03/22/25 17:18) Vomiting Is last menstrual period known: No Post menopausal: No Patient : No Have you fallen in the past year?: No Nurse's Note: cough with intermittent mucus since viral illness over 1 week ago. denies fever, COELHO, BA, congestion, ST. PFSH Medical History (Updated 03/22/25 @ 17:23 by Abdiaziz BEARDEN, PA) Acute bronchitis, unspecified Fatigue Abnormal CBC Chronic fatigue and malaise Atrial fibrillation Eczema Mitral valve prolapse Goiter Hypothyroidism (acquired) Premature ventricular contractions Hypothyroidism Chronic headaches Family History Mother Hypertension CAD (coronary artery disease) Social History Smoking Status: Never smoker alcohol intake: current alcohol intake frequency: holidays/special occasions only substance use type: does not use caffeine: Yes Type: coffee Number of servings: 2 HPI HPI Chief Complaint: COUGH Details: LAURA RUVALCABA, is a 44 F who presents to the office today for initial evaluation approximately 1 week history of persistent intermittently moist clear productive cough without complaints of fever, chills, sweats, lightheadedness/dizzin ess, nausea/vomiting or chest pressure/shortness of breath/dyspnea on exertion/wheeze. No [id number] medications have been taken to assist. Non- smoker. No close contacts with similar complaints. Declining POC screening upon offering. No other associated symptoms and no other alleviating/aggravatin g factors. ROS Const Constitutional: No other (As above) Exam Const General: cooperative, healthy appearing and no acute distress Orientation: alert and awake HENMT Head: normal to inspection Ears: hearing grossly normal bilaterally, external ears normal, TM's normal bilaterally and EAC's normal Nose: external nose normal, nares normal, septum normal and no nasal discharge Face and sinus: normal facial exam, sinuses nontender and face symmetric Mouth: oral mucosae normal, lip normal, tongue normal, oropharynx normal and moist mucous membranes Throat: posterior oropharynx normal, tonsils normal, uvula midline and no postnasal drainage Eyes General: appearance normal, both eyes and all related structures Neck Neck: normal visual inspection, full ROM, no lymphadenopathy, no meningeal signs and supple Neck mass: No Thyroid: thyroid normal Lymphatic: no lymphadenopathy noted Chest Chest palpation inspection: normal inspection of the chest Resp Effort Inspection: normal respiratory effort, able to speak in complete sentences and no cough (No unsolicited cough during today's exam) Auscultation: Bilateral: Clear to Auscultation Cardio Palpation: normal PMI Rate: regular rate Rhythm: regular rhythm Heart Sounds: S1 normal, S2 normal, no gallops, no murmurs and no rubs Pulses: radial pulses present GI Inspection: normal to inspection Skin General: no rashes or lesions noted Neuro General: patient alert and patient awake Cognition: normal cognition Speech: speech normal Psych Appearance: grossly normal Mental Status: mental status grossly normal Mood: congruent mood Affect: normal affect Speech and Movement: speech and movement normal Attitude: cooperative Coding Level of Care Code Off vis,new,level 3 Diagnoses Acute bronchitis, unspecified J20.9 Assessment and Plan Assessment and Plan (1) Acute bronchitis, unspecified: Status: Acute Plan: - by history Medrol Dosepak and Bromfed-DM as prescribed today. Supportive measures as instructed today. Follow-up with PCP in 5 to 7 days should symptoms not improve, sooner should symptoms only worsen or any other concerns develop. Patient states acknowledging understanding all the above. This note was generated with Organizer dictation software. It may contain incorrect words, spelling, and punctuation that were not noted in checking the note before signing. Medications: New met (more content not included)... Normal [facility] T4 Free Directon 05-06-2024 T4 FREE DIRECT 1.05 ng/dL Normal 0.76-1.46 [facility] Comment on above: Performed By: #### L [id number], L506.0400 #### [facility] Laboratory [address] [place], [address] Thyroid Stim Hormone (TSH)on 05-06-2024 TSH 3.97 uIU/mL High 0.358-3.74 [facility] Comment on above: Performed By: #### L [id number], L506.0400 #### [facility] Laboratory [address] [place], [address] NM HEPATOBILIARY DUCT SYSTEM IMAGINGon 09-03-2023 NM HEPATOBILIARY DUCT SYSTEM IMAGING ORIGINAL EXAMINATION: HIDA111/03/2022 9:27 am TECHNIQUE: The patient received an intravenous injection of 5.2 mCi of Tc-99m mebrofenin (Choletec). Sequential planar images of the upper abdomen were then acquired over the next 60 minutes. An intravenous infusion of the cholecystokinin (CCK) analogue, Sincalide was then administered followed by an additional period of imaging. Computer quantification of gallbladder emptying was performed. COMPARISON: Abdominal ultrasound 09/06/2018. HISTORY: ORDERING SYSTEM PROVIDED HISTORY: Reason for Exam: pain and chronic diarrhea. Umbilical pain, nausea, diarrhea x2 years. FINDINGS: There is prompt accumulation of activity within the liver and normal subsequent excretion via the biliary ductal system into the small bowel. The gallbladder first visualizes at about 30 minutes after radiopharmaceutical injection and progressively fills. After stimulation, there is prompt contraction of the gallbladder with further anterograde transit of activity into the small bowel. The gallbladder ejection fraction is calculated to be 55 % (normal above 35%). IMPRESSION: 1. No findings to suggest acute or chronic cholecystitis. 2. Patent common bile duct. 3. Normal hepatic function. I have personally reviewed the images of this examination and agree with the resident's findings and interpretation. Interpreted by: Donavon Engle DO Preliminary Report By: Ramesh Perales Electronically signed By Donavon Engle DO Dictated Date: 09/03/2023 9:32:29 AM Prelim Date: 09/03/2023 10:27:36 AM Sign Date: 09/03/2023 10:27:36 AM Ordering Provider: MIS Gao [facility] ([place]) .Auto Diffon 07-03-2023 Basophil, Absolute 0.0 10 3/mcL Normal 0.0-0.2 [facility] [place] Comment on above: Performed By: #### C BC, GFR, ANEU, ADIFF, CMP #### [address] [address] Basophils/100 WBC (Bld) 0.8 % Normal 0.0-2.5 [facility] ([place] Comment on above: Performed By: #### C BC, GFR, ANEU, ADIFF, CMP #### [address] [address] Eosinophil, Absolute 0.0 10 3/mcL Normal 0.0-0.4 [facility] ([place]) Comment on above: Performed By: #### C BC, GFR, ANEU, ADIFF, CMP #### [address] [address] Eosinophils/100 WBC (Bld) 0.9 % Normal 0.0-7.0 [facility] ([place] Comment on above: Performed By: #### C BC, GFR, ANEU, ADIFF, CMP #### [address] [address] Lymphocyte, Absolute 1.9 10 3/mcL Normal 0.8-3.9 [facility] ([place] Comment on above: Performed By: #### C BC, GFR, ANEU, ADIFF, CMP #### [address] [address] Lymphocytes/100 WBC (Bld) 37.5 % Normal 10.0-50.0 [facility] ([place] Comment on above: Performed By: #### C BC, GFR, ANEU, ADIFF, CMP #### [address] [address] Monocyte, Absolute 0.4 10 3/mcL Normal 0.2-1.0 [facility] ([place] Comment on above: Performed By: #### C BC, GFR, ANEU, ADIFF, CMP #### [address] [address] Monocytes/100 WBC (Bld) 8.1 % Normal 1.7-13.0 [facility] ([place] Comment on above: Performed By: #### C BC, GFR, ANEU, ADIFF, CMP #### [address] [address] Neutrophils/100 WBC (Bld) 52.7 % Normal 37.0-80.0 [facility] ([place] Comment on above: Performed By: #### C BC, GFR, ANEU, ADIFF, CMP #### [address] [address] .GFRon 07-03-2023 GFR Non- 96 ml/min/1.73sqm Normal [facility] ([place] Comment on above: Result Comment: GFR Population mean for , Non- Americans Ages 20-29 = 116 mL/min/1.73 sq.m. Ages 30-39 = 107 mL/min/1.73 sq.m. Ages 40-49 = 99 mL/min/1.73 sq.m. Ages 50-59 = 93 mL/min/1.73 sq.m. Ages 60-69 = 85 mL/min/1.73 sq.m. Ages 70+ = 75 mL/min/1.73 sq.m. Chronic Kidney Disease: Less than 60 mL/min/1.73 square meters End Stage Renal Disease: Less than 15 mL/min/1.73 square meters Performed By: #### C BC, GFR, ANEU, ADIFF, CMP #### [place] [address] GFR 116 ml/min/1.73sqm Normal [facility] ([place] Comment on above: Result Comment: GFR Population mean for , Non- Americans Ages 20-29 = 116 mL/min/1.73 sq.m. Ages 30-39 = 107 mL/min/1.73 sq.m. Ages 40-49 = 99 mL/min/1.73 sq.m. Ages 50-59 = 93 mL/min/1.73 sq.m. Ages 60-69 = 85 mL/min/1.73 sq.m. Ages 70+ = 75 mL/min/1.73 sq.m. Chronic Kidney Disease: Less than 60 mL/min/1.73 square meters End Stage Renal Disease: Less than 15 mL/min/1.73 square meters Performed By: #### C BC, GFR, ANEU, ADIFF, CMP #### [place] [address] .NEUABSon 07-03-2023 Neutrophil, Absolute 2.7 10 3/mcL Low 2.9-6.2 [facility] ([place] Comment on above: Performed By: #### C BC, GFR, ANEU, ADIFF, CMP #### [place] [address] CBCon 07-03-2023 Erythrocyte distribution width (RBC) [Ratio] 13.9 % Normal 11.5-14.5 [facility] ([place] Comment on above: Performed By: #### C BC, GFR, ANEU, ADIFF, CMP #### [place] [address] Hematocrit (Bld) [Volume fraction] 37.4 % Normal 37.0-47.0 [facility] [place] Comment on above: Performed By: #### C BC, GFR, ANEU, ADIFF, CMP #### [place] [address] Hgb 12.2 G/dL Normal 12.0-16.0 [facility] [place] Comment on above: Performed By: #### C BC, GFR, ANEU, ADIFF, CMP #### [place] [address] MCH (RBC) [Entitic mass] 27.9 pg Normal 27.0-31.2 [facility] [place] Comment on above: Performed By: #### C BC, GFR, ANEU, ADIFF, CMP #### [place] [address] MCHC 32.5 G/dL Low 33.0-37.0 [facility] [place] Comment on above: Performed By: #### C BC, GFR, ANEU, ADIFF, CMP #### [place] [address] MCV (RBC) [Entitic vol] 85.7 fL Normal 80.0-94.0 [facility] [place] Comment on above: Performed By: #### C BC, GFR, ANEU, ADIFF, CMP #### [place] [address] Platelet 316 10 3/mcL Normal 130-400 [facility] [place] Comment on above: Performed By: #### C BC, GFR, ANEU, ADIFF, CMP #### [place] [address] Platelet mean volume (Bld) [Entitic vol] 9.1 fL Normal 7.4-10.4 [facility] ([place] Comment on above: Performed By: #### C BC, GFR, ANEU, ADIFF, CMP #### [place] [address] RBC 4.36 10 6/mcL Normal 4.20-5.40 [facility] [place] Comment on above: Performed By: #### C BC, GFR, ANEU, ADIFF, CMP #### [place] [address] WBC 5.1 10 3/mcL Normal 4.6-10.8 [facility] [place] Comment on above: Performed By: #### C BC, GFR, ANEU, ADIFF, CMP #### [place] [address] CMPon 07-03-2023 Albumin Level 4.0 G/dL Normal 3.5-5.0 [facility] [place] Comment on above: Performed By: #### C BC, GFR, ANEU, ADIFF, CMP #### [place] [id number] Albumin/Globulin [Mass ratio] 1.3 {ratio} Normal 1.1-2.5 [facility] ([place] Comment on above: Performed By: #### C BC, GFR, ANEU, ADIFF, CMP #### [place] [id number] ALP [Catalytic activity/Vol] 71 U/L Normal 40-135 [facility] [place] Comment on above: Performed By: #### C BC, GFR, ANEU, ADIFF, CMP #### [place] [id number] ALT [Catalytic activity/Vol] 22 U/L Normal 14-59 [facility] [place] Comment on above: Performed By: #### C BC, GFR, ANEU, ADIFF, CMP #### [place] [id number] AST [Catalytic activity/Vol] 12 U/L Normal 10-40 [facility] [place] Comment on above: Performed By: #### C BC, GFR, ANEU, ADIFF, CMP #### [place] [id number] Bili Total 0.4 mg/dL Normal 0.2-1.0 [facility] ([place] Comment on above: Result Comment: Use of this assay is not recommended for patients undergoing treatment with eltrombopag due to the potential for falsely elevated results. Performed By: #### C BC, GFR, ANEU, ADIFF, CMP #### [place] [id number] BUN/Creatinine Ratio 15 ratio Normal 7-27 [facility] [place] Comment on above: Performed By: #### C BC, GFR, ANEU, ADIFF, CMP #### [place] [id number] Calcium [Mass/Vol] 9.7 mg/dL Normal 8.4-10.2 [facility] ([place] Comment on above: Performed By: #### C BC, GFR, ANEU, ADIFF, CMP #### [address] [address] Chloride [Moles/Vol] 107 mmol/L Normal 98-107 [facility] [place] Comment on above: Performed By: #### C BC, GFR, ANEU, ADIFF, CMP #### [address] [address] CO2 [Moles/Vol] 31 mmol/L High 22-29 [facility] ([place] Comment on above: Performed By: #### C BC, GFR, ANEU, ADIFF, CMP #### [address] [address] Creatinine [Mass/Vol] 0.67 mg/dL Normal 0.55-1.02 [facility] ([place] Comment on above: Performed By: #### C BC, GFR, ANEU, ADIFF, CMP #### [address] [address] Electrolyte Balance 6.0 mEq/L Normal 4.0-15.0 [facility] ([place]) Comment on above: Performed By: #### C BC, GFR, ANEU, ADIFF, CMP #### [address] [address] Globulin 3.0 G/dL Normal [facility] [place] Comment on above: Performed By: #### C BC, GFR, ANEU, ADIFF, CMP #### [address] [address] Glucose [Mass/Vol] 91 mg/dL Normal 70-105 [facility] ([place] Comment on above: Performed By: #### C BC, GFR, ANEU, ADIFF, CMP #### [address] [address] Potassium [Moles/Vol] 4.4 mmol/L Normal 3.5-5.1 [facility] ([place] Comment on above: Performed By: #### C BC, GFR, ANEU, ADIFF, CMP #### [address] [address] Sodium [Moles/Vol] 144 mmol/L Normal 136-145 [facility] ([place] Comment on above: Performed By: #### C BC, GFR, ILYA, CHANDLER, CMP #### [address] [address] Total Protein 7.0 G/dL Normal 6.4-8.2 [facility] ([place] Comment on above: Performed By: #### C BC, GFR, ANEU, ADASHLEY, CMP #### [address] [address] Urea nitrogen [Mass/Vol] 10 mg/dL Normal 7-18 [facility] ([place] Comment on above: Performed By: #### C BC, GFR, ANEU, ADASHLEY, CMP #### [address] [address] CNOVon 06-12-2023 CNOV Office Visit (DERMMN ) LAURA RUVALCABA ([id number]) 1980 [facility] Date Time Provider Department 06/12/23 8:00 AM BREANNA JONES DERMMN During your visit today, we recorded the following information about you: Breanna Jones MD 07/13/2023 10:12 AM Signed EST PATIENT LV: 03/06/23 CHIEF COMPLAINT: FBSE HISTORY OF PRESENT ILLNESS: Laura Ruvalcaba is a 42 year old female here for evaluation of full body skin exam. 1) Full body skin exam -Denies any lesions of concern today 2) Lesion for monitoring follow-up Location: left cheek Changes in appearance: denies Symptoms: denies itching, bleeding or tenderness -2.1 x 1.5 cm Light brown patch on the L cheek with peppering on the superior peripheral edge on dermoscopy (favor inflamed seborrheic keratosis) Pt has h/o BV and has been unable to treat, due to risk of Cdiff infection. 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 No current facility-administered medications for this visit. PHYSICAL EXAM: General: awake, alert, no acute distress Neuropsych: appropriate mood and affect Skin: Skin exam was performed today including the following: head and face, scalp, neck, chest, abdomen, buttocks, back, bilateral upper extremities, bilateral lower extremities, hands, feet, digits, nails. Pertinent findings include: Lentigines: Densely scattered light abrams macules noted on all sun exposed areas Angiomas: Small graf red papules scattered throughout the trunk and extremities Seborrheic keratoses: Brown stuck on plaques throughout the trunk AND extremities Benign nevi: regular and symmetric pigmented macules and papules scattered throughout the trunk and extremities - On left cheek, 2.1 x 1.5 cm Light brown patch with less peppering on the superior peripheral edge on dermoscopy, overlying scale (favor pigmented AK) - On the right cheek, there is a abrams macule c/w solar lentigo - On right cheekbone, there is a scaly erythematous papule c/w AK -Umbilicus with moist erythematous and fissured patch -Gluteal cleft and medial buttocks with moist erythematous patches and central fissuring -Labial mucosa with white discharge and erythematous fissures ASSESSMENT AND PLAN: Left cheek - favor pigmented AK Actinic keratosis, right cheekbone -For lesion on left cheek favor pigmented AK. Also considered inflamed seborrheic keratosis. Do not favor atypical melanocytic lesion. Discussed option for biopsy for definitive diagnosis, however risk for permanent scarring. - Less peppering from prior photo 03/06/23 - Discussed premalignant etiology of actinic keratosis - Recommended LN2 and discussed risks and benefits - Discussed side effects including redness, swelling, crusting, and discoloration after treatment, wound care with soap/water and vaseline - Procedure Note Cryosurgery of pre-malignant lesion(s) Risks, benefits, alternatives, complications, and personnel required for cryosurgery reviewed with patient. Specifically, the risks of permanent scar, loss or darkening of skin color, blister, incomplete treatment, and recurrence of lesion were discussed. Patient verbalizes understanding and wishes to proceed. - Cryosurgery performed with Liquid Nitrogen via cryostat spray gun to Actinic Keratosis . 2 lesion(s) treated. - Patient tolerated well and wound care discussed. Return if lesions fails to fully resolve. Clinically benign-appearing skin lesions including: lentigines, benign appearing nevi, seborrheic keratoses, graf hemangiomas -Reassurance provided regarding the benign nature of these lesions -Recommend monthly self skin exam. Return for new, changing or otherwise concerning skin lesions. -Recommend daily sun protection with broad-spectrum sunscreen SPF 30+, avoidance of sun during peak hours, and sun protective clothing. #Intertrigo - Start ketoconazole 2% cream twice daily x 2 weeks to gluteal cleft and umbilicus - Advised patient to stop applying clobetasol to th (more content not included)... Normal [facility] CDIFFAOon 05-07-2023 Clostridium difficile toxin A/B PCR Negative Normal Negative [facility] ([place]) Comment on above: Performed By: #### C DIFFAO #### [facility] [place] [id number] Clostridium difficile toxin A/B PCR Int Normal [facility] [place] Comment on above: Result Comment: Miah ryan C. difficile Negative result does not rule out the possibility of infection with toxigenic C. difficile. Mack C. difficile Assay results should not be used as the sole basis for diagnosis, treatment, or patient management decisions and should be interpreted in conjunction with other clinical and laboratory findings. See Below Performed By: #### C DIFFAO #### [facility] [address] [address] LABORATORYOrdered By: Katiana Reed on 05-07-2023 C. difficile toxin A+B tcdA+tcdB genes GARIMA+probe Ql (Stl) Negative *NA* (05/07/23 10:11 AM) Invalid Interpretation Code Negative AO Auto Urine SS Clostridium difficile toxin A/B PCR Int Mack C. difficile Negative result does not rule out the possibility of infection with toxigenic C. difficile. Mack C. difficile Assay results should not be used as the sole basis for diagnosis, treatment, or patient management decisions and should be interpreted in conjunction with other clinical and laboratory findings. Invalid Interpretation Code AO Auto Urine SS CNOVon 03-06-2023 CNOV Office Visit (DERMMN ) LAURA RUVALCABA ([id number]) 1980 [facility] Date Time Provider Department 03/06/23 1:40 PM BREANNA JONES DERMMN During your visit today, we recorded the following information about you: Breanna Jones MD 03/30/2023 12:19 AM Signed NEW PATIENT CHIEF COMPLAINT: pigmentation on face HISTORY OF PRESENT ILLNESS: Laura Ruvalcaba is a 42 year old female with a PMH of hypothyroidism here for evaluation of pigmented areas on face. Patient first noticed lesion around 2 years ago which has been changing in size but uncertain if color has changed. Denies itchiness or pain . Dad had skin cancer and pancreatic cancer, uncertain if skin cancer was melanoma. HPI: pigmented areas Location: left cheek Duration: a few years, new spot spot growing over unknown amount of time Appearance (size, shape, color): darkened area on left cheek Symptoms (growing, itching, bleeding, tender): denies Modifying factors: None Current treatment: None Past treatments: None Personal Dermatologic History History of skin cancer: No History of atypical nevi: No History of chronic skin disease: Yes psoriasis History of allergic rhinitis / asthma: No History of hypothyroidism Family History History of skin cancer: Yes father had skin cancer, unsure what kind History of chronic skin disease: Yes father with psoriasis History autoimmune diseases: No Social History Tobacco use: No EtOh use: Yes rarely 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 No current facility-administered medications for this visit. PHYSICAL EXAM: General: awake, alert, no acute distress Neuropsych: appropriate mood and affect Skin: Skin exam was performed today including the following: face. Pertinent findings include: -2.1 x 1.5 cm Light brown patch on the L cheek with peppering on the superior peripheral edge on dermoscopy (favor inflamed seborrheic keratosis) ASSESSMENT AND PLAN: #Lesion for monitoring: Light brown patch on the L cheek #Ddx inflamed seborrheic keratosis vs solar lentigo vs pigmented actinic keratosis (less likely). Do not favor atypical melanocytic lesion. -We had an extensive discussion with the patient regarding the need for continued surveillance of the lesion(s) listed above for monitoring. As explained during today's visit, the lesion(s) do not reflect, at this point, a level of concern that will tho the need of a skin biopsy. The patient was in agreement with the monitoring approach. However, it will require the commitment from the patient to watch for future changes and to be seen at the proposed follow-up visit for re-evaluation of the lesion, or earlier in case of any concerning changes. - Advised diligent sun protection and use of sunscreen SPF 30 and above. - The ABCDEs of melanoma were reviewed with the patient and the importance of monthly self-examination of moles was emphasized. - Should spot of concern changes in color, itch, bleed, or burn, patient will contact the office for evaluation sooner than their interval appointment. - Photos today - In reserve: biopsy Return to Dermatology clinic in 3 months (lesion monitoring and FBSE) or sooner Wilton Dallas MD Dermatology Resident The documentation for this note was completed by Padmini Hertz, RN acting as scribe for Breanna Jones MD. March 06, 2023 1:31 PM. Attestation: I agree with the Chief Complaint, ROS, and Past Histories independently gathered by the clinical operations support professionals, and the remaining scribed note accurately describes my personal service to the patient. I saw and evaluated Laura Ruvalcaba, as well as developed and discussed the assessment and plan with the Resident. I have reviewed the Resident's note and agree with the history and physical examination as described, as well as the assessment and plan of care. The resident's note was annotated by me as needed to reflect my direct input. There were no procedures performed during this patient's visit. MD Breanna Pérez MD 03/06/2023 2:31 PM Addendum -Sunscreen (SPF 30 or higher) and sun protection reviewed. - The ABCDEs of melanoma were reviewed with the patient and the importance of monthly self-examination of moles was emphasized. - Should spot of concern changes in color, itch, bleed, or burn, patient will contact the office for evaluation sooner than th (more content not included)... Normal [facility] Absolute lymphocyte countOrd ered By: Dr. Sanchez on 02-11-2023 Lymphocytes Auto (Unsp spec) [#/Vol] 1.31 10*3/uL 0.83-4.51 [facility] Basophil percentageOrdered B y: Dr. Sanchez on 02-11-2023 Basophils/100 WBC (Bld) 1.0 % 0-1 [facility] Bilirubin [Mass/Vol] 0.20 mg/dL 0.20-1.00 [facility] Comment on above: For patients on eltr ombopag therapy, use of Dimension [facility] TBIL is not recommended. Chloride [Moles/Vol] 111 mmol/L 98-107 [facility] Eosinophils/100 WBC (Bld) 1.7 % 0-5 [facility] Glucose [Mass/Vol] 98 mg/dL 74-106 [facility] Neutrophils (Bld) [#/Vol] 2.4 10*3/uL 2.0-7.7 [facility] Neutrophils/100 WBC (Bld) 57.5 % 47-70 [facility] Potassium [Moles/Vol] 4.3 mmol/L 3.5-5.1 [facility] Comment on above: Moderate Hemolysis, Result may be falsely increased. Protein [Mass/Vol] 6.8 g/dL 6.4-8.2 [facility] Sodium [Moles/Vol] 139 mmol/L 136-145 [facility] WBC (Bld) [#/Vol] 4.2 10*3/uL 4.4-11.0 [facility] Blood erythrocytes count (nu mber/volume)Ordered By: Dr. Sanchez on 02-11-2023 RBC (Bld) [#/Vol] 4.41 10*6/uL 4.2-5.4 [facility] Blood hemoglobin measurement (mass/volume)Ordered By: Dr. Sanchez on 02-11-2023 Hemoglobin (Bld) [Mass/Vol] 12.9 g/dL 12.0-15.0 [facility] Blood lymphocytes/100 leukoc ytesOrdered By: Dr. Sanchez on 02-11-2023 Lymphocytes/100 WBC (Bld) 31.4 % 19-41 [facility] Blood monocytes/100 leukocyt esOrdered By: Dr. Sanchez on 02-11-2023 Monocytes/100 WBC (Bld) 8.2 % 0-10 [facility] Blood platelet mean volumeOr dered By: Dr. Sanchez on 02-11-2023 Platelet mean volume (Bld) [Entitic vol] 10.9 fL 6.2-12.0 [facility] Determination of erythrocyte mean corpuscular volume (MCV)Ordered By: Dr. Sanchez on 02-11-2023 MCV (RBC) [Entitic vol] 93.0 fL 81-99 [facility] Direct bilirubinOrdered By: Dr. Sanchez on 02-11-2023 Bilirubin.direct [Mass/Vol] 0.07 mg/dL 0.00-0.30 [facility] Hematocrit Auto (Bld) [Volum e fraction]Ordered By: Dr. Sanchez on 02-11-2023 Hematocrit (Bld) [Volume fraction] 41.0 % 37-47 [facility] Laboratory - Chemistry and C hemistry - challengeOrdered By: Dr. Sanchez on 02-11-2023 ALP [Catalytic activity/Vol] 58 U/L 45-117 [facility] ALT [Catalytic activity/Vol] 26 U/L 13-56 [facility] CO2 [Moles/Vol] 27.0 mmol/L 21.0-32.0 [facility] Globulin (S) [Mass/Vol] 3.0 g/dL 2.2-4.2 [facility] Lipase [Catalytic activity/Vol] 43 U/L 13-75 [facility] Comment on above: Please note:LIPASE r evised reference range effective 23. New Lipase methodology. Expected to produce lower values than the previous assay method. NEW Reference Range: 13 - 75 U/L Urea nitrogen/Creatinine [Mass ratio] 20.9 mg/mg 10-20 [facility] Laboratory - Hematology and Cell countsOrdered By: Dr. Sanchez on 02-11-2023 Erythrocyte distribution width (RBC) [Entitic vol] 45.4 fL 35.1-43.9 [facility] Erythrocyte distribution width (RBC) [Ratio] 13.2 % 11.6-14.6 [facility] Immature granulocytes/100 WBC (Bld) 0.200 % 0.0-0.9 [facility] Comment on above: IG% - Immature Granu locytes (promyelocytes, myelocytes and metamyelocytes) > 1% indicates that a LEFT SHIFT is Present. MCH (RBC) [Entitic mass] 29.3 pg 27.0-32.0 [facility] Nucleated RBC/100 WBC (Bld) [Ratio] 0 % 0-5 [facility] MCHC Auto (RBC) [Mass/Vol]Or dered By: Dr. Sanchez on 02-11-2023 MCHC (RBC) [Mass/Vol] 31.5 g/dL 32-36 [facility] No Panel InformationOrdered By: Dr. Sanchez on 02-11-2023 Troponin I High Sensitivity < 3 pg/mL 3.0-54.0 [facility] Comment on above: Please Note: New Mona t Units and Gender Specific Reference Ranges. For more information see Policy Stat Procedure [facility] High Sensitivity Troponin (TNIH) and attachments. Estimated Creatinine Clearance Calc 105.28 ml/min [facility] Estimated GFR (MDRD) Amer 123 mL/min >60 [facility] Comment on above: GFR Calc Estimated GFR (MDRD) Non-Af Amer 102 mL/min >60 [facility] Comment on above: Non- GFR Calc Platelets bldOrdered By: Dr. Sanchez on 02-11-2023 Platelets (Bld) [#/Vol] 302 10*3/uL 150-450 [facility] Serum or plasma albumin brenda urement (mass/volume)Ordered By: Dr. Sanchez on 02-11-2023 Albumin [Mass/Vol] 3.8 g/dL 3.2-5.0 [facility] Serum or plasma calcium brenda urement (mass/volume)Ordered By: Dr. Sanchez on 02-11-2023 Calcium [Mass/Vol] 9.3 mg/dL 8.5-10.1 [facility] Serum or plasma creatinine m easurement (mass/volume)Ordered By: Dr. Sanchez on 02-11-2023 Creatinine [Mass/Vol] 0.67 mg/dL 0.55-1.02 [facility] Comment on above: The validity of the calculated GFR & GFRAA in patients over 70 years has not been determined. Clinical correlation is essential. Serum or plasma urea nitroge n measurement (mass/volume)Ordered By: Dr. Sanchez on 02-11-2023 Urea nitrogen [Mass/Vol] 14 mg/dL 7-18 [facility] Thin prep Papanicolaou smear with manual screeningOrdered By: Dr. Sanchez on 02-11-2023 Thin prep Papanicolaou smear with manual screening 21 U/L 15-37 [facility] Comment on above: Moderate Hemolysis, Result may be falsely increased. Thin prep Papanicolaou smear with manual screening 1 5-15 [facility] ED NOTEon 12-25-2022 ED NOTE HNO ID: [id number] Author: Lucio Rae RN Service: ? Author Type: Registered Nurse Type: ED Notes Filed: 12/25/2022 12:40 PM Note Text: Bed: 45-ED Expected date: Expected time: Means of arrival: Comments: [facility] ED PROV NOTEon 12-25-2022 ED PROV NOTE HNO ID: [id number] Author: Galilea Larose PA-C Service: ? 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 HPI Laura Ruvalcaba is a 42 year old female who presents to the ED for right index finger laceration. She cut it on a blade. 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 Complaining of paresthesia along the tip of the right index finger. No blood thinner use. No other complaints. No other pertinent HPI ROS Review of Systems All other systems reviewed and are negative. All systems reviewed and negative except noted in HPI PAST MEDICAL HISTORY Diagnosis Date Mitral valve prolapse Septate uterus PAST SURGICAL HISTORY Procedure Laterality Date LAPAROSCOPY DIAGNOSTIC 06/11 endometriosis FAMILY HISTORY Problem Relation Age of Onset Diabetes Father borderline Hypertension Mother other (Other [Other]) Mother hysterectomy - unknown why to pt Heart Maternal Grandfather Diabetes Maternal Grandmother Social History Tobacco Use Smoking status: Never Smokeless tobacco: Never Substance and Sexual Activity Alcohol use: Yes Comment: occasionally Drug use: No Sexual activity: Yes Partners: Male control/protection: None ALLERGIES Allergen Reactions Penicillins Vomiting Shellfish Vomiting Records on file/review of medical records: Nursing/triage notes and assessments as well as vitals were reviewed and incorporated Records on file reviewed: N/A Physical Exam Vitals [12/25/22 1231] BP Pulse Temp Temp src Resp SpO2 Weight Height 102/55 57 36.6 ?C (97.8 ?F) Oral 18 98 % 77.1 kg (170 lb) 1.702 m (5' 7) Physical Exam General: alert, speaking in full sentences, does not appear ill HEENT: EOMI, eyes equal and reactive to light, no scleral injection or tearing, head and face atraumatic Chest: no respiratory distress, normal breath sounds throughout, Cardiac: no rubs, RRR Extremities: Radial pulse +2 in bilateral upper extremities. 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 FDP and FDS are intact to bilateral hands. Along the tip of the palmar aspect of the right index finger distal phalanx patient has a 3 mm superficial tissue avulsion. Irregular. No tendon, nerve or vascular involvement. No subungual hematoma. No nailbed involvement. Flexion is 5 out of 5 with fingers. Extension 5 out of 5. Capillary refill less than 2 seconds. Skin: warm, dry, no rashes Neuro: alert and oriented x 3, no lateralized deficits, no gross weakness. Patient is complaining of paresthesia along the wound edge. Otherwise equal sensation along medial, radial and ulnar nerve distributions otherwise. Psyc: normal mood/affect, normal judgment/memory Diagnostic Testing ED Labs Ordered and Reviewed - No data to display Radiology/images: No orders to display I reviewed images as well as radiologist interpretation(s) Procedures: Procedures ED Course / Clinical Impression Clinical Impressions as of 12/25/22 1304 Soft tissue avulsion - Right index finger Medications received in ED Medications bacitracin 500 unit/gram 1 Packet (has no administration in time range) Discharge Medications New Prescriptions No medications on file MDM / Disposition / Plan SEE ED COURSE FOR FURTHER MDM Vital signs reviewed. Patient's here for right index finger laceration. She cut it on a bleed. 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 Complaining of paresthesia around the tissue avulsion site. Nothing to suture here. There is also no need for Dermabond as patient has tissue avulsion and there is no flap of skin to tack down. Wound was irrigated bacitracin and dressing applied. I do not feel imaging is necessary at this time as I have low suspicion for acute osseous abnormality given superficial appearance of wound. I did instruct patient on wound care. She is complaining of paresthesias so we will give her hand follow-up if this does not resolve. She will return for any new or worsening symptoms. Patient will be discharged home. Disposition The patient was discharged. Counseled patient regarding suspected diagnosis. As well as the need for follow-up. Discharged home with verbal and written instructions. They were instructed to return as needed for persistent or worsening symptoms or any new concerns. SIGNATURE: Galilea Larose PA-C This document has been created with the use of voice recognition technology. Every effort was taken to correct for errors however it may contain inaccuracies, misspellings, syntax errors, or word sense that escaped review. Please inquire further with the author for clarification if needed. GALILEA LAROSE 12/25/22 1304 Normal [facility] Laboratory - Chemistry and C hemistry - challengeOrdered By: Ang Traore on 11-11-2022 Free T4 [Mass/Vol] 1.10 ng/dL 0.76-1.46 [facility] No Panel InformationOrdered By: Ang Traore on 11-11-2022 Thyroid Stimulating Hormone (TSH) 10.60 uIU/mL 0.358-3.74 [facility] Laboratory - Chemistry and C hemistry - challengeon 05-16-2022 Free T4 [Mass/Vol] 0.77 ng/dL 0.76-1.46 [facility] Work Phone: No Panel Informationon 05-16 Thyroid Stimulating Hormone (TSH) 12.50 uIU/mL 0.358-3.74 [facility] Work Phone: Laboratory - Chemistry and C hemistry - challengeon 02-11-2022 Free T4 [Mass/Vol] 0.51 ng/dL 0.76-1.46 [facility] Work Phone: No Panel Informationon 02-11 Free Triiodothyronine (T3) pg/dL 2.8 pg/mL 2.18-3.98 [facility] Work Phone: Thyroid Stimulating Hormone (TSH) 39.40 uIU/mL 0.358-3.74 [facility] Work Phone: Laboratory - Chemistry and C hemistry - challengeon 11-25-2021 Free T4 [Mass/Vol] 0.89 ng/dL 0.76-1.46 [facility] Work Phone: No Panel Informationon 11-25 Thyroid Stimulating Hormone (TSH) 4.72 uIU/mL 0.358-3.74 [facility] Work Phone: EMERGENCY REPORTon 1 EMERGENCY REPORT [facility] EMERGENCY ROOM REPORT NAME ACCOUNT SEX AGE ADMIT DISCHARGE PT MED. RECORD# NUMBER DATE DATE TYPE LAURA RUVALCABA [id number] F 41 09/29/21 09/29/21 3 [id number] ROOM: ER DATE OF : 1980 DICTATING PHYSICIAN: Sam Dunham CHIEF COMPLAINT: COVID-19 with vomiting and diffuse aching. HISTORY OF PRESENT ILLNESS: The patient states 8 days she began with COVID-19 symptoms. She has had a fever, generalized aching, but has developed increasing nausea and vomiting over the past couple of days. She has had persistent vomiting, some abdominal pain. She continues to have a very significant cough, though does not feel short of breath. She states that her abdominal pain is from coughing. She is feeling increasingly weak, a little bit dizzy and lightheaded, particularly when she gets up and moves around. The patient did test positive for COVID-19 about a week. She did get her first COVID-19 vaccine about a month ago, and would be due to get a booster this coming week. PAST MEDICAL HISTORY: Past medical history is significant for thyroid disease, otherwise no medical problems. PAST SURGICAL HISTORY: No previous surgeries. MEDICATIONS: She takes no medications presently. ALLERGIES: She is allergic to penicillin. SOCIAL HISTORY: She lives at home with , who accompanies her here. She does not smoke. She drinks alcohol occasionally. REVIEW OF SYSTEMS: No recent injury or trauma. No underlying heart or lung disease, bowel or bladder symptoms. PHYSICAL EXAMINATION: GENERAL: This is a 41-year-old female alert, appropriate, and appears uncomfortable, but not toxic. She is somewhat tearful. She does have a frequent dry cough, holding an emesis basin, but not actively vomiting. SKIN: Her skin is somewhat flushed, warm, and dry. HEENT: Essentially all within normal limits. NECK: Her neck is supple without JVD. LUNGS: Lungs are clear without crackles or wheezes. CARDIAC: Cardiac exam is regular rhythm, tachy rate without ectopy or murmurs. ABDOMEN: Abdomen is soft. She has mild diffuse tenderness and soreness, but no guarding or rebound. Normal bowel sounds. No guarding or rebound. No masses. EXTREMITIES: She moves all extremities appropriately with good peripheral pulses. Capillary refill is 1 to 2 seconds. No redness, tenderness, or asymmetry. VITAL SIGNS: Page 1 of 2 JORDON LAURA Emergency Room Report LAURA RUVALCABA : 1980 Blood pressure 107/83, pulse 121, respirations 18, and temperature 97.8. Her O2 saturation was 97%. DIAGNOSTIC DATA: Laboratory studies returned showing a CBC with a white count of 3500. Unremarkable differential. CMP is essentially all normal. Sodium is 138, potassium 3.4, BUN and creatinine 13 and 0.86. Normal liver enzymes. CRP was 0.6. EMERGENCY DEPARTMENT COURSE AND TREATMENT: The patient had an IV of normal saline placed. She was given 2 liters of saline and a liter of lactated ringers over the next several hours in the ED. I did give her a dose of Zofran, and repeated that later along with Protonix, which did help with her nausea. DIAGNOSIS: COVID-19 with cough and recurrent vomiting. PLAN/DISPOSITION: I discussed management with her. She states that she felt like the cough was a major problem causing more ongoing soreness and nausea. She was given a prescription for some Zofran, Tessalon and a small bottle of Hycodan for cough. I did give her a slip to be off work through this week. She is to followup with her family doctor in 2 to 3 days, returning if symptoms worsen. Dictated By: Sam Dunham MD 09/29/21 12:20 JOB #: [id number] Transcribed By: camila 09/30/21 14:06 Electronically signed by: LUDA Dunham M.D. 10/09/21 08:34 Page 2 of 2 LAURA RUVALCABA Emergency Room Report Normal [facility] C-REACTIVE PROTEINon 021 CRP 0.60 mg/dl Normal 0.00 - 0.90 [facility] Comment on above: Performed By: #### 2 [id number] #### [facility],[address] [place] [address]9525 CBC + DIFFon 09-29-2021 Baso # 0.00 x10EE3/UL Normal 0.00 - 0.10 [facility] Comment on above: Performed By: #### 2 [id number] #### [address] [address] Basophils/100 WBC (Bld) 0.6 % Normal 0.0 - 2.0 [facility] Comment on above: Performed By: #### 2 90527 #### [facility],[address] [place] [address] 15772 CBC + DIFF Normal [facility] Comment on above: Result Comment: CBC- COMPLETE BLOOD COUNT Performed By: #### 2 [id number] #### [facility],[address] [place] [address] 90909 EO # 0.00 x10EE3/UL Normal 0.00 - 0.50 [facility] Comment on above: Performed By: #### 2 26761 #### [facility],[address] [place] [address] 02977 Eosinophils/100 WBC (Bld) 0.0 % Normal 0.0 - 7.0 [facility] Comment on above: Performed By: #### 2 98033 #### [facility],[address] [place] [address] 47411 Erythrocyte distribution width (RBC) [Ratio] 13.3 % Normal 12.0 - 15.6 [facility] Comment on above: Performed By: #### 2 15977 #### [facility],[address] [place], [place] [id number] Hematocrit (Bld) [Volume fraction] 41.3 % Normal 34.0 - 46.0 [facility] Comment on above: Performed By: #### 2 05351 #### [facility],[address] [place] [address] 84423 Hemoglobin (Bld) [Mass/Vol] 13.9 g/dL Normal 12.0 - 16.0 [facility] Comment on above: Performed By: #### 2 77352 #### [facility],[address] [place] [address] 00185 Lymph # 0.90 x10EE3/UL Normal 0.80 - 2.80 [facility] Comment on above: Performed By: #### 2 68498 #### [facility],[address] [place] [address] 46904 Lymphocytes/100 WBC (Bld) 25.5 % Normal 20.0 - 45.0 [facility] Comment on above: Performed By: #### 2 40803 #### [facility],[address] [place] [address] MANUAL DIFF N/A Normal [facility] Comment on above: Performed By: #### 2 85747 #### [facility],[address] [place] [address] MCH (RBC) [Entitic mass] 29 pg Normal 27 - 33 [facility] Comment on above: Performed By: #### 2 31096 #### [facility],[address] [place] [address] MCHC 34 X10 3 Normal 32 - 36 [facility] Comment on above: Performed By: #### 2 98499 #### [facility],[address] [place] [address] MCV (RBC) [Entitic vol] 86 fL Normal 80 - 99 [facility] Comment on above: Performed By: #### 2 55972 #### [facility],[address] [place] [address] Union # 0.20 x10EE3/UL Normal 0.20 - 1.00 [facility] Comment on above: Performed By: #### 2 41182 #### [facility],[address] [place] [address] MONOS % 7.2 % Normal 0.0 - 10.0 [facility] Comment on above: Performed By: #### 2 84418 #### [facility],[address] [place] [address] Morphology Raymundo (Bld) [Interp] N/A Normal [facility] Comment on above: Result Comment: {CD] Performed By: #### 2 31022 #### [facility],[address] [place] [address] Neut # 2.30 x10EE3/UL Normal 1.50 - 7.10 [facility] Comment on above: Performed By: #### 2 31300 #### [facility],[address] [place] [address] Neutrophils/100 WBC (Bld) 66.7 % Normal 46.0 - 76.0 [facility] Comment on above: Performed By: #### 2 04496 #### [facility],[address] [place] [address] 45097 PLATELET 140 x10EE3/UL Low 150 - 450 [facility] Comment on above: Performed By: #### 2 16550 #### [facility],[address] [place] [address] 95882 Platelet mean volume (Bld) [Entitic vol] 9.7 fL Normal 6.6 - 10.5 [facility] Comment on above: Result Comment: AUTO MATED DIFFERENTIAL Performed By: #### 2 11466 #### [facility],[address] [place] [address] 35315 RBC 4.82 x 10EE6/UL Normal 4.10 - 5.30 [facility] Comment on above: Performed By: #### 2 99041 #### [facility],[address] [place] [address] 10570 WBC 3.5 x 10EE3/UL Low 4.5 - 10.8 [facility] Comment on above: Performed By: #### 2 13053 #### [facility],[address] [place] [address] 78928 CMP with eGFRon 09-29-2021 AGE 41 years Normal [facility] Comment on above: Performed By: #### 2 01660 #### [facility],[address] [place] [address] 41248 Albumin [Mass/Vol] 4.0 g/dL Normal 3.4 - 5.0 [facility] Comment on above: Performed By: #### 2 75114 #### [facility],[address] [place] [address] 03387 Albumin/Globulin [Mass ratio] 1.1 {ratio} Normal 0.9 - 1.6 [facility] Comment on above: Performed By: #### 2 31850 #### [facility],[address] [place] [address] 52730 ALK PHOS 57 U/L Normal 46 - 116 [facility] Comment on above: Performed By: #### 2 70820 #### [facility],[address] [place] [address] 38389 ALT [Catalytic activity/Vol] 22 U/L Normal 14 - 59 [facility] Comment on above: Performed By: #### 2 07638 #### [facility],[address] [place] [address] 07816 Anion gap [Moles/Vol] 14 mmol/L Normal 10 - 20 [facility] Comment on above: Performed By: #### 2 [id number] #### [facility],[address] [place] [address] 32065 AST [Catalytic activity/Vol] 16 U/L Normal 13 - 39 [facility] Comment on above: Performed By: #### 2 [id number] #### [facility],[address] [place] [address] 97370 B/C RATIO 15 ratio Normal 0 - 30 [facility] Comment on above: Performed By: #### 2 [id number] #### [facility],[address] [place] [address] 71183 Bilirubin [Mass/Vol] 0.3 mg/dL Normal 0.2 - 1.0 [facility] Comment on above: Performed By: #### 2 [id number] #### [facility],[address] [place] [address] 37054 Calcium [Mass/Vol] 9.3 mg/dL Normal 8.5 - 10.1 [facility] Comment on above: Performed By: #### 2 [id number] #### [facility],[address] [place] [address] 67566 Chloride [Moles/Vol] 102 mmol/L Normal 98 - 107 [facility] Comment on above: Performed By: #### 2 [id number] #### [facility],[address] [place] [address] 04250 CMP with eGFR Normal [facility] Comment on above: Result Comment: COMP REHENSIVE METABOLIC PANEL Performed By: #### 2 [id number] #### [facility],[address] [place] [address] 76065 CO2 [Moles/Vol] 25.1 mmol/L Normal 21.0 - 32.0 [facility] Comment on above: Performed By: #### 2 56111 #### [facility],[address] [place] [address] 34655 Creatinine [Mass/Vol] 0.86 mg/dL Normal 0.55 - 1.02 [facility] Comment on above: Performed By: #### 2 [id number] #### [facility],[address] [place] [address] 19847 GFR/1.73 sq M.predicted among non-blacks MDRD (S/P/Bld) [Vol rate/Area] mL/min/{1.73_m2} Normal 60 - 999 [facility] Comment on above: Performed By: #### 2 65600 #### [facility],[address] [place] [address] 29205 Result Comment: ACCO RDING TO THE NATIONAL KIDNEY DISEASE EDUCATION PROGRAM(NKDE), A NORMAL eGFR IS A VALUE GREATER THAN OR EQUAL TO 60 ML/MIN/1.73 SQ METERS. CHRONIC KIDNEY DISEASE: <60mL/MIN/1.73 SQ METERS KIDNEY FAILURE: <15mL/MIN/1.73 SQ METERS THIS TEST SHOULD ONLY BE USED FOR PATIENTS 18 YEARS OF AGE AND OLDER. Globulin (S) [Mass/Vol] 3.5 g/dL Normal 1.5 - 3.8 [facility] Comment on above: Performed By: #### 2 [id number] #### [facility],[address] [place] [address] 55014 Glucose [Mass/Vol] 99 mg/dL Normal 74 - 106 [facility] Comment on above: Performed By: #### 2 [id number] #### [facility],[address] [place] [address] Potassium [Moles/Vol] 3.4 mmol/L Low 3.5 - 5.1 [facility] Comment on above: Performed By: #### 2 [id number] #### [facility],[address] [place] [address] Protein [Mass/Vol] 7.5 g/dL Normal 6.4 - 8.2 [facility] Comment on above: Performed By: #### 2 [id number] #### [facility],[address] [place] [address] Sodium [Moles/Vol] 138 mmol/L Normal 136 - 145 [facility] Comment on above: Performed By: #### 2 [id number] #### [facility],[address] [place] [address] Urea nitrogen [Mass/Vol] 13 mg/dL Normal 7 - 18 [facility] Comment on above: Performed By: #### 2 [id number] #### [facility],[address] [place], [place] [id number] LIPASEon 09-29-2021 Lipase [Catalytic activity/Vol] 181.0 U/L Normal 73.0 - 393 [facility] Comment on above: Performed By: #### 2 [id number] #### [facility],[address] [place] [address] Clinical Lists 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: 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 Left ventricular Ejection fraction 55 % Invalid Interpretation Code [facility] Work Phone: Office Visiton 07-23-2017 Dietary management education, guidance, and counseling (procedure) yes Invalid Interpretation Code [facility] Work Phone: Documentation of current medications (procedure) Done Invalid Interpretation Code [facility] Work Phone: Fall risk assessment No Invalid Interpretation Code [employer] Work Phone: Protein mass conc Done Invalid Interpretation Code [employer] Work Phone: [phone] Tobacco smoking status NHIS Never smoker Invalid Interpretation Code [employer] Work Phone: [phone] Tobacco use CPHS Never smoker Invalid Interpretation Code [facility] Work Phone: [phone] Replaced Document: Monse MEJIAS Observationson 07-23-2017 EKG QRS axis 31 deg Invalid Interpretation Code [employer] Work Phone: [phone] electrocardiogram interpretation Sinus Rhythm WITHIN NORMAL LIMITS Invalid Interpretation Code [facility] Work Phone: [phone] GE use only - for [employer] import when terms are not otherwise specified 377 ms Invalid Interpretation Code [employer] Work Phone: [phone] Interpretation Sinus Rhythm WITHIN NORMAL LIMITS Invalid Interpretation Code [facility] Work Phone: [phone] P Talbott 66 deg Invalid Interpretation Code [employer] Work Phone: [phone] P wave axis, electrocardiogram 66 deg Invalid Interpretation Code [employer] Work Phone: [phone] ID Interval 132 ms Invalid Interpretation Code [employer] Work Phone: [phone] ID interval, electrocardiogram 132 ms Invalid Interpretation Code [employer] Work Phone: [phone] Pulse (Heart Rate) 64 /min Invalid Interpretation Code [facility] Work Phone: [phone] QRS axis, electrocardiogram 31 deg Invalid Interpretation Code [employer] Work Phone: [phone] QRS Duration 93 ms Invalid Interpretation Code [employer] Work Phone: [phone] QRS duration, electrocardiogram 93 ms Invalid Interpretation Code [employer] Work Phone: [phone] QT Interval new path ms Invalid Interpretation Code [employer] Work Phone: [phone] QT interval, electrocardiogram new path ms Invalid Interpretation Code [employer] Work Phone: [phone] QTc Potter 377 ms Invalid Interpretation Code [employer] Work Phone: [phone] T Talbott 31 deg Invalid Interpretation Code [employer] Work Phone: [phone] T wave axis, electrocardiogram 31 deg Invalid Interpretation Code [employer] Work Phone: [phone] Clinical Lists Update: 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-16-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 Left ventricular Ejection fraction 55-60 Invalid Interpretation Code [employer] Work Phone: [phone] Tobacco use CPHS Never smoker Invalid Interpretation Code [employer] Work Phone: [phone] Clinical Lists Update: [facility] 06-04-2017 Alanine aminotransferase (ALT) 15 U/L Invalid Interpretation Code [employer] Work Phone: [phone] Alkaline phosphatase (ALP) 53 U/L Invalid Interpretation Code [employer] Work Phone: [phone] ALP enzyme act/vol (Bld) 53 U/L Invalid Interpretation Code [employer] Work Phone: [phone] Aspartate aminotransferase (AST) 15 U/L Invalid Interpretation Code [employer] Work Phone: [phone] Bilirubin (total) 0.4 mg/dL Invalid Interpretation Code [facility] Work Phone: [phone] Protein 7.3 g/dL Invalid Interpretation Code [employer] Work Phone: [phone] Clinical Lists Update: [facility]11-06-2016 Cholesterol 158 mg/dL Invalid Interpretation Code [employer] Work Phone: [phone] HDL Cholesterol 58 mg/dL Invalid Interpretation Code [employer] Work Phone: [phone] LDL Cholesterol 87 mg/dL Invalid Interpretation Code [facility] Work Phone: [phone] Thyroid stimulating hormone (TSH) 6.68 u[iU]/mL Invalid Interpretation Code [employer] Work Phone: [phone] Triglyceride 64 mg/dL Invalid Interpretation Code [employer] Work Phone: [phone] Vital Signs Date Time Vital Sign Value Performing Clinician Facility 04-01-2025 08:29-0400 Body temperature 98.1 [degF] Ang Traore EXPERIMENTAL FLIGHT TEST MECHANIC-C Work Phone: [facility] 04-01-2025 08:29-0400 Diastolic blood pressure 60 mm[Hg] Ang Traore EXPERIMENTAL FLIGHT TEST MECHANIC-C Work Phone: [facility] 04-01-2025 08:29-0400 Heart rate 68 /min Ang Traore EXPERIMENTAL FLIGHT TEST MECHANIC-C Work Phone: [facility] 04-01-2025 08:29-0400 Respiratory rate 15 /min Ang Traore EXPERIMENTAL FLIGHT TEST MECHANIC-C Work Phone: [facility] 04-01-2025 08:29-0400 SaO2% (BldA) [Mass fraction] 96 % Ang Eugenie EXPERIMENTAL FLIGHT TEST MECHANIC-C Work Phone: [facility] 04-01-2025 08:29-0400 Systolic blood pressure 102 mm[Hg] Ang Traore EXPERIMENTAL FLIGHT TEST MECHANIC-C Work Phone: [facility] 03-22-2025 17:18-0400 Body temperature 99 [degF] Ang Traore EXPERIMENTAL FLIGHT TEST MECHANIC-C Work Phone: [facility] 03-22-2025 17:18-0400 Diastolic blood pressure 72 mm[Hg] Ang Traore EXPERIMENTAL FLIGHT TEST MECHANIC-C Work Phone: [facility] 03-22-2025 17:18-0400 Heart rate 89 /min Ang Traore EXPERIMENTAL FLIGHT TEST MECHANIC-C Work Phone: [facility] 03-22-2025 17:18-0400 Respiratory rate 15 /min Ang Traore EXPERIMENTAL FLIGHT TEST MECHANIC-C Work Phone: [facility] 03-22-2025 17:18-0400 SaO2% (BldA) [Mass fraction] 95 % Ang Traore EXPERIMENTAL FLIGHT TEST MECHANIC-C Work Phone: [facility] 03-22-2025 17:18-0400 Systolic blood pressure 128 mm[Hg] Ang Traore EXPERIMENTAL FLIGHT TEST MECHANIC-C Work Phone: [facility] 03-21-2025 17:13-0400 Body height 170.18 cm Ang Traore EXPERIMENTAL FLIGHT TEST MECHANIC-C Work Phone: [facility] 02-11-2023 07:26-0400 Diastolic blood pressure 74 mm[Hg] [facility] 02-11-2023 07:26-0400 Heart rate 69 /min [facility] 02-11-2023 07:26-0400 Respiratory rate 15 /min [facility] 02-11-2023 07:26-0400 SaO2% (BldA) [Mass fraction] 98 % [facility] 02-11-2023 07:26-0400 Systolic blood pressure 135 mm[Hg] [facility] 02-11-2023 04:15-0400 Body height 170.18 cm [facility] 02-11-2023 04:15-0400 Body mass index (BMI) [Ratio] 27.6 kg/m2 [facility] 02-11-2023 04:15-0400 Body temperature 97.7 [degF] [facility] 02-11-2023 04:15-0400 Body weight 80 kg [facility] 09-27-2021 09:03-0500 Diastolic blood pressure 69 mm[Hg] DAVID MEDINA MD [facility] 09-27-2021 09:03-0500 Heart rate 98 /min DAVID MEDINA MD [facility] 09-27-2021 09:03-0500 Respiratory rate 16 /min DAVID MEDINA MD [facility] 09-27-2021 09:03-0500 Systolic blood pressure 109 mm[Hg] DAVID MEDINA MD [facility] 09-27-2021 08:19-0500 Diastolic blood pressure 78 mm[Hg] DAVID MEDINA MD [facility] 09-27-2021 08:19-0500 Heart rate 101 /min DAVID MEDINA MD [facility] 09-27-2021 08:19-0500 Respiratory rate 16 /min DAVID MEDINA MD [facility] 09-27-2021 08:19-0500 Systolic blood pressure 110 mm[Hg] DAVID MEDINA MD [facility] 09-27-2021 07:57-0500 Diastolic blood pressure 80 mm[Hg] DAVID MEDINA MD [facility] 09-27-2021 07:57-0500 Heart rate 103 /min DAVID MEDINA MD [facility] 09-27-2021 07:57-0500 Respiratory rate 16 /min DAVID MEDINA MD [facility] 09-27-2021 07:57-0500 Systolic blood pressure 112 mm[Hg] DAVID MEDINA MD [facility] 09-27-2021 07:48-0500 Body height 170 cm DAVID MEDINA MD [facility] 09-27-2021 07:48-0500 Body temperature 98.78 [degF] DAVID MEDINA MD [facility] 09-27-2021 07:48-0500 Body weight 77 kg DAVID MEDINA MD [facility] 07-23-2017 15:06-0400 Heart rate 64 /min Amirah Hernandez RN [facility] Work Phone: 07-23-2017 14:50-0400 BMI (Body Mass Index) 27.88 kg/m2 Morgan Redd MD [facility] Work Phone: 07-23-2017 14:50-0400 BP Diastolic 70 mm[Hg] Morgan Redd MD [facility] Work Phone: 07-23-2017 14:50-0400 BP Systolic 102 mm[Hg] Morgan Redd MD [facility] Work Phone: 07-23-2017 14:50-0400 Height 170.18 cm Morgan Redd MD [facility] Work Phone: 07-23-2017 14:50-0400 Pulse (Heart Rate) 72 /min Morgan Redd MD [facility] Work Phone: 07-23-2017 14:50-0400 Respiratory Rate 16 /min Morgan Redd MD [facility] Work Phone: 07-23-2017 14:50-0400 Weight 80.74 kg Morgan Redd MD [facility] Work Phone: Encounters Encounter Date Encounter Type Care Provider Facility Start: 04-01-2025 End: 04-01-2025 Patient encounter procedure Velvet Mathew EXPERIMENTAL FLIGHT TEST MECHANIC-C [facility] Work Phone: Start: 04-01-2025 End: 04-01-2025 ambulatory Ang Traore EXPERIMENTAL FLIGHT TEST MECHANIC-C Work Phone: [facility] Work Phone: Start: 03-22-2025 End: 03-22-2025 Patient encounter procedure Abdiaziz Vasquez PA [facility] Work Phone: Start: 03-22-2025 End: 03-22-2025 ambulatory Ang Traore EXPERIMENTAL FLIGHT TEST MECHANIC-C Work Phone: [facility] Work Phone: Start: 05-06-2024 End: 05-06-2024 ambulatory Ang Traore EXPERIMENTAL FLIGHT TEST MECHANIC Facility:[facility] Start: 09-03-2023 End: 09-04-2023 ambulatory MIS MANTILLA MD Facility:[facility] Start: 09-03-2023 End: 09-03-2023 Patient encounter procedure MIS MANTILLA MD [facility] Start: 07-03-2023 End: 07-04-2023 ambulatory MIS MANTILLA MD Facility:[facility] Start: 06-12-2023 End: 06-13-2023 ambulatory ANG TRAORE Facility:[facility] Start: 06-12-2023 End: 06-12-2023 Patient encounter procedure Breanna Jones MD Work Phone: Dermatology Comment on above: Skin exam, screening for cancer (Primary Dx); Lentigines; Multiple benign nevi; Seborrheic keratosis; Graf angioma; Actinic keratosis; Intertrigo Start: 05-07-2023 End: 05-12-[address] 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 INTERN Facility:[facility] Start: 05-07-2023 End: 05-11-2023 Outreach Lab [facility] 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 INTERN [facility] Start: 03-06-2023 End: 03-07-2023 ambulatory ANG TRAORE Facility:[facility] Start: 03-06-2023 End: 03-06-2023 Patient encounter procedure Breanna Jones MD Work Phone: Dermatology Comment on above: Skin lesion (Primary Dx) Start: 02-11-2023 End: 02-11-2023 Emergency department patient visit [facility] Start: 12-25-2022 End: 12-25-2022 Emergency department patient visit ERNESTINA LETY Facility:[id number] Start: 11-11-2022 End: 11-11-2022 Patient encounter procedure [facility]Laboratory Start: 05-16-2022 End: 05-16-2022 Patient encounter procedure [facility] Start: 02-11-2022 End: 02-11-2022 Patient encounter procedure [facility] Start: 11-25-2021 End: 11-25-2021 Patient encounter procedure [facility] Start: 09-29-2021 End: 09-29-2021 Emergency department patient visit ANG TRAORE [facility] Start: 09-27-2021 End: 09-27-2021 Emergency department patient visit DAVID MEDINA MD [facility] Procedures Date Procedure Procedure Detail Performing Clinician Start: 02-11-2023 Plain chest X-ray Start: 08-20-2018 Stress test using ca rdiac pacing DAVID MEDINA MD Start: 07-23-2017 End: 07-23-2017 Dietary management education, guidance, and counseling Amirah Hernandez RN Start: 07-23-2017 End: 07-23-2017 Ecg routine ecg w/least 12 lds w/i&r Morgan Redd MD Start: 07-23-2017 End: 08-26-2017 Echocardiography Morgan Redd MD Start: 07-23-2017 End: 07-23-2017 Electrocardiogram, complete Morgan flower MD Echocardiography DAVID GASTELUM MD Kidney stone (disorder) ANANDA MEDINA MD Plan of Treatment Date Care Activity Detail Author Start: 08-14-2026 HPV TESTING HPV TESTING [facility] Start: 08-14-2026 PAP TESTING PAP TESTING [facility] Start: 07-03-2023 Influenza vaccination INFLUENZA (#1) [facility] Start: 02-11-2023 [facility] Start: 11-02-2022 DEPRESSION ASSESSMENT DEPRESSION ASSESSMENT [facility] Start: 12-14-2021 COVID-19 VACCINE (3 - Booster for Pfizer series) COVID-19 VACCINE (3 - Booster for Pfizer series) [facility] Start: 12-14-2021 COVID-19 VACCINE (3 - Pfizer series) COVID-19 VACCINE (3 - Pfizer series) [facility] Start: 2019 Mammography MAMMOGRAM [facility] Start: 07-28-2018 End: 07-28-2018 Appointment Appointment [facility] Work Phone: Start: 07-23-2017 End: 07-23-2017 Appointment Appointment [facility] Work Phone: Start: 07-23-2017 End: 07-29-2017 Echocardiography Echocardiogram (complete) [facility] Work Phone: Start: 07-23-2017 End: 07-23-2017 Follow Up Appt 1 year Follow Up Appt 1 year [facility] Work Phone: Start: 07-23-2017 End: 07-23-2017 Follow Up Appt Other Follow Up Appt Other [facility] Work Phone: Start: 07-23-2017 End: 07-23-2017 PFM PFM [facility] Work Phone: Start: 07-23-2017 End: 07-23-2017 Echocardiography Echocardiogram (complete) [facility] Work Phone: Start: 07-23-2017 End: 07-23-2017 Follow Up Appt 1 year Follow Up Appt 1 year [facility] Work Phone: Start: 07-23-2017 End: 07-23-2017 Follow Up Appt Other Follow Up Appt Other [facility] Work Phone: Start: 07-23-2017 End: 07-23-2017 PFM PFM [facility] Work Phone: Start: 1998 Urine microalbumin profile DTAP,TDAP,TD (1 - Tdap) [facility] Start: 1997 HEPATITIS C SCREENING HEPATITIS C SCREENING [facility] Start: 1997 HIV SCREENING HIV SCREENING [facility] Start: 1979 HEPATITIS B (1 of 3 - 3-dose series) HEPATITIS B (1 of 3 - 3-dose series) [facility] Patient Education ED Chest Pain, Noncardiac [facility] Work Phone: Patient referral [facility] Work Phone: [facility] Immunizations Immunization Date Immunization Notes Care Provider Andrew toney 07-31-2023 influenza, injectabl e, quadrivalent, contains preservative; Translations: [Fluarix PF Quadrivalent ] MIS MANTILLA MD [facility] 08-01-2022 influenza, injectabl e, quadrivalent, preservative free Ang Eugenie EXPERIMENTAL FLIGHT TEST MECHANIC-C Work Phone: [facility] 08-01-2022 influenza, seasonal, injectable [facility] 07-30-2021 influenza, injectabl e, quadrivalent, preservative free Ang Eugenie EXPERIMENTAL FLIGHT TEST MECHANIC-C Work Phone: [facility] 07-30-2021 influenza, seasonal, injectable [facility] 09-06-2020 influenza, injectabl e, quadrivalent, preservative free Ang Eugenie EXPERIMENTAL FLIGHT TEST MECHANIC-C Work Phone: [facility] 09-06-2020 influenza, seasonal, injectable [facility] 07-28-2019 influenza, injectabl e, quadrivalent, preservative free Ang Eugenie EXPERIMENTAL FLIGHT TEST MECHANIC-C Work Phone: [facility] 07-28-2019 influenza, seasonal, injectable [facility] 07-30-2018 influenza, injectabl e, quadrivalent, preservative free Ang Eugenie EXPERIMENTAL FLIGHT TEST MECHANIC-C Work Phone: [facility] 07-30-2018 influenza, seasonal, injectable [facility] 05-10-2018 tetanus toxoid, redu hitesh diphtheria toxoid, and acellular pertussis vaccine, adsorbed [facility] 08-17-2017 influenza, injectabl e, quadrivalent, preservative free Agn Roosevelt EXPERIMENTAL FLIGHT TEST MECHANIC-C Work Phone: [facility] 08-17-2017 influenza, seasonal, injectable [facility] 05-19-2017 hepatitis B vaccine, pediatric or pediatric/adolescent dosage [facility] 12-15-2016 hepatitis B vaccine, pediatric or pediatric/adolescent dosage [facility] 11-10-2016 hepatitis B vaccine, pediatric or pediatric/adolescent dosage [facility] 11-10-2016 measles, mumps and rubella virus vaccine [facility] 10-09-2016 influenza, injectabl e, quadrivalent, preservative free Ang Traore EXPERIMENTAL FLIGHT TEST MECHANIC-C Work Phone: [facility] 10-09-2016 influenza, seasonal, injectable [facility] Payers Date Payer Category Payer Self-pay [id number] 2020 Private Health Insurance [id number] 2020 Private Health Insurance WARREN BARILLAS OAP [id number] 2020-Present [phone] [facility] [id number] [place] [address] Open Access [id number] 1979 Unknown [id number] 1979 Unknown [id number] 1979 Unknown [id number] 1979 Unknown [id number] Unknown [id number] Unknown [id number] Unknown [id number] Unknown [id number] Social History Date Type Detail Facility Start: 10-07-2019 Ex-smoker (finding) [facility] Start: 1980 Sex Assigned At Female [facility] Alvin Abreu Start: 10-02-2021 End: 02-11-2023 Tobacco smoking status NHIS Unknown if ever smoked [facility] Start: 10-25-2020 With Family Alesha Barro[facility] Start: 03-26-2012 End: 03-21-2025 Tobacco smoking status NHIS Never smoked tobacco [facility] Start: 03-26-2012 Tobacco use and exposure Smokeless tobacco non-user [facility] Start: 06-18-2022 Alcohol intake Current drinke r of alcohol (finding) [facility] Start: 1980 Sex Assigned At Not on file [facility] Start: 06-18-2022 End: 03-06-2023 History of Social function [facility] Start: 06-18-2022 End: 03-06-2023 Tobacco use panel [facility] National Score (1-100), lower number is lower risk 80 [facility] NEGATED: Highlighted row [facility] Mental Status Date Assessment Result Facility 02-11-2023 Cognitive function Voice/Name [facility] Work Phone: Clinical Notes 09-27-2021 to 03-22-2025 Note Date & Type Note Facility 03-22-2025 Evaluation note Diagnosis Onset Date Resolution Acute bronchitis, unspecified acute March 22, 2025 5 :14pm [facility] Work Phone: [phone] 243-262511-02-2023 Note ORIGINAL EXAMINATION: HIDA111/03/2022 9:27 am TECHNIQUE: The patient received an intravenous injection of 5.2 mCi of Tc-99m mebrofenin (Choletec). Sequential planar images of the upper abdomen were then acquired over the next 60 minutes. An intravenous infusion of the cholecystokinin (CCK) analogue, Sincalide was then administered followed by an additional period of imaging. Computer quantification of gallbladder emptying was performed. COMPARISON: Abdominal ultrasound 09/06/2018. HISTORY: ORDERING SYSTEM PROVIDED HISTORY: Reason for Exam: pain and chronic diarrhea. Umbilical pain, nausea, diarrhea x2 years. FINDINGS: There is prompt accumulation of activity within the liver and normal subsequent excretion via the biliary ductal system into the small bowel. The gallbladder first visualizes at about 30 minutes after radiopharmaceutical injection and progressively fills. After stimulation, there is prompt contraction of the gallbladder with further anterograde transit of activity into the small bowel. The gallbladder ejection fraction is calculated to be 55 % (normal above 35%). IMPRESSION: 1. No findings to suggest acute or chronic cholecystitis. 2. Patent common bile duct. 3. Normal hepatic function. I have personally reviewed the images of this examination and agree with the resident's findings and interpretation. Interpreted by: Donavon Engle DO Preliminary Report By: Ramesh Perales Electronically signed By Donavon Engle DO Dictated Date: 09/03/2023 9:32:29 AM Prelim Date: 09/03/2023 10:27:36 AM Sign Date: 09/03/2023 10:27:36 AM Ordering Provider: [facility]08-11-2023 NoteHNO ID: [id number] Author: Breanna Jones MD Service: ? Author Type: Physician Type: Progress Notes Filed: 07/13/2023 10:12 AM Note Text: EST PATIENT LV: 03/06/23 CHIEF COMPLAINT: FBSE HISTORY OF PRESENT ILLNESS: Laura Ruvalcaba is a 42 year old female here for evaluation of full body skin exam. 1) Full body skin exam -Denies any lesions of concern today 2) Lesion for monitoring follow-up Location: left cheek Changes in appearance: denies Symptoms: denies itching, bleeding or tenderness -2.1 x 1.5 cm Light brown patch on the L cheek with peppering on the superior peripheral edge on dermoscopy (favor inflamed seborrheic keratosis) Pt has h/o BV and has been unable to treat, due to risk of Cdiff infection. 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 No current facility-administered medications for this visit. PHYSICAL EXAM: General: awake, alert, no acute distress Neuropsych: appropriate mood and affect Skin: Skin exam was performed today including the following: head and face, scalp, neck, chest, abdomen, buttocks, back, bilateral upper extremities, bilateral lower extremities, hands, feet, digits, nails. Pertinent findings include: Lentigines: Densely scattered light abrams macules noted on all sun exposed areas Angiomas: Small graf red papules scattered throughout the trunk and extremities Seborrheic keratoses: Brown stuck on plaques throughout the trunk AND extremities Benign nevi: regular and symmetric pigmented macules and papules scattered throughout the trunk and extremities - On left cheek, 2.1 x 1.5 cm Light brown patch with less peppering on the superior peripheral edge on dermoscopy, overlying scale (favor pigmented AK) - On the right cheek, there is a abrams macule c/w solar lentigo - On right cheekbone, there is a scaly erythematous papule c/w AK -Umbilicus with moist erythematous and fissured patch -Gluteal cleft and medial buttocks with moist erythematous patches and central fissuring -Labial mucosa with white discharge and erythematous fissures ASSESSMENT AND PLAN: Left cheek - favor pigmented AK Actinic keratosis, right cheekbone -For lesion on left cheek favor pigmented AK. Also considered inflamed seborrheic keratosis. Do not favor atypical melanocytic lesion. Discussed option for biopsy for definitive diagnosis, however risk for permanent scarring. - Less peppering from prior photo 03/06/23 - Discussed premalignant etiology of actinic keratosis - Recommended LN2 and discussed risks and benefits - Discussed side effects including redness, swelling, crusting, and discoloration after treatment, wound care with soap/water and vaseline - Procedure Note Cryosurgery of pre-malignant lesion(s) Risks, benefits, alternatives, complications, and personnel required for cryosurgery reviewed with patient. Specifically, the risks of permanent scar, loss or darkening of skin color, blister, incomplete treatment, and recurrence of lesion were discussed. Patient verbalizes understanding and wishes to proceed. - Cryosurgery performed with Liquid Nitrogen via cryostat spray gun to Actinic Keratosis . 2 lesion(s) treated. - Patient tolerated well and wound care discussed. Return if lesions fails to fully resolve. Clinically benign-appearing skin lesions including: lentigines, benign appearing nevi, seborrheic keratoses, graf hemangiomas -Reassurance provided regarding the benign nature of these lesions -Recommend monthly self skin exam. Return for new, changing or otherwise concerning skin lesions. -Recommend daily sun protection with broad-spectrum sunscreen SPF 30+, avoidance of sun during peak hours, and sun protective clothing. #Intertrigo - Start ketoconazole 2% cream twice daily x 2 weeks to gluteal cleft and umbilicus - Advised patient to stop applying clobetasol to the area - Follow up with [facility] for bacterial vaginosis and irritation/fissures Return to Dermatology clinic in 4-6 for lesion monitoring or sooner, if something concerning arises. Return (more content not included)...[facility]08-11-2023 Instructions* Patient Instructions* Breanna Jones MD - 06/12/2023 8:18 AM EDT Notify me of any growing, changing (size, color, shape), symptomatic (itching, painful, bleeding) or otherwise concerning lesions that develop Return in 6 months to recheck the lesion on the left cheek that was treated with freezing today. Return in 1 year for skin check Intertrigo: For umbilicus and the buttocks - use ketoconazole cream twice daily x 2 weeks Follow up with [facility] for genital area. - stop applying clobetasol steroid cream to the area as this can cause thinning - Follow up with [facility] for bacterial vaginosis and irritation/fissures GENERAL SUN SAFETY Thank you for allowing me to examine you for signs of skin cancer today. We had an opportunity to discuss my findings and any treatments I recommended. I believe that there are several steps that a person can do to help prevent skin cancers and to detect them at an early, treatable stage: 1. I highly recommend that once a month you perform your own complete skin check looking for changing or unusual spots. Use a wall-mounted mirror and a hand mirror to assist in seeing body areas thatare difficult to see otherwise. If you have a family member that can assist, this is often helpful.Additional information can be obtained at: www.skincancer.org/qswo-dgfqos-wqdkifoaqol/early-detection 2. In many cases, skin cancer can be prevented. The best way to protect yourself is to avoid too much sun and sunburns. Health care providers believe that ultraviolet rays (UV rays) from the sun damage the skin and over time lead to skin cancer. Here are ways to protect yourself: -Don't spend long periods of time in direct sunlight. -Wear hats with brims to protect your face and ears. -Wear long-sleeved shirts and pants to protect your arms and legs. -Use broad spectrum sunscreens with a SPF (skin protection factor) of 30 or higher that protect against burning and tanning rays. Apply the lotion 30 minutes before you go outside. (Broad-spectrum sunscreens protect against UV-B and UV-A rays.) -Wear sunglasses to protect your eyes. -Use a lip balm with sunscreen. -Avoid the sun between 10am and 4pm. -Show any changing mole to your health care provider. SKIN CARE AFTER CRYOSURGERY The skin's response to cryosurgery (freezing) can be mild to severe, depending on the depth of the freeze and location of the area treated. You may have minimal redness and swelling with little discomfort or significant discoloration and blistering with considerable discomfort. A burning sensation in the skin may last from several minutes to several hours after the procedure. Follow these instructions when caring for an area treated by cryosurgery: 1. Please clean the area every day with gentle soap and water. It is not necessary to cover the site with a bandage. However, it may be used for protection and it must be changed daily. Do not leave a soiled or wet bandage on the wound. 2. If you are experiencing discomfort you may use a cool compress, elevate the area or take over the counter pain relievers. 3. Apply Vaseline or Aquaphor daily to the site. This can help with itching, irritation, and discomfort. -The lesion may take 2-4 weeks to fully resolve. Depending on the severity of treatment and lesion treated, it may take longer. -DO NOT USE NEOSPORIN OR BACITRACIN as there is a fairly high incidence of allergic response to these products. -You may experience some mild discomfort, redness, swelling, and/or a clear discharge from the wound after your procedure. Severe pain, worsening swelling, and foul-smelling discharge from the site are NOT to be expected. If you have concerns about how your wounds are healing, please send your provider a Le[employer] message or call. documented [facility] History of Present illness Narrative* Breanna Jones MD - 06/12/2023 8:00 AM EDT EST PATIENT LV: 03/06/23 CHIEF COMPLAINT: FBSE HISTORY OF PRESENT ILLNESS: Laura Ruvalcaba is a 42 year old female here for evaluation of full body skin exam. 1) Full body skin exam -Denies any lesions of concern today 2) Lesion for monitoring follow-up Location: left cheek Changes in appearance: denies Symptoms: denies itching, bleeding or tenderness -2.1 x 1.5 cm Light brown patch on the L cheek with peppering on the superior peripheral edge on dermoscopy (favor inflamed seborrheic keratosis) Pt has h/o BV and has been unable to treat, due to risk of Cdiff infection. 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 No current facility-administered medications for this visit. PHYSICAL EXAM: General: awake, alert, no acute distress Neuropsych: appropriate mood and affect Skin: Skin exam was performed today including the following: head and face, scalp, neck, chest, abdomen, buttocks, back, bilateral upper extremities, bilateral lower extremities, hands, feet, digits,nails. Pertinent findings include: Lentigines: Densely scattered light abrams macules noted on all sun exposed areas Angiomas: Small graf red papules scattered throughout the trunk and extremities Seborrheic keratoses: Brown stuck on plaques throughout the trunk & extremities Benign nevi: regular and symmetric pigmented macules and papules scattered throughout the trunk andextremities - On left cheek, 2.1 x 1.5 cm Light brown patch with less peppering on the superior peripheral edgeon dermoscopy, overlying scale (favor pigmented AK) - On the right cheek, there is a abrams macule c/w solar lentigo - On right cheekbone, there is a scaly erythematous papule c/w AK -Umbilicus with moist erythematous and fissured patch -Gluteal cleft and medial buttocks with moist erythematous patches and central fissuring -Labial mucosa with white discharge and erythematous fissures ASSESSMENT & PLAN: Left cheek - favor pigmented AK Actinic keratosis, right cheekbone -For lesion on left cheek favor pigmented AK. Also considered inflamed seborrheic keratosis. Do notfavor atypical melanocytic lesion. Discussed option for biopsy for definitive diagnosis, however risk for permanent scarring. - Less peppering from prior photo 03/06/23 - Discussed premalignant etiology of actinic keratosis - Recommended LN2 and discussed risks and benefits - Discussed side effects including redness, swelling, crusting, and discoloration after treatment, wound care with soap/water and vaseline - Procedure Note Cryosurgery of pre-malignant lesion(s) Risks, benefits, alternatives, complications, and personnel required for cryosurgery reviewed with patient. Specifically, the risks of permanent scar, loss or darkening of skin color, blister, incomplete treatment, and recurrence of lesion were discussed. Patient verbalizes understanding and wishesto proceed. - Cryosurgery performed with Liquid Nitrogen via cryostat spray gun to Actinic Keratosis . 2 lesion(s) treated. - Patient tolerated well and wound care discussed. Return if lesions fails to fully resolve. Clinically benign-appearing skin lesions including: lentigines, benign appearing nevi, seborrheic keratoses, graf hemangiomas -Reassurance provided regarding the benign nature of these lesions -Recommend monthly self skin exam. Return for new, changing or otherwise concerning skin lesions. -Recommend daily sun protection with broad-spectrum sunscreen SPF 30+, avoidance of sun during peakhours, and sun protective clothing. #Intertrigo - Start ketoconazole 2% cream twice daily x 2 weeks to gluteal cleft and umbilicus - Advised patient to stop applying clobetasol to the area - Follow up with [facility] for bacterial vaginosis and irritation/fissures Return to Dermatology clinic in 4-6 for lesion monitoring or sooner, if something concerning arises. Return in 1 year for skin check. Vesta Mahan MD Dermatology PGY-2 The documentation for this note was completed by Ning Weaver RN acting as scribe for Breanna Sierra MD. June 12, 2023 8:02 AM. Attestation: I agree with the Chief Complaint, ROS, and Past Histories independently gathered by the clinical operations support professionals, and the remaining scribed note accurately describes my personal service to the patient. I saw and evaluated Laura Ruvalcaba, as well as developed and discussed the assessment and plan with the Resident. I have reviewed the Resident's note and agree with the history and physical examinationas described, as well as the assessment and plan of care. The resident's note was annotated by me as needed to reflect my direct input. I supervised the procedure(s) performed as documented above by the Resident. Breanna Jones MD documented in this encounterA[facility] Evaluation + Plan note Future Scheduled Tests Laboratory* Thyroid Stimulating Hormone 11/26/23 * Free T4 11/26/23 * Lipid Profile 05/25/23 * Vitamin D Level 05/25/23 * Vitamin D Level 11/26/23 * Complete Metabolic Panel 05/25/23 [facility] 05-05-2023 NoteHNO ID: [id number] Author: Breanna Jones MD Service: ? Author Type: Physician Type: Progress Notes Filed: 03/30/2023 12:19 AM Note Text: NEW PATIENT CHIEF COMPLAINT: pigmentation on face HISTORY OF PRESENT ILLNESS: Laura Ruvalcaba is a 42 year old female with a PMH of hypothyroidism here for evaluation of pigmented areas on face. Patient first noticed lesion around 2 years ago which has been changing in size but uncertain if color has changed. Denies itchiness or pain . Dad had skin cancer and pancreatic cancer, uncertain if skin cancer was melanoma. HPI: pigmented areas Location: left cheek Duration: a few years, new spot spot growing over unknown amount of time Appearance (size, shape, color): darkened area on left cheek Symptoms (growing, itching, bleeding, tender): denies Modifying factors: None Current treatment: None Past treatments: None Personal Dermatologic History History of skin cancer: No History of atypical nevi: No History of chronic skin disease: Yes psoriasis History of allergic rhinitis / asthma: No History of hypothyroidism Family History History of skin cancer: Yes father had skin cancer, unsure what kind History of chronic skin disease: Yes father with psoriasis History autoimmune diseases: No Social History Tobacco use: No EtOh use: Yes rarely 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 No current facility-administered medications for this visit. PHYSICAL EXAM: General: awake, alert, no acute distress Neuropsych: appropriate mood and affect Skin: Skin exam was performed today including the following: face. Pertinent findings include: -2.1 x 1.5 cm Light brown patch on the L cheek with peppering on the superior peripheral edge on dermoscopy (favor inflamed seborrheic keratosis) ASSESSMENT AND PLAN: #Lesion for monitoring: Light brown patch on the L cheek #Ddx inflamed seborrheic keratosis vs solar lentigo vs pigmented actinic keratosis (less likely). Do not favor atypical melanocytic lesion. -We had an extensive discussion with the patient regarding the need for continued surveillance of the lesion(s) listed above for monitoring. As explained during today's visit, the lesion(s) do not reflect, at this point, a level of concern that will tho the need of a skin biopsy. The patient was in agreement with the monitoring approach. However, it will require the commitment from the patient to watch for future changes and to be seen at the proposed follow-up visit for re-evaluation of the lesion, or earlier in case of any concerning changes. - Advised diligent sun protection and use of sunscreen SPF 30 and above. - The ABCDEs of melanoma were reviewed with the patient and the importance of monthly self-examination of moles was emphasized. - Should spot of concern changes in color, itch, bleed, or burn, patient will contact the office for evaluation sooner than their interval appointment. - Photos today - In reserve: biopsy Return to Dermatology clinic in 3 months (lesion monitoring and FBSE) or sooner Wilton Dallas MD Dermatology Resident The documentation for this note was completed by Padmini Parks RN acting as scribe for Breanna Jones MD. March 06, 2023 1:31 PM. Attestation: I agree with the Chief Complaint, ROS, and Past Histories independently gathered by the clinical operations support professionals, and the remaining scribed note accurately describes my personal service to the patient. I saw and evaluated Laura Ruvalcaba, as well as developed and discussed the assessment and plan with the Resident. I have reviewed the Resident's note and agree with the history and physical examination as described, as well as the assessment and plan of care. The resident's note was annotated by me as needed to reflect my direct input. There were no procedures performed during this patient's visit. Breanna Jones, [facility]05-05-2023 Instructions* Patient Instructions* Breanna Jones MD - 03/06/2023 2:17 PM EDT -Sunscreen (SPF 30 or higher) and sun protection reviewed. - The ABCDEs of melanoma were reviewed with the patient and the importance of monthly self-examination of moles was emphasized. - Should spot of concern changes in color, itch, bleed, or burn, patient will contact the office for evaluation sooner than their interval appointment. Follow up: 3 months for follow up and [facility] Lesion for monitoring - Left cheek -We had an extensive discussion with the patient regarding the need for continued surveillance of the lesion(s) listed above for monitoring. As explained during today's visit, the lesion(s) do not reflect, at this point, a level of concern that will tho the need of a skin biopsy. The patient was in agreement with the monitoring approach. However, it will require the commitment from the patient to watch for future changes and to be seen at the proposed follow-up visit for re-evaluation of the lesion, or earlier in case of any concerning changes. documented in this encounterA[facility]05-05-2023 History of Present illness Narrative* Breanna Jones MD - 03/06/2023 1:40 PM EDT NEW PATIENT CHIEF COMPLAINT: pigmentation on face HISTORY OF PRESENT ILLNESS: Laura Ruvalcaba is a 42 year old female with a PMH of hypothyroidism here for evaluation of pigmented areas on face. Patient first noticed lesion around 2 years ago which hasbeen changing in size but uncertain if color has changed. Denies itchiness or pain . Dad had skin cancer and pancreatic cancer, uncertain if skin cancer was melanoma. HPI: pigmented areas Location: left cheek Duration: a few years, new spot spot growing over unknown amount of time Appearance (size, shape, color): darkened area on left cheek Symptoms (growing, itching, bleeding, tender): denies Modifying factors: None Current treatment: None Past treatments: None Personal Dermatologic History History of skin cancer: No History of atypical nevi: No History of chronic skin disease: Yes psoriasis History of allergic rhinitis / asthma: No History of hypothyroidism Family History History of skin cancer: Yes father had skin cancer, unsure what kind History of chronic skin disease: Yes father with psoriasis History autoimmune diseases: No Social History Tobacco use: No EtOh use: Yes rarely 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 No current facility-administered medications for this visit. PHYSICAL EXAM: General: awake, alert, no acute distress Neuropsych: appropriate mood and affect Skin: Skin exam was performed today including the following: face. Pertinent findings include: -2.1 x 1.5 cm Light brown patch on the L cheek with peppering on the superior peripheral edge on dermoscopy (favor inflamed seborrheic keratosis) ASSESSMENT & PLAN: #Lesion for monitoring: Light brown patch on the L cheek #Ddx inflamed seborrheic keratosis vs solar lentigo vs pigmented actinic keratosis (less likely). Do not favor atypical melanocytic lesion. -We had an extensive discussion with the patient regarding the need for continued surveillance of the lesion(s) listed above for monitoring. As explained during today's visit, the lesion(s) do not reflect, at this point, a level of concern that will tho the need of a skin biopsy. The patient was in agreement with the monitoring approach. However, it will require the commitment from the patient to watch for future changes and to be seen at the proposed follow-up visit for re-evaluation of the lesion, or earlier in case of any concerning changes. - Advised diligent sun protection and use of sunscreen SPF 30 and above. - The ABCDEs of melanoma were reviewed with the patient and the importance of monthly self-examination of moles was emphasized. - Should spot of concern changes in color, itch, bleed, or burn, patient will contact the office for evaluation sooner than their interval appointment. - Photos today - In reserve: biopsy Return to Dermatology clinic in 3 months (lesion monitoring and FBSE) or sooner Wilton Dallas MD Dermatology Resident The documentation for this note was completed by Padmini Parks RN acting as scribe for Breanna Jones MD. March 06, 2023 1:31 PM. Attestation: I agree with the Chief Complaint, ROS, and Past Histories independently gathered by the clinical operations support professionals, and the remaining scribed note accurately describes my personal service to the patient. I saw and evaluated Laura Ruvalcaba, as well as developed and discussed the assessment and plan with the Resident. I have reviewed the Resident's note and agree with the history and physical examinationas described, as well as the assessment and plan of care. The resident's note was annotated by me as needed to reflect my direct input. There were no procedures performed during this patient's visit. Breanna Jones MD [facility] Discharge instructions Patient Education 09/27/2021 08:49:34 COVID-19 Prevent the Spread of COVID-19 If You Are Sick (03/20/2020)(CUSTOM) Prevent the Spread of COVID-19 If You Are Sick Accessible version: https://www.cdc.gov/coronavirus/2019-ncov/ze-eai-eks-sick/mlhcn-nbdh-luov.html If you are sick with COVID-19 or think you might have COVID-19, follow the steps below to help protect other people in your home and community. Stay home except to get medical care. Stay home. Most people with COVID-19 have mild illness and are able to recover at home without medical care. Do not leave your home, except to get medical care. Do not visit public areas. Take care of yourself. Get rest and stay hydrated. Get medical care when needed. Call your doctor before you go to their office for care. But, if you have trouble breathing or other concerning symptoms, call 911 for immediate help. Avoid public transportation, ride-sharing, or taxis. Separate yourself from other people and pets in your home. As much as possible, stay in a specific room and away from other people and pets in your home. Also, you should use a separate bathroom, if available. If you need to be around other people or animalsin or outside of the home, wear a cloth face covering. See COVID-19 and Animals if you have questions about pets: https://www.cdc.gov/coronavirus/2019ncov/faq.html#MQUEZ03ufbzxlk Monitor your symptoms. Common symptoms of COVID-19 include fever and cough. Trouble breathing is a more serious symptom that means you should get medical attention. Follow care instructions from your healthcare provider and local health department. Your local health authorities will give instructions on checking your symptoms and reporting information. If you develop emergency warning signs for COVID-19 get medical attention immediately. Emergency warning signs include*: Trouble breathing Persistent pain or pressure in the chest New confusion or not able to be woken Bluish lips or face *This list is not all inclusive. Please consult your medical provider for any other symptoms that are severe or concerning to you. Call 911 if you have a medical emergency. If you have a medical emergency and need to call 911, notify the drill press operator for metal that you have or think you might have, COVID-19. If possible, put on a facemask before medical help arrives Call ahead before visiting your doctor. Call ahead. Many medical visits for routine care are being postponed or done by phone or telemedicine. If you have a medical appointment that cannot be postponed, call your doctor s office. This will help the office protect themselves and other patients. If you are sick, wear a cloth covering over your nose and mouth. You should wear a cloth face covering over your nose and mouth if you must be around other people or animals, including pets (even at home). You don t need to wear the cloth face covering if you are alone. If you can t put on a cloth face covering (because of trouble breathing for example), cover your coughs and sneezes in some other way.Try to stay at least 6 feet away from other people. This will help protect the people around you. Note: During the COVID-19 pandemic, medical grade facemasks are reserved for healthcare workers andsome first responders. You may need to make a cloth face covering using a scarf or bandana. Cover your coughs and sneezes. Cover your mouth and nose with a tissue when you cough or sneeze. Throw used tissues in a lined trash can. Immediately wash your hands with soap and water for at least 20 seconds. If soap and water are not available, clean your hands with an alcohol-based hand broach trouble shooter that contains at least 60% alcohol. Clean your hands often. Wash your hands often with soap and water for at least 20 seconds. This is especially important after blowing your nose, coughing, or sneezing; going to the bathroom; and before eating or preparing food. Use hand broach trouble shooter if soap and water are not available. Use an alcohol-based hand broach trouble shooter with atleast 60% alcohol, covering all surfaces of your hands and rubbing them together until they feel dry. Soap and water are the best option, especially if your hands are visibly dirty. \ Avoid touching your eyes, nose, and mouth with unwashed hands. Avoid sharing personal household items. Do not share dishes, drinking glasses, cups, eating utensils, towels, or bedding with other people in your home. Wash these items thoroughly after using them with soap and water or put them in the burring wheel operator. Clean all high-touch surfaces everyday. Clean and disinfect high-touch surfaces in your sick room and bathroom. Let someone else clean and disinfect surfaces in common areas, but not your bedroom and bathroom. If a caregiver or other person needs to clean and disinfect a sick person s bedroom or bathroom, they should do so on an as-needed basis. The caregiver/other person should wear a mask and wait as long as possible after the sick person has used the bathroom High-touch surfaces include phones, remote controls, counters, tabletops, doorknobs, bathroom fixtures, toilets, keyboards, tablets, and bedside tables. Clean and disinfect areas that may have blood, stool, or body fluids on them. Use household head of merchandise buying and disinfectants. Clean the area or item with soap and water or another detergent if it is dirty. Then use a household disinfectant. Be sure to follow the instructions on the label to ensure safe and effective use of the product. Many products recommend keeping the surface wet for several minutes to ensure germs are killed. Many also recommend precautions such as wearing gloves and making sure you have good ventilation during use of the product. Most EPA-registered household disinfectants should be effective. How to discontinue home isolation. People with COVID-19 who have stayed home (home isolated) can stop home isolation under the following conditions: If you will not have a test to determine if you are still contagious, you can leave home after these three things have happened: You have had no fever for at least 72 hours (that is three full days of no fever without the use ofmedicine that reduces fevers) AND other symptoms have improved (for example, when your cough or shortness of breath has improved) AND at least 10 days have passed since your symptoms first appeared. If you will be tested to determine if you are still contagious, you can leave home after these three things have happened: You no longer have a fever (without the use of medicine that reduces fevers) AND other symptoms have improved (for example, when your cough or shortness of breath has improved) AND you received two negative tests in a row, 24 hours apart. Your doctor will follow CDC guidelines. In all cases, follow the guidance of your healthcare provider and local health department. The decision to stop home isolation should be made in consultation with your healthcare provider and state and local health departments. Local decisions depend on local circumstances. cdc.gov/coronavirus Follow Up Care 09/27/2021 07:36:45 With:ANG TRAORE Address:Unknown When:2-4 days Comments:Schedule appointment as soon as possibleReturn to ED if symptoms worsenREturn if pulse ox drops to 88%. Take 1200mg regular mucinex 2x/day. Avoid exposure to others for 7 days and completely better. [facility] Evaluation + Plan note Future Appointments Appointment Date:10/01/2021 10:00:00 AM Scheduled Provider:ANG TRAORE APRN, CNP Location:[facility] Appointment Type:PC OV Appointment Date:12/02/2021 04:00:00 PM Scheduled Provider:ANG TRAORE APRN, CNP Location:[facility] Appointment Type: OV Follow Up Future Scheduled Tests Laboratory* Vitamin D Level 11/27/21 [facility] Evaluation + Plan note Future Appointments Appointment Date:05/26/2023 07:20:00 AM Scheduled Provider:ANG TRAORE APRN, CNP Location:[facility] Appointment Type: OV Follow Up Future Scheduled Tests Laboratory* Lipid Profile 05/25/23 * Vitamin D Level 05/25/23 * Complete Metabolic Panel 05/25/23 [facility] evalufmjfc noteNo assessment information available [facility] Work Phone: Evaluation note* Diagnosis Skin lesion- Primary Unspecified disorder of skin and subcutaneous tissue [facility] Diagnosis Skin exam, screening for cancer- Primary Screening for malignant neoplasm of the skin Lentigines Other dyschromia Multiple benign nevi Benign neoplasm of skin, site unspecified Seborrheic keratosis Other seborrheic keratosis Graf angioma Nevus, non-neoplastic Actinic keratosis Intertrigo Other specified erythematous condition [facility] Narrative No data available for this section [facility] Hospital Discharge instructions No data available for this section [facility] Progress note No data available for this section [facility] Reason for referral (narrative)No reason for referral [facility] Work Phone: Summary Purpose Family History No Family History Records Found Relationship Condition Age at Onset Recorded Date/T sarmad mother Hypertension Unknown Coronary artery disease Unknown Advance Directives No Advanced Directives Records Found Advance Directive Response Recorded Date/ Time Living Will No October 02 1:05pm Power of Rodeo Performer No October 02, 2021 1:05pm Advance Directive Response Recorded Date/ Time Living Will No February 11, 2023 4:17am Power of Rodeo Performer No February 11 4:17am Chief Complaint and Reason for Visit Chief Complaint chest pain Chief Complaint Admit Date Cough March 22, 2025 5:14p m Chief Complaint Admit Date Cough March 22, 2025 5:14p m CONCERN FOR THRUSH April 01, 2025 8:22a m Reason for Visit Admit Date Acute bronchitis, unspecified March 22, 2025 5:14pm Additional Source Comments INFORMATION SOURCE (unrecogn ized section and content) DATE CREATED AUTHOR 10/10/2021 Wilbert Rowan [facility] DATE CREATED AUTHOR AUTHOR'S ORGANIZ ATION 12/26/2022 [facility] DATE CREATED AUTHOR AUTHOR'S ORGANIZ ATION 07/13/2023 [facility] DATE CREATED AUTHOR AUTHOR'S ORGANIZ ATION 09/04/2023 [facility] ([place] DATE CREATED AUTHOR AUTHOR'S ORGANIZ ATION 04/02/2025 [facility] Goals (unrecognized section and content) Goals may be documented in a n alternate section Care Teams (unrecognized sec tion and content) Team Status: Active Member Role Status Dates Dr. Ang Whyte MD Family Provider Active Ang Traore EXPERIMENTAL FLIGHT TEST MECHANIC, EXPERIMENTAL FLIGHT TEST MECHANIC-C Primary Care Provider Active Team Status: Inactive Member Role Status Dates Ang Traore EXPERIMENTAL FLIGHT TEST MECHANIC, EXPERIMENTAL FLIGHT TEST MECHANIC-C Primary Care Provider, Attending Provider Active Team Status: Inactive Member Role Status Dates Ang Traore EXPERIMENTAL FLIGHT TEST MECHANIC, EXPERIMENTAL FLIGHT TEST MECHANIC-C Primary Care Provider Active Dr. Rudi Sanchez DO Emergency Provider Active Archives Specialist Relationship Specialty Start Date End Date Ang Traore, AGRICULTURE INTERN [address] [facility] [place] [address] PCP - General Family Medicine 12/25/22 Archives Specialist Relationship Specialty Start Date End Date Ang Traore, AGRICULTURE INTERN [address] [facility] [place] [address] PCP - General [facility] Medicine 12/25/22 Team Status: Inactive Member Role Status Dates Ang Traore EXPERIMENTAL FLIGHT TEST MECHANIC, EXPERIMENTAL FLIGHT TEST MECHANIC-C Primary Care Provider Active Start: March 22, 2025 End: March 22, 2025 Ang Traore EXPERIMENTAL FLIGHT TEST MECHANIC, EXPERIMENTAL FLIGHT TEST MECHANIC-C Referring Provider Ac tive Start: March 22, 2025 End: March 22, 2025 Abdiaziz BEARDEN, PA Attending Provider Active Start: March 22, 2025 End: March 22, 2025 Team Status: Inactive Member Role Status Dates Ang Traore EXPERIMENTAL FLIGHT TEST MECHANIC, EXPERIMENTAL FLIGHT TEST MECHANIC-C Primary Care Provider Active Start: April 01, 2025 End: April 01, 2025 Ang Traore NP, EXPERIMENTAL FLIGHT TEST MECHANIC-C Referring Provider Ac tive Start: April 01, 2025 End: April 01, 2025 Velvet Mathew NP-C Attending Provider Active Start: April 01, 2025 End: April 01, 2025 Source Comments (unrecognize d section and content) In the event this informatio n is protected by the Federal Confidentiality of Alcohol and Drug Abuse Patient Records regulations: The Federal rules restrict any use of the information to criminally investigate or prosecute any alcohol or drug abuse patient.[facility] the event this information is protected by the Federal Confidentiality of Alcohol and Drug Abuse Patient Records regulations: The Federal rules restrict any use of the information to criminally investigate or prosecute any alcohol or drug abuse patient.[facility] Reason for Visit (unrecogniz ed section and content) Reason Comments Consult Reason Comments Full Body Skin Check FOR RECORDS PERTAINING TO PATIENTS WHO ARE OR HAVE BEEN ENROLLED IN A CHEMICAL DEPENDENCY/SUBSTANCEABUSE PROGRAM, SOME INFORMATION MAY BE OMITTED. This clinical summary was aggregated from multiple sources. Caution should be exercised in using it in the provision of clinical care. This summary normalizes information from multiple sources, and as a consequence, information in this document may materially change the coding, format and clinical context of patient data. In addition, data may be omitted in some cases. CLINICAL DECISIONS SHOULD BE BASED ON THE PRIMARY CLINICAL RECORDS. [facility]. provides no warranty or guarantee of the accuracy or completeness of information in this document.
--- OUTSIDE RECORDS SUMMARY | 2025-05-06 08:15 | XMS RPT_ITS | CCD ---
Author Organization [facility] Care Team Providers Care Speaker Wirer Name Role Phone Ivania SHEN, Morgan Carpio Unavailable David RN, Amirah Thomas Unavailable [phone] David RN, Amirah Thomas Unavailable [phone] David RN, Amirah Thomas Unavailable [phone] EUGENIE INSTRUCTOR PAINTING - BOO, ANG Mercedes Primary Care Phys [...] Unavailable BREANNA JONES Attending Unava ilable ROCK INSTRUCTOR PAINTING-ANTHROPOLOGY AND ARCHEOLOGY INSTRUCTOR, AUTUMN Attending Unavailabl e EUGENIE SHANKAR - ANG HADDAD Primary Care U MIS Almodovar MD Attending Unavailable EUGENIE INSTRUCTOR PAINTING - ANTHROPOLOGY AND ARCHEOLOGY INSTRUCTORANG Primary Care U MIS Almodovar MD Attending Unavailable EUGENIEELENA SHANKAR - ANG HADDAD Primary Care U shanna Traore MEASURING MACHINE TENDER-CAng Primary Care Provi roscoe Eugenie SHARPE-CAng Referring Provider Abdiaziz Chou Attending Provider [place] MEASURING MACHINE TENDER-CVelvet Attending Provider Ang Traore NP Primary Care Unav ailable Velvet Mathew Attending Unavailable [place] MEASURING MACHINE TENDER, Ang Stover Referring Unav ailable Eugenie MEASURING MACHINE TENDER, Ang Stover Primary Care Unav ailable Abdiaziz Chou Attending Unavailable Eugenie MEASURING MACHINE TENDER, Ang Stover Referring Unav ailable Eugenie MEASURING MACHINE TENDER, Ang Stover Attending Unav ailable Eugenie MEASURING MACHINE TENDER, Ang Stover Primary Care Unav ailable Eugenie MEASURING MACHINE TENDER, Ang Stover Referring Unav ailable Allergies Allergy Classification Reported Allergen(s) Allergy Type Date of Onset Reaction(s) Facility (9 sources) penicillin; Translations: [penicillin] drug allergy 7 Stomach ache (finding) [email or web address] Work Phone: (10 sources) Penicillins; Translations: [PENICILLINS] Propensity to adverse reactions 9 [facility] Repository (4 sources) Shellfish; Translations: [SHELLFISH] Propensity to adverse reactions to food (disorder) 9 [facility] Repository Medications Current Medications Medication Drug Class(es) [...] mouth once daily TOPROL XL 25 MG [id number] One tablet by mouth daily METOPROLOL SUCCINATE [id number] Morgan Redd MD Start: 07-16-2017 End: 07-23-2017 take 1 tablet by mouth once daily TOPROL XL 25 MG [id number] One tablet by mouth daily METOPROLOL SUCCINATE [id number] Morgan Redd MD Start: 07-16-2017 take 1 tablet by francesca th once daily TOPROL XL 25 MG [id number] One tablet by mouth daily METOPROLOL SUCCINATE [id number] Amirah Hernandez RN pantoprazole 40 mg delayed release oral tablet (1 source) Proton Pump Inhibitor Start: 07-31-2023 pantoprazole 40 mg oral enteric coated tablet Dose : 40 mg = 1 tab(s), Oral, qDay, # 30 tab(s), 0 Refill(s), [facility]acy: [facility] #[id number], 170.3, cm, 07/31/23 10:27:00 EDT, Height, kg, [...] four times daily as needed PROMETHAZINE HCL [id number] Morgan Redd MD levothyroxine sodium 0.125 mg oral tablet (20 sources) l-Thyroxine Start: 05-26-2023 End: 11-22-2023 levothyroxine 125 mcg (0.125 mg) oral tablet Dose : 125 mcg = 1 tab(s), Oral, qDay, # 30 tab(s), 5 Refill(s), Pharmacy: [facility] #[id number], 167, cm, 05/26/23 7:24:00 EDT, Height, kg, 05/26/23 7:24:00 EDT, Dosing Weight Start Date: 05/26/23 Stop Date: 11/22/23 Status: Ordered Start: 11-25-2022 End: 05-24-2023 levothyroxine 125 mcg (0.125 mg) oral tablet Dose : 125 mcg = 1 tab(s), Oral, qDay, # 30 tab(s), 5 Refill(s), Pharmacy: [facility] #[id number], 167.3, cm, 11/25/22 14:51:00 EST, Height, kg, 11/25/22 14:51:00 EST, Dosing Weight Start Date: 11/25/22 Stop Date: 05/24/23 Status: Ordered Start: 05-27-2021 End: 02-21-2022 levothyroxine 125 mcg (0.125 mg) oral tablet Dose : 125 mcg = 1 tab(s), Oral, qDay, # 90 tab(s), 2 Refill(s), [facility]: [id number], Hypothyroidism, 170, cm, 05/27/21 15:43:00 EDT, Height, [...] One tablet by mouth daily LEVOTHYROXINE SODIUM [id number] Amirah Hernandez RN Comment on above: Take 125 mcg by mout h once daily. vancomycin 125 mg oral capsule (1 source) Glycopeptide Antibacterial Start: 05-07-2023 End: 05-17-2023 vancomycin 125 mg oral capsule Dose : 125 mg = 1 cap(s), Oral, q6h, X 10 day(s), # 40 cap(s), 0 Refill(s), 05/17/23 15:10:00 EDT, [id number], 167.3, cm, 05/07/23 8:05:00 EDT, Height, 79.9 Start Date: 05/07/23 Stop Date: 05/17/23 Status: Ordered Completed/Discontinued Medications Medication Drug Class(es) Dates Sig (Normalized) Sig (Original) acetaminophen 250 mg / aspirin 250 mg / caffeine 65 mg oral tablet (6 sources) Nonsteroidal Anti-inflammatory Drug, Central Nervous System Stimulant, Methylxanthine Start: 07-16-2017 EXCEDRIN EXTRA STRENGTH 250-250-65 MG TABS As needed ASPIRIN-ACETAMINO PHEN-CAFFEINE [id number] Amirah Hernandez RN Start: 07-16-2017 EXCEDRIN EXTRA STRENGTH 250-250-65 MG TABS As needed [id number] Amirah Hernandez RN acetaminophen 325 mg / [...] TBEC One tablet by mouth daily ASPIRIN [id number] Morgan Redd MD Brompheniramine -Pseudoeph-Dm (Bromfed Dm) [...] every four to six hours as needed Qsxupndzzgsqukq-Navqohyyy-Cs (Bromfed Dm ) 2-30-10 mg/5 mL syrup [...] three times daily as needed CYCLOBENZAPRINE HCL [id number] Amirah Hernandez RN dicyclomine hydrochloride 10 mg oral capsule (1 source) Anticholinergic Start: 07-31-2023 End: 08-07-2023 dicyclomine 10 mg oral capsule Dose : 10 mg = 1 cap(s), Oral, QID, # 28 cap(s), 0 Refill(s), [id number], 170.3, cm, 07/31/23 10:27:00 EDT, Height, kg, [...] 2025 8:36am PO PER PKG DIR nystatin [id number] unt/ml topical cream (5 sources) Polyene Antifungal [...] q6h, # 40 tab(s), 2 Refill(s), Pharmacy: [facility] #[id number], 170.3, cm, 07/31/23 10:27:00 EDT, Height, kg, [...] One tablet by mouth daily VERAPAMIL HCL [id number] Morgan Redd MD Vitamin D3 25 mcg [...] Reporton 0 04-01-2025 Urgent Care Visit Report [facility] [address], [address] [place] [address] OFFICE VISIT Date of Service: 04/01/25 MR#: [id number] Acct: [id number] Name: LAURA RUVALCABA Rep #: [id number] : 1980 Provider: YANET Mathew Age/Sex: 44/F Location[place] [facility] Status: Signed Intake Vital Signs 03/21/25 17:13 04/01/25 08:29 Height 5 ft 7 in BP 102/60 Blood Pressure Location Rt brachial Position Sitting Respiration 15 Pulse 68 Pulse Source NIBP Temp 98.1 F Temp Source Oral Pulse Oximetry (%) 96 Oxygen Delivery Method room air Intake Visit Reasons: CONCERN FOR THRUSH Chief Complaint: cough, thrush Customer Sales Service Manager Required: No Is patient in pain?: Yes [...] using a friends inhaler. concern for thrush. [facility] Medical History (Updated 04/01/25 @ 11:40 by [...] x3 Cog (more content not included)... Normal [facility] Visit Reporton 0 03-22-2025 Urgent Care Visit Report [facility] [address], [address] [place] [address] OFFICE VISIT Date of Service: 03/22/25 MR#: [id number] Acct: [id number] Name: LAURA RUVALCABA Rep #: [id number] : 1980 Provider: SULEIMAN Bauman Age/Sex: 44/F Location: [facility] Status: Signed Intake Vital Signs 02/11/23 04:15 03/21/25 17:13 03/22/25 17:18 Height 5 ft 7 in 5 ft 7 in BP 128/72 H Blood Pressure Location Lt brachial Position Sitting Respiration 15 Pulse 89 Pulse Source NIBP Temp 99.0 F Temp Source Oral Pulse Oximetry (%) 95 Oxygen Delivery Method room air Intake Visit Reasons: Cough Chief Complaint: COUGH Customer Sales Service Manager Required: No Is patient in pain?: No [...] chest pressure/shortness of breath/dyspnea on exertion/wheeze. No qlmi-srt-wusvzfh medications have been taken to assist. Non- [...] the above. This note was generated with aihuishou dictation software. It may contain incorrect words, spelling, and punctuation that were not noted in checking the note before signing. Medications: New met (more content not included)... Normal [facility] T4 Free Directon 05-06-2024 T4 FREE DIRECT 1.05 ng/dL Normal 0.76-1.46 [facility] Comment on above: Performed By: #### L 501.9520, L506.0400 #### [facility] [address] [place], [address] Thyroid Stim Hormone (TSH)on 05-06-2024 TSH 3.97 uIU/mL High 0.358-3.74 [facility] Comment on above: Performed By: #### L 501.9520, L506.0400 #### [facility] [address] [place], [address] NM HEPATOBILIARY DUCT SYSTEM IMAGINGon 09-03-2023 NM [...] 09/03/2023 10:27:36 AM Ordering Provider: MIS Gao [facility] ([place]) .Auto Diffon 07-03-2023 Basophil, Absolute 0.0 10 3/mcL Normal 0.0-0.2 [facility] ([place]) Comment on above: Performed By: #### C BC, GFR, ANEU, ADIFF, CMP #### [address] [address] Basophils/100 WBC (Bld) 0.8 % Normal 0.0-2.5 [facility] ([place] Comment on above: Performed By: #### C BC, GFR, ANEU, ADIFF, CMP #### [address] [address] Eosinophil, Absolute 0.0 10 3/mcL Normal 0.0-0.4 [facility] ([place] Comment on above: Performed By: #### C BC, GFR, ANEU, ADIFF, CMP #### [address] [address] Eosinophils/100 WBC (Bld) 0.9 % Normal 0.0-7.0 [facility] ([place] Comment on above: Performed By: #### C BC, GFR, ANEU, ADIFF, CMP #### [address] [address] Lymphocyte, Absolute 1.9 10 3/mcL Normal 0.8-3.9 [facility] ([place] Comment on above: Performed By: #### C BC, GFR, ANEU, ADIFF, CMP #### [address] [address] Lymphocytes/100 WBC (Bld) 37.5 % Normal 10.0-50.0 [facility] ([place] Comment on above: Performed By: #### C BC, GFR, ANEU, ADIFF, CMP #### [address] [address] Monocyte, Absolute 0.4 10 3/mcL Normal 0.2-1.0 [facility] ([place] Comment on above: Performed By: #### C BC, GFR, ANEU, ADIFF, CMP #### [address] [address] Monocytes/100 WBC (Bld) 8.1 % Normal 1.7-13.0 [facility] ([place] Comment on above: Performed By: #### C BC, GFR, ANEU, ADIFF, CMP #### [address] [address] Neutrophils/100 WBC (Bld) 52.7 % Normal 37.0-80.0 [facility] ([place] Comment on above: Performed By: #### C BC, GFR, ANEU, ADIFF, CMP #### [address] [address] .GFRon 07-03-2023 GFR Non- 96 ml/min/1.73sqm Normal [facility] ([place] Comment on above: Result Comment: GFR Population [...] C BC, GFR, ANEU, ADIFF, CMP #### [place] [address] GFR 116 ml/min/1.73sqm Normal [facility] ([place] Comment on above: Result Comment: GFR Population [...] C BC, GFR, ANEU, ADIFF, CMP #### [place] [address] .NEUABSon 07-03-2023 Neutrophil, Absolute 2.7 10 3/mcL Low 2.9-6.2 [facility] ([place] Comment on above: Performed By: #### C BC, GFR, ANEU, ADIFF, CMP #### [place] [address] CBCon 07-03-2023 Erythrocyte distribution width (RBC) [Ratio] 13.9 % Normal 11.5-14.5 [facility] ([place] Comment on above: Performed By: #### C BC, GFR, ANEU, ADIFF, CMP #### [place] [address] Hematocrit (Bld) [Volume fraction] 37.4 % Normal 37.0-47.0 [facility] ([place] Comment on above: Performed By: #### C BC, GFR, ANEU, ADIFF, CMP #### [place] [address] Hgb 12.2 G/dL Normal 12.0-16.0 [facility] ([place] Comment on above: Performed By: #### C BC, GFR, ANEU, ADIFF, CMP #### [place] [address] MCH (RBC) [Entitic mass] 27.9 pg Normal 27.0-31.2 [facility] ([place] Comment on above: Performed By: #### C BC, GFR, ANEU, ADIFF, CMP #### [place] [address] MCHC 32.5 G/dL Low 33.0-37.0 [facility] ([place] Comment on above: Performed By: #### C BC, GFR, ANEU, ADIFF, CMP #### [place] [address] MCV (RBC) [Entitic vol] 85.7 fL Normal 80.0-94.0 [facility] ([place] Comment on above: Performed By: #### C BC, GFR, ANEU, ADIFF, CMP #### [place] [address] Platelet 316 10 3/mcL Normal 130-400 [facility] ([place] Comment on above: Performed By: #### C BC, GFR, ANEU, ADIFF, CMP #### [place] [address] Platelet mean volume (Bld) [Entitic vol] 9.1 fL Normal 7.4-10.4 [facility] ([place] Comment on above: Performed By: #### C BC, GFR, ANEU, ADIFF, CMP #### [place] [address] RBC 4.36 10 6/mcL Normal 4.20-5.40 [facility] ([place] Comment on above: Performed By: #### C BC, GFR, ANEU, ADIFF, CMP #### [place] [address] WBC 5.1 10 3/mcL Normal 4.6-10.8 [facility] ([place] Comment on above: Performed By: #### C BC, GFR, ANEU, ADIFF, CMP #### [place] [address] CMPon 07-03-2023 Albumin Level 4.0 G/dL Normal 3.5-5.0 [facility] ([place] Comment on above: Performed By: #### C BC, GFR, ANEU, ADIFF, CMP #### [place] [id number] Albumin/Globulin [Mass ratio] 1.3 {ratio} Normal 1.1-2.5 [facility] ([place] Comment on above: Performed By: #### C BC, GFR, ANEU, ADIFF, CMP #### [place] [id number] ALP [Catalytic activity/Vol] 71 U/L Normal 40-135 [facility] ([place] Comment on above: Performed By: #### C BC, GFR, ANEU, ADIFF, CMP #### [place] [id number] ALT [Catalytic activity/Vol] 22 U/L Normal 14-59 [facility] ([place] Comment on above: Performed By: #### C BC, GFR, ANEU, ADIFF, CMP #### [place] [id number] AST [Catalytic activity/Vol] 12 U/L Normal 10-40 [facility] ([place] Comment on above: Performed By: #### C BC, GFR, ANEU, ADIFF, CMP #### [place] [id number] Bili Total 0.4 mg/dL Normal 0.2-1.0 [facility] ([place] Comment on above: Result Comment: Use of this assay is not recommended for patients undergoing treatment with eltrombopag due to the potential for falsely elevated results. Performed By: #### C BC, GFR, ANEU, ADIFF, CMP #### [place] [id number] BUN/Creatinine Ratio 15 ratio Normal 7-27 [facility] ([place] Comment on above: Performed By: #### C BC, GFR, ANEU, ADIFF, CMP #### [place] [id number] Calcium [Mass/Vol] 9.7 mg/dL Normal 8.4-10.2 [facility] ([place] Comment on above: Performed By: #### C BC, GFR, ANEU, ADIFF, CMP #### [address] [address] Chloride [Moles/Vol] 107 mmol/L Normal 98-107 [facility] ([place] Comment on above: Performed By: #### C BC, GFR, ANEU, ADIFF, CMP #### [address] [address] CO2 [Moles/Vol] 31 mmol/L High 22-29 [facility] ([place] Comment on above: Performed By: #### C BC, GFR, ANEU, ADIFF, CMP #### [address] [address] Creatinine [Mass/Vol] 0.67 mg/dL Normal 0.55-1.02 [facility] ([place]) Comment on above: Performed By: #### C BC, GFR, ANEU, ADIFF, CMP #### [address] [address] Electrolyte Balance 6.0 mEq/L Normal 4.0-15.0 [facility] ([place]) Comment on above: Performed By: #### C BC, GFR, ANEU, ADIFF, CMP #### [address] [address] Globulin 3.0 G/dL Normal [facility] ([place] Comment on above: Performed By: #### C BC, GFR, ANEU, ADIFF, CMP #### [address] [address] Glucose [Mass/Vol] 91 mg/dL Normal 70-105 [facility] ([place] Comment on above: Performed By: #### C BC, GFR, ANEU, ADIFF, CMP #### [address] [address] Potassium [Moles/Vol] 4.4 mmol/L Normal 3.5-5.1 [facility] ([place] Comment on above: Performed By: #### C BC, GFR, ANEU, ADIFF, CMP #### [address] [address] Sodium [Moles/Vol] 144 mmol/L Normal 136-145 [facility] ([place] Comment on above: Performed By: #### C BC, GFR, ILYA, CHANDLER, CMP #### [address] [address] Total Protein 7.0 G/dL Normal 6.4-8.2 [facility] ([place] Comment on above: Performed By: #### C BC, GFR, ANEU, ADASHLEY, CMP #### [address] [address] Urea nitrogen [Mass/Vol] 10 mg/dL Normal 7-18 [facility] ([place] Comment on above: Performed By: #### C BC, GFR, ANEU, ADASHLEY, CMP #### [address] [address] CNOVon 06-12-2023 CNOV Office Visit (DERMMN ) LAURA RUVALCABA ([id number]) 1980 [facility] Date Time Provider Department 06/12/23 8:00 AM [...] No EtOh use: Yes rarely 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 Normal [facility] CDIFFAOon 05-07-2023 Clostridium difficile toxin A/B PCR Negative Normal Negative [facility] ([place] Comment on above: Performed By: #### C DIFFAO #### [facility] [place] [id number] Clostridium difficile toxin A/B PCR Int Normal [facility] ([place] Comment on above: Result Comment: Miah ryan [...] Performed By: #### C DIFFAO #### [facility] [address] [address] LABORATORYOrdered By: Katiana Reed on 05-07-2023 C. 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 Normal [facility] Absolute lymphocyte countOrd ered By: Dr. Sanchez on 02-11-2023 Lymphocytes Auto (Unsp spec) [#/Vol] 1.31 10*3/uL 0.83-4.51 [facility] Basophil percentageOrdered B y: Dr. Sanchez on 02-11-2023 Basophils/100 WBC (Bld) 1.0 % 0-1 [facility] Bilirubin [Mass/Vol] 0.20 mg/dL 0.20-1.00 [facility] Comment on above: For patients on eltr ombopag therapy, use of Dimension [facility]ass TBIL is not recommended. Chloride [Moles/Vol] 111 mmol/L 98-107 [facility] Eosinophils/100 WBC (Bld) 1.7 % 0-5 [facility] Glucose [Mass/Vol] 98 mg/dL 74-106 [facility] Neutrophils (Bld) [#/Vol] 2.4 10*3/uL 2.0-7.7 [facility] Neutrophils/100 WBC (Bld) 57.5 % 47-70 [facility] Potassium [Moles/Vol] 4.3 mmol/L 3.5-5.1 [facility] Comment on above: Moderate Hemolysis, Result may be falsely increased. Protein [Mass/Vol] 6.8 g/dL 6.4-8.2 [facility] Sodium [Moles/Vol] 139 mmol/L 136-145 [facility] WBC (Bld) [#/Vol] 4.2 10*3/uL 4.4-11.0 [facility] Blood erythrocytes count (nu mber/volume)Ordered By: Dr. Sanchez on 02-11-2023 RBC (Bld) [#/Vol] 4.41 10*6/uL 4.2-5.4 [facility] Blood hemoglobin measurement (mass/volume)Ordered By: Dr. Sanchez on 02-11-2023 Hemoglobin (Bld) [Mass/Vol] 12.9 g/dL 12.0-15.0 [facility] Blood lymphocytes/100 leukoc ytesOrdered By: Dr. Sanchez on 02-11-2023 Lymphocytes/100 WBC (Bld) 31.4 % 19-41 [facility] Blood monocytes/100 leukocyt esOrdered By: Dr. Sanchez on 02-11-2023 Monocytes/100 WBC (Bld) 8.2 % 0-10 [facility] Blood platelet mean volumeOr dered By: Dr. Sanchez on 02-11-2023 Platelet mean volume (Bld) [Entitic vol] 10.9 fL 6.2-12.0 [facility] Determination of erythrocyte mean corpuscular volume (MCV)Ordered By: Dr. Sanchez on 02-11-2023 MCV (RBC) [Entitic vol] 93.0 fL 81-99 [facility] Direct bilirubinOrdered By: Dr. Sanchez on 02-11-2023 Bilirubin.direct [Mass/Vol] 0.07 mg/dL 0.00-0.30 [facility] Hematocrit Auto (Bld) [Volum e fraction]Ordered By: Dr. Sanchez on 02-11-2023 Hematocrit (Bld) [Volume fraction] 41.0 % 37-47 [facility] - Chemistry and C hemistry - challengeOrdered By: Dr. Sanchez on 02-11-2023 ALP [Catalytic activity/Vol] 58 U/L 45-117 [facility] ALT [Catalytic activity/Vol] 26 U/L 13-56 [facility] CO2 [Moles/Vol] 27.0 mmol/L 21.0-32.0 [facility] Globulin (S) [Mass/Vol] 3.0 g/dL 2.2-4.2 [facility] Lipase [Catalytic activity/Vol] 43 U/L 13-75 [facility] Comment on above: Please note:LIPASE r evised reference range effective 23. New Lipase methodology. Expected to produce lower values than the previous assay method. NEW Reference Range: 13 - 75 U/L Urea nitrogen/Creatinine [Mass ratio] 20.9 mg/mg 10-20 [facility] - Hematology and Cell countsOrdered By: Dr. Sanchez on 02-11-2023 Erythrocyte distribution width (RBC) [Entitic vol] 45.4 fL 35.1-43.9 [facility] Erythrocyte distribution width (RBC) [Ratio] 13.2 % 11.6-14.6 [facility] Immature granulocytes/100 WBC (Bld) 0.200 % 0.0-0.9 [facility] Comment on above: IG% - Immature Granu locytes (promyelocytes, myelocytes and metamyelocytes) > 1% indicates that a LEFT SHIFT is Present. MCH (RBC) [Entitic mass] 29.3 pg 27.0-32.0 [facility] Nucleated RBC/100 WBC (Bld) [Ratio] 0 % 0-5 [facility] MCHC Auto (RBC) [Mass/Vol]Or dered By: Dr. Sanchez on 02-11-2023 MCHC (RBC) [Mass/Vol] 31.5 g/dL 32-36 [facility] No Panel InformationOrdered By: Dr. Sanchez on 02-11-2023 Troponin I High Sensitivity < 3 pg/mL 3.0-54.0 [facility] Comment on above: Please Note: New Mona t Units and Gender Specific Reference Ranges. For more information see Policy Stat Procedure Vass High Sensitivity Troponin (TNIH) and attachments. Estimated Creatinine Clearance Calc 105.28 ml/min [facility] Estimated GFR (MDRD) Amer 123 mL/min >60 [facility] Comment on above: GFR Calc Estimated GFR (MDRD) Non-Af Amer 102 mL/min >60 [facility] Comment on above: Non- GFR Calc Platelets bldOrdered By: Dr. Sanchez on 02-11-2023 Platelets (Bld) [#/Vol] 302 10*3/uL 150-450 [facility] Serum or plasma albumin brenda urement (mass/volume)Ordered By: Dr. Sanchez on 02-11-2023 Albumin [Mass/Vol] 3.8 g/dL 3.2-5.0 [facility] Serum or plasma calcium brenda urement (mass/volume)Ordered By: Dr. Sanchez on 02-11-2023 Calcium [Mass/Vol] 9.3 mg/dL 8.5-10.1 [facility] Serum or plasma creatinine m easurement (mass/volume)Ordered By: Dr. Sanchez on 02-11-2023 Creatinine [Mass/Vol] 0.67 mg/dL 0.55-1.02 [facility] Comment on above: The validity of the calculated GFR & GFRAA in patients over 70 years has not been determined. Clinical correlation is essential. Serum or plasma urea nitroge n measurement (mass/volume)Ordered By: Dr. Sanchez on 02-11-2023 Urea nitrogen [Mass/Vol] 14 mg/dL 7-18 [facility] Thin prep Papanicolaou smear with manual screeningOrdered By: Dr. Sanchez on 02-11-2023 Thin prep Papanicolaou smear with manual screening 21 U/L 15-37 [facility] Comment on above: Moderate Hemolysis, Result may be falsely increased. Thin prep Papanicolaou smear with manual screening 1 5-15 [facility] ED NOTEon 12-25-2022 ED NOTE HNO ID: [id number] Author: Lucio Rae RN Service: ? Author Type: Registered Nurse Type: ED Notes Filed: 12/25/2022 12:40 PM Note Text: Bed: 45-ED Expected date: Expected time: Means of arrival: Comments: [facility] ED PROV NOTEon 12-25-2022 ED PROV NOTE HNO ID: [id number] Author: Galilea Larose PA-C Service: ? Author Type: Physician Manufacturing Coordinator Type: ED Provider Notes Filed: 12/25/2022 1:04 [...] strength elbow flexion extension wrist flexion extension media center director school strength 5 out of 5. FDP and [...] if needed. GALILEA LAROSE 12/25/22 1304 Normal [facility] Laboratory - Chemistry and C hemistry - challengeOrdered By: Ang Traore on 11-11-2022 Free T4 [Mass/Vol] 1.10 ng/dL 0.76-1.46 [facility] No Panel InformationOrdered By: Ang Traore on 11-11-2022 Thyroid Stimulating Hormone (TSH) 10.60 uIU/mL 0.358-3.74 [facility] Laboratory - Chemistry and C hemistry - challengeon 05-16-2022 Free T4 [Mass/Vol] 0.77 ng/dL 0.76-1.46 [facility] Work Phone: No Panel Informationon 05-16 Thyroid Stimulating Hormone (TSH) 12.50 uIU/mL 0.358-3.74 [facility] Work Phone: Laboratory - Chemistry and C hemistry - challengeon 02-11-2022 Free T4 [Mass/Vol] 0.51 ng/dL 0.76-1.46 [facility] Work Phone: No Panel Informationon 02-11 Free Triiodothyronine (T3) pg/dL 2.8 pg/mL 2.18-3.98 [facility] Work Phone: Thyroid Stimulating Hormone (TSH) 39.40 uIU/mL 0.358-3.74 [facility] Work Phone: Laboratory - Chemistry and C hemistry - challengeon 11-25-2021 Free T4 [Mass/Vol] 0.89 ng/dL 0.76-1.46 [facility] Work Phone: No Panel Informationon 11-25 Thyroid Stimulating Hormone (TSH) 4.72 uIU/mL 0.358-3.74 [facility] Work Phone: EMERGENCY REPORTon 1 EMERGENCY REPORT [facility] EMERGENCY ROOM REPORT NAME ACCOUNT SEX AGE ADMIT DISCHARGE PT MED. RECORD# NUMBER DATE DATE TYPE LAURA RUVALCABA [id number] F [id number] 09/29/21 09/29/21 [id number] ROOM: ER DATE OF : 1980 DICTATING [...] Sam Dunham MD 09/29/21 12:20 JOB #: [id number] Transcribed By: camila 09/30/21 14:06 Electronically signed by: LUDA Dunham M.D. 10/09/21 08:34 Page 2 of 2 LAURA RUVALCABA Emergency Room Report Normal [facility] C-REACTIVE PROTEINon 021 CRP 0.60 mg/dl Normal 0.00 - 0.90 [facility] Comment on above: Performed By: #### 2 [id number] #### [facility],[address] [place] [address] 14033 CBC + DIFFon 09-29-2021 Baso # 0.00 x10EE3/UL Normal 0.00 - 0.10 [facility] Comment on above: Performed By: #### 2 87052 #### [address] [address] Basophils/100 WBC (Bld) 0.6 % Normal 0.0 - 2.0 [facility] Comment on above: Performed By: #### 2 74142 #### [facility],[address] [place] [address] 05614 CBC + DIFF Normal [facility] Comment on above: Result Comment: CBC- COMPLETE BLOOD COUNT Performed By: #### 2 57287 #### [facility],[address] [place] [address] 72928 EO # 0.00 x10EE3/UL Normal 0.00 - 0.50 [facility] Comment on above: Performed By: #### 2 83812 #### [facility],[address] [place] [address] 05814 Eosinophils/100 WBC (Bld) 0.0 % Normal 0.0 - 7.0 [facility] Comment on above: Performed By: #### 2 31234 #### [facility],[address] [place] [address] 81930 Erythrocyte distribution width (RBC) [Ratio] 13.3 % Normal 12.0 - 15.6 [facility] Comment on above: Performed By: #### 2 32862 #### [facility],[address] [place], [place] [address] Hematocrit (Bld) [Volume fraction] 41.3 % Normal 34.0 - 46.0 [facility] Comment on above: Performed By: #### 2 59886 #### [facility],[address] [place] [address] 06604 Hemoglobin (Bld) [Mass/Vol] 13.9 g/dL Normal 12.0 - 16.0 [facility] Comment on above: Performed By: #### 2 37510 #### [facility],[address] [place] [address] 69776 Lymph # 0.90 x10EE3/UL Normal 0.80 - 2.80 [facility] Comment on above: Performed By: #### 2 86284 #### [facility],[address] [place] [address] 32174 Lymphocytes/100 WBC (Bld) 25.5 % Normal 20.0 - 45.0 [facility] Comment on above: Performed By: #### 2 92642 #### [facility],[address] [place] [address] MANUAL DIFF N/A Normal [facility] Comment on above: Performed By: #### 2 34541 #### [facility],[address] [place] [address] MCH (RBC) [Entitic mass] 29 pg Normal 27 - 33 [facility] Comment on above: Performed By: #### 2 66657 #### [facility],[address] [place] [address] MCHC 34 X10 3 Normal 32 - 36 [facility] Comment on above: Performed By: #### 2 47974 #### [facility],[address] [place] [address] MCV (RBC) [Entitic vol] 86 fL Normal 80 - 99 [facility] Comment on above: Performed By: #### 2 61349 #### [facility],[address] [place] [address] [place] # 0.20 x10EE3/UL Normal 0.20 - 1.00 [facility] Comment on above: Performed By: #### 2 66402 #### [facility],[address] [place] [address] MONOS % 7.2 % Normal 0.0 - 10.0 [facility] Comment on above: Performed By: #### 2 10134 #### [facility],[address] [place] [address] Morphology Raymundo (Bld) [Interp] N/A Normal [facility] Comment on above: Result Comment: {CD] Performed By: #### 2 87133 #### [facility],[address] [place] [address] Neut # 2.30 x10EE3/UL Normal 1.50 - 7.10 [facility] Comment on above: Performed By: #### 2 76905 #### [facility],[address] [place] [address] 66009 Neutrophils/100 WBC (Bld) 66.7 % Normal 46.0 - 76.0 [facility] Comment on above: Performed By: #### 2 00237 #### [facility],[address] [place] [address] 92809 PLATELET 140 x10EE3/UL Low 150 - 450 [facility] Comment on above: Performed By: #### 2 63251 #### [facility],[address] [place] [address] 61323 Platelet mean volume (Bld) [Entitic vol] 9.7 fL Normal 6.6 - 10.5 [facility] Comment on above: Result Comment: AUTO MATED DIFFERENTIAL Performed By: #### 2 86734 #### [facility],[address] [place] [address] 38715 RBC 4.82 x 10EE6/UL Normal 4.10 - 5.30 [facility] Comment on above: Performed By: #### 2 44897 #### [facility],[address] [place] [address] 95033 WBC 3.5 x 10EE3/UL Low 4.5 - 10.8 [facility] Comment on above: Performed By: #### 2 93409 #### [facility],[address] [place] [address] 98870 CMP with eGFRon 09-29-2021 AGE 41 years Normal [facility] Comment on above: Performed By: #### 2 03260 #### [facility],[address] [place] [address] 05875 Albumin [Mass/Vol] 4.0 g/dL Normal 3.4 - 5.0 [facility] Comment on above: Performed By: #### 2 72380 #### [facility],[address] [place] [address] 89337 Albumin/Globulin [Mass ratio] 1.1 {ratio} Normal 0.9 - 1.6 [facility] Comment on above: Performed By: #### 2 28313 #### [facility],[address] [place] [address] 95673 ALK PHOS 57 U/L Normal 46 - 116 [facility] Comment on above: Performed By: #### 2 93133 #### [facility],[address] [place] [address] 97672 ALT [Catalytic activity/Vol] 22 U/L Normal 14 - 59 [facility] Comment on above: Performed By: #### 2 92524 #### [facility],[address] [place] [address] 44992 Anion gap [Moles/Vol] 14 mmol/L Normal 10 - 20 [facility] Comment on above: Performed By: #### 2 58675 #### [facility],[address] [place] [address] 83015 AST [Catalytic activity/Vol] 16 U/L Normal 13 - 39 [facility] Comment on above: Performed By: #### 2 03533 #### [facility],[address] [place] [address] 02605 B/C RATIO 15 ratio Normal 0 - 30 [facility] Comment on above: Performed By: #### 2 77031 #### [facility],[address] [place] [address] 88288 Bilirubin [Mass/Vol] 0.3 mg/dL Normal 0.2 - 1.0 [facility] Comment on above: Performed By: #### 2 55024 #### [facility],[address] [place] [address] 42769 Calcium [Mass/Vol] 9.3 mg/dL Normal 8.5 - 10.1 [facility] Comment on above: Performed By: #### 2 47731 #### [facility],[address] [place] [address] 49842 Chloride [Moles/Vol] 102 mmol/L Normal 98 - 107 [facility] Comment on above: Performed By: #### 2 72803 #### [facility],[address] [place] [address] 38168 CMP with eGFR Normal [facility] Comment on above: Result Comment: COMP REHENSIVE METABOLIC PANEL Performed By: #### 2 17027 #### [facility],[address] [place] [address] 82712 CO2 [Moles/Vol] 25.1 mmol/L Normal 21.0 - 32.0 [facility] Comment on above: Performed By: #### 2 30312 #### [facility],[address] [place] [address] 60618 Creatinine [Mass/Vol] 0.86 mg/dL Normal 0.55 - 1.02 [facility] Comment on above: Performed By: #### 2 88941 #### [facility],[address] [place] [address] 07219 GFR/1.73 sq M.predicted among non-blacks MDRD (S/P/Bld) [Vol rate/Area] mL/min/{1.73_m2} Normal 60 - 999 [facility] Comment on above: Performed By: #### 2 09458 #### [facility],[address] [place] [address] 72201 Result Comment: ACCO RDING TO THE NATIONAL KIDNEY DISEASE EDUCATION PROGRAM(NKDE), A NORMAL eGFR IS A VALUE GREATER THAN OR EQUAL TO 60 ML/MIN/1.73 SQ METERS. CHRONIC KIDNEY DISEASE: <60mL/MIN/1.73 SQ METERS KIDNEY FAILURE: <15mL/MIN/1.73 SQ METERS THIS TEST SHOULD ONLY BE USED FOR PATIENTS 18 YEARS OF AGE AND OLDER. Globulin (S) [Mass/Vol] 3.5 g/dL Normal 1.5 - 3.8 [facility] Comment on above: Performed By: #### 2 91878 #### [facility],[address] [place] [address] 70885 Glucose [Mass/Vol] 99 mg/dL Normal 74 - 106 [facility] Comment on above: Performed By: #### 2 64746 #### [facility],[address] [place] [address] Potassium [Moles/Vol] 3.4 mmol/L Low 3.5 - 5.1 [facility] Comment on above: Performed By: #### 2 10865 #### [facility],[address] [place] [address] Protein [Mass/Vol] 7.5 g/dL Normal 6.4 - 8.2 [facility] Comment on above: Performed By: #### 2 80972 #### [facility],[address] [place] [address] Sodium [Moles/Vol] 138 mmol/L Normal 136 - 145 [facility] Comment on above: Performed By: #### 2 10910 #### [facility],[address] [place] [address] Urea nitrogen [Mass/Vol] 13 mg/dL Normal 7 - 18 [facility] Comment on above: Performed By: #### 2 45026 #### [facility],[address] [place], [place] [address] LIPASEon 09-29-2021 Lipase [Catalytic activity/Vol] 181.0 U/L Normal 73.0 - 393 [facility] Comment on above: Performed By: #### 2 62424 #### [facility],[address] [place] [address] 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 Left ventricular Ejection fraction 55 % Invalid Interpretation Code [email or web address] Work Phone: Office Visiton 07-23-2017 Dietary management education, guidance, and counseling (procedure) yes Invalid Interpretation Code [email or web address] Work Phone: Documentation of current medications (procedure) Done Invalid Interpretation Code [email or web address] Work Phone: Fall risk assessment No Invalid Interpretation Code [email or web address] Work Phone: Protein mass conc Done Invalid Interpretation Code [email or web address] Work Phone: [phone] Tobacco smoking status NHIS Never smoker Invalid Interpretation Code [email or web address] Work Phone: [phone] Tobacco use CPHS Never smoker Invalid Interpretation Code [email or web address] Work Phone: [phone] Replaced Document: Monse MEJIAS Observationson 07-23-2017 EKG QRS axis 31 deg Invalid Interpretation Code [email or web address] Work Phone: [phone] electrocardiogram interpretation Sinus Rhythm WITHIN NORMAL LIMITS Invalid Interpretation Code [email or web address] Work Phone: [phone] GE use only - for [employer] import when terms are not otherwise specified 377 ms Invalid Interpretation Code [email or web address] Work Phone: [phone] Interpretation Sinus Rhythm WITHIN NORMAL LIMITS Invalid Interpretation Code [email or web address] Work Phone: [phone] P [place] 66 deg Invalid Interpretation Code [email or web address] Work Phone: [phone] P wave axis, electrocardiogram 66 deg Invalid Interpretation Code [email or web address] Work Phone: [phone] OR Interval 132 ms Invalid Interpretation Code [email or web address] Work Phone: [phone] OR interval, electrocardiogram 132 ms Invalid Interpretation Code [email or web address] Work Phone: [phone] Pulse (Heart Rate) 64 /min Invalid Interpretation Code [email or web address] Work Phone: [phone] QRS axis, electrocardiogram 31 deg Invalid Interpretation Code [email or web address] Work Phone: [phone] QRS Duration 93 ms Invalid Interpretation Code [email or web address] Work Phone: [phone] QRS duration, electrocardiogram 93 ms Invalid Interpretation Code [email or web address] Work Phone: [phone] QT Interval new path ms Invalid Interpretation Code [email or web address] Work Phone: [phone] QT interval, electrocardiogram new path ms Invalid Interpretation Code [email or web address] Work Phone: [phone] QTc [place] 377 ms Invalid Interpretation Code [email or web address] Work Phone: [phone] T [place] 31 deg Invalid Interpretation Code [email or web address] Work Phone: [phone] T wave axis, electrocardiogram 31 deg Invalid Interpretation Code [email or web address] Work Phone: [phone] 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 07-16-2017 Left ventricular Ejection fraction 55-60 Invalid Interpretation Code [email or web address] Work Phone: [phone] Tobacco use CPHS Never smoker Invalid Interpretation Code [email or web address] Work Phone: [phone] Clinical Lists Update: [facility] 06-04-2017 Alanine aminotransferase (ALT) 15 U/L Invalid Interpretation Code [email or web address] Work Phone: [phone] Alkaline phosphatase (ALP) 53 U/L Invalid Interpretation Code [email or web address] Work Phone: [phone] ALP enzyme act/vol (Bld) 53 U/L Invalid Interpretation Code [email or web address] Work Phone: [phone] Aspartate aminotransferase (AST) 15 U/L Invalid Interpretation Code [email or web address] Work Phone: [phone] Bilirubin (total) 0.4 mg/dL Invalid Interpretation Code [email or web address] Work Phone: [phone] Protein 7.3 g/dL Invalid Interpretation Code [email or web address] Work Phone: [phone] Clinical Lists Update: [facility]11-06-2016 Cholesterol 158 mg/dL Invalid Interpretation Code [email or web address] Work Phone: [phone] HDL Cholesterol 58 mg/dL Invalid Interpretation Code [email or web address] Work Phone: [phone] LDL Cholesterol 87 mg/dL Invalid Interpretation Code [email or web address] Work Phone: [phone] Thyroid stimulating hormone (TSH) 6.68 u[iU]/mL Invalid Interpretation Code [email or web address] Work Phone: [phone] Triglyceride 64 mg/dL Invalid Interpretation Code [email or web address] Work Phone: [phone] Vital Signs Date Time Vital Sign Value Performing Clinician Facility 04-01-2025 08:29-0400 Body temperature 98.1 [degF] Ang Traore MEASURING MACHINE TENDER-C Work Phone: [facility] 04-01-2025 08:29-0400 Diastolic blood pressure 60 mm[Hg] Ang Traore MEASURING MACHINE TENDER-C Work Phone: [facility] 04-01-2025 08:29-0400 Heart rate 68 /min Ang Tarore MEASURING MACHINE TENDER-C Work Phone: [facility] 04-01-2025 08:29-0400 Respiratory rate 15 /min Ang Traore MEASURING MACHINE TENDER-C Work Phone: [facility] 04-01-2025 08:29-0400 SaO2% (BldA) [Mass fraction] 96 % Ang Eugenie MEASURING MACHINE TENDER-C Work Phone: [facility] 04-01-2025 08:29-0400 Systolic blood pressure 102 mm[Hg] Ang Traore MEASURING MACHINE TENDER-C Work Phone: [facility] 03-22-2025 17:18-0400 Body temperature 99 [degF] Ang Traore MEASURING MACHINE TENDER-C Work Phone: [facility] 03-22-2025 17:18-0400 Diastolic blood pressure 72 mm[Hg] Ang Traore MEASURING MACHINE TENDER-C Work Phone: [facility] 03-22-2025 17:18-0400 Heart rate 89 /min Ang Traore MEASURING MACHINE TENDER-C Work Phone: [facility] 03-22-2025 17:18-0400 Respiratory rate 15 /min Ang Traore MEASURING MACHINE TENDER-C Work Phone: [facility] 03-22-2025 17:18-0400 SaO2% (BldA) [Mass fraction] 95 % Ang Traore MEASURING MACHINE TENDER-C Work Phone: [facility] 03-22-2025 17:18-0400 Systolic blood pressure 128 mm[Hg] Ang Traore MEASURING MACHINE TENDER-C Work Phone: [facility] 03-21-2025 17:13-0400 Body height 170.18 cm Ang Traore MEASURING MACHINE TENDER-C Work Phone: [facility] 02-11-2023 07:26-0400 Diastolic blood pressure 74 mm[Hg] [facility] 02-11-2023 07:26-0400 Heart rate 69 /min [facility] 02-11-2023 07:26-0400 Respiratory rate 15 /min [facility] 02-11-2023 07:26-0400 SaO2% (BldA) [Mass fraction] 98 % [facility] 02-11-2023 07:26-0400 Systolic blood pressure 135 mm[Hg] [facility] 02-11-2023 04:15-0400 Body height 170.18 cm [facility] 02-11-2023 04:15-0400 Body mass index (BMI) [Ratio] 27.6 kg/m2 [facility] 02-11-2023 04:15-0400 Body temperature 97.7 [degF] [facility] 02-11-2023 04:15-0400 Body weight 80 kg [facility] 09-27-2021 09:03-0500 Diastolic blood pressure 69 mm[Hg] DAVID MEDINA MD [facility] 09-27-2021 09:03-0500 Heart rate 98 /min ADVID MEDINA MD [facility] 09-27-2021 09:03-0500 Respiratory rate 16 /min DAVID MEDINA MD [facility] 09-27-2021 09:03-0500 Systolic blood pressure 109 mm[Hg] DAVID MEDINA MD [facility] 09-27-2021 08:19-0500 Diastolic blood pressure 78 mm[Hg] DAVID MEDINA MD [facility] 09-27-2021 08:19-0500 Heart rate 101 /min DAVID MEDINA MD [facility] 09-27-2021 08:19-0500 Respiratory rate 16 /min DAVID MEDINA MD [facility] 09-27-2021 08:19-0500 Systolic blood pressure 110 mm[Hg] DAVID MEDINA MD [facility] 09-27-2021 07:57-0500 Diastolic blood pressure 80 mm[Hg] DAVID MEDINA MD [facility] 09-27-2021 07:57-0500 Heart rate 103 /min DAVID MEDINA MD [facility] 09-27-2021 07:57-0500 Respiratory rate 16 /min DAVID MEDINA MD [facility] 09-27-2021 07:57-0500 Systolic blood pressure 112 mm[Hg] DAVID MEDINA MD [facility] 09-27-2021 07:48-0500 Body height 170 cm DAVID MEDINA MD [facility] 09-27-2021 07:48-0500 Body temperature 98.78 [degF] DAVID MEDINA MD [facility] 09-27-2021 07:48-0500 Body weight 77 kg DAVID MEDINA MD [facility] 07-23-2017 15:06-0400 Heart rate 64 /min Amirah Hernandez RN [facility] Work Phone: 07-23-2017 14:50-0400 BMI (Body Mass Index) 27.88 kg/m2 Morgan Redd MD [facility] Work Phone: 07-23-2017 14:50-0400 BP Diastolic 70 mm[Hg] Morgan Redd MD [facility] Work Phone: 07-23-2017 14:50-0400 BP Systolic 102 mm[Hg] Morgan Redd MD [facility] Work Phone: 07-23-2017 14:50-0400 Height 170.18 cm Morgan Redd MD [facility] Work Phone: 07-23-2017 14:50-0400 Pulse (Heart Rate) 72 /min Morgan Redd MD [facility] Work Phone: 07-23-2017 14:50-0400 Respiratory Rate 16 /min Morgan Redd MD [facility] Work Phone: 07-23-2017 14:50-0400 Weight 80.74 kg Morgan Redd MD [facility] Work Phone: Encounters Encounter Date Encounter Type Care Provider Facility Start: 04-01-2025 End: 04-01-2025 Patient encounter procedure Velvet Mathew MEASURING MACHINE TENDER-C [facility] Work Phone: Start: 04-01-2025 End: 04-01-2025 ambulatory Ang Traore MEASURING MACHINE TENDER-C Work Phone: [facility] Work Phone: Start: 03-22-2025 End: 03-22-2025 Patient encounter procedure Abdiaziz Vasquez PA -[facility] Work Phone: Start: 03-22-2025 End: 03-22-2025 ambulatory Ang Traore MEASURING MACHINE TENDER-C Work Phone: [facility] Work Phone: Start: 05-06-2024 End: 05-06-2024 ambulatory Ang Traore MEASURING MACHINE TENDER Facility:[facility] Start: 09-03-2023 End: 09-04-2023 ambulatory MIS MANTILLA MD Facility:[facility] Start: 09-03-2023 End: 09-03-2023 Patient encounter procedure MIS MANTILLA MD [facility] Start: 07-03-2023 End: 07-04-2023 ambulatory MIS MANTILLA MD Facility:[facility] Start: 06-12-2023 End: 06-13-2023 ambulatory ANG TRAORE Facility:[facility] Start: 06-12-2023 End: 06-12-2023 Patient encounter procedure Breanna Jones MD Work Phone: Dermatology Comment on above: Skin exam, screening for cancer (Primary Dx); Lentigines; Multiple benign nevi; Seborrheic keratosis; Graf angioma; Actinic keratosis; Intertrigo Start: 05-07-2023 End: 05-12-2023 [facility]-ANTHROPOLOGY AND ARCHEOLOGY INSTRUCTOR Facility:[facility] Start: 05-07-2023 End: 05-11-2023 Outreach Lab [facility] INSTRUCTOR PAINTING-ANTHROPOLOGY AND ARCHEOLOGY INSTRUCTOR [facility] Start: 03-06-2023 End: 03-07-2023 ambulatory ANG TRAORE Facility:[facility] Start: 03-06-2023 End: 03-06-2023 Patient encounter procedure Breanna Jones MD Work Phone: Dermatology Comment on above: Skin lesion (Primary Dx) Start: 02-11-2023 End: 02-11-2023 Emergency department patient visit [facility] Start: 12-25-2022 End: 12-25-2022 Emergency department patient visit ERNESTINA LETY Facility:[id number] Start: 11-11-2022 End: 11-11-2022 Patient encounter procedure [facility] Start: 05-16-2022 End: 05-16-2022 Patient encounter procedure [facility] Start: 02-11-2022 End: 02-11-2022 Patient encounter procedure [facility] Start: 11-25-2021 End: 11-25-2021 Patient encounter procedure [facility] Start: 09-29-2021 End: 09-29-2021 Emergency department patient visit ANG TRAORE [facility] Start: 09-27-2021 End: 09-27-2021 Emergency department patient visit DAVID MEDINA MD [facility] Procedures Date Procedure Procedure Detail Performing Clinician [...] Author Start: 08-14-2026 HPV TESTING HPV TESTING [facility] Start: 08-14-2026 PAP TESTING PAP TESTING [facility] Start: 07-03-2023 Influenza vaccination INFLUENZA (#1) [facility] Start: 02-11-2023 [facility] Start: 11-02-2022 DEPRESSION ASSESSMENT DEPRESSION ASSESSMENT [facility] Start: 12-14-2021 COVID-19 VACCINE (3 - Booster for Pfizer series) COVID-19 VACCINE (3 - Booster for Pfizer series) [facility] Start: 12-14-2021 COVID-19 VACCINE (3 - Pfizer series) COVID-19 VACCINE (3 - Pfizer series) [facility] Start: 2019 Mammography MAMMOGRAM [facility] Start: 07-28-2018 End: 07-28-2018 Appointment Appointment [facility] Work Phone: Start: 07-23-2017 End: [...] Phone: Start: 07-23-2017 End: 07-23-2017 PFM PFM [facility] Work Phone: Start: 07-23-2017 End: 07-23-2017 Echocardiography Echocardiogram (complete) [facility] Work Phone: Start: 07-23-2017 End: 07-23-2017 Follow Up Appt 1 year Follow Up Appt 1 year [facility] Work Phone: Start: 07-23-2017 End: 07-23-2017 Follow Up Appt Other Follow Up Appt Other [facility] Work Phone: Start: 07-23-2017 End: 07-23-2017 PFM PFM [facility] Work Phone: Start: 1998 Urine microalbumin profile DTAP,TDAP,TD (1 - Tdap) [facility] Start: 1997 HEPATITIS C SCREENING HEPATITIS C SCREENING [facility] Start: 1997 HIV SCREENING HIV SCREENING [facility] Start: 1979 HEPATITIS B (1 of 3 - 3-dose series) HEPATITIS B (1 of 3 - 3-dose series) [facility] Patient Education ED Chest Pain, Noncardiac [facility] Work Phone: Patient referral [facility] Work Phone: [facility] Immunizations Immunization Date Immunization Notes Care Provider Andrew toney 07-31-2023 influenza, injectabl e, quadrivalent, contains preservative; Translations: [Fluarix PF Quadrivalent ] MIS MANTILLA MD [facility] 08-01-2022 influenza, injectabl e, quadrivalent, preservative free Ang Eugenie MEASURING MACHINE TENDER-C Work Phone: [facility] 08-01-2022 influenza, seasonal, injectable [facility] 07-30-2021 influenza, injectabl e, quadrivalent, preservative free Ang Eugenie MEASURING MACHINE TENDER-C Work Phone: [facility] 07-30-2021 influenza, seasonal, injectable [facility] 09-06-2020 influenza, injectabl e, quadrivalent, preservative free Ang Eugenie MEASURING MACHINE TENDER-C Work Phone: [facility] 09-06-2020 influenza, seasonal, injectable [facility] 07-28-2019 influenza, injectabl e, quadrivalent, preservative free Ang Eugenie MEASURING MACHINE TENDER-C Work Phone: [facility] 07-28-2019 influenza, seasonal, injectable [facility] 07-30-2018 influenza, injectabl e, quadrivalent, preservative free Ang Eugenie MEASURING MACHINE TENDER-C Work Phone: [facility] 07-30-2018 influenza, seasonal, injectable [facility] 05-10-2018 tetanus toxoid, redu hitesh diphtheria toxoid, and acellular pertussis vaccine, adsorbed [facility] 08-17-2017 influenza, injectabl e, quadrivalent, preservative free Ang Musselshell MEASURING MACHINE TENDER-C Work Phone: [facility] 08-17-2017 influenza, seasonal, injectable [facility] 05-19-2017 hepatitis B vaccine, pediatric or pediatric/adolescent dosage [facility] 12-15-2016 hepatitis B vaccine, pediatric or pediatric/adolescent dosage [facility] 11-10-2016 hepatitis B vaccine, pediatric or pediatric/adolescent dosage [facility] 11-10-2016 measles, mumps and rubella virus vaccine [facility] 10-09-2016 influenza, injectabl e, quadrivalent, preservative free Ang Traore MEASURING MACHINE TENDER-C Work Phone: [facility] 10-09-2016 influenza, seasonal, injectable [facility] Payers Date Payer Category Payer Self-pay [id number] 2020 Private Health Insurance [id number] 2020 Private Health Insurance WARREN BARILLAS OAP [id number] 2020-Present [phone] [facility] [id number] [place] [address] Open Access [id number] 1979 Unknown [id number] 1979 Unknown [id number] 1979 Unknown [id number] 1979 Unknown [id number] Unknown [id number] Unknown [id number] Unknown [id number] Unknown [id number] Social History Date Type Detail Facility Start: 10-07-2019 Ex-smoker (finding) [facility] Start: 1980 Sex Assigned At Female [facility] Alvin Abreu Start: 10-02-2021 End: 02-11-2023 Tobacco smoking status NHIS Unknown if ever smoked [facility] Start: 10-25-2020 With Family Alesha Barroso [facility] Start: 03-26-2012 End: 03-21-2025 Tobacco smoking status NHIS Never smoked tobacco [facility] Start: 03-26-2012 Tobacco use and exposure Smokeless tobacco non-user [facility] Start: 06-18-2022 Alcohol intake Current drinke r of alcohol (finding) [facility] Start: 1980 Sex Assigned At Not on file [facility] Start: 06-18-2022 End: 03-06-2023 History of Social function [facility] Start: 06-18-2022 End: 03-06-2023 Tobacco use panel [facility] National Score (1-100), lower number is lower risk 80 [facility] NEGATED: Highlighted row [facility] Mental Status Date Assessment Result Facility 02-11-2023 Cognitive function Voice/Name [facility] Work Phone: Clinical Notes 09-27-2021 to 03-22-2025 Note Date & Type Note Facility 03-22-2025 Evaluation note Diagnosis Onset Date Resolution Acute bronchitis, unspecified acute March 22, 2025 5 :14pm [facility] Work Phone: 1(481) 486-482911-02-2023 Note ORIGINAL EXAMINATION: HIDA111/03/2022 9:27 am TECHNIQUE: [...] Sign Date: 09/03/2023 10:27:36 AM Ordering Provider: [facility]08-11-2023 NoteHNO ID: [id number] Author: Breanna Jones MD Service: ? 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 Return (more content not included)...[facility]08-11-2023 Instructions* Patient Instructions* Breanna Jones MD [...] daily x 2 weeks Follow up with [facility] for genital area. - stop applying clobetasol steroid cream to the area as this can cause thinning - Follow up with [facility] for bacterial vaginosis and irritation/fissures GENERAL SUN [...] often helpful.Additional information can be obtained at: [email or web address] 2. In many cases, skin cancer can [...] are healing, please send your provider a Xooms[employer] message or call. 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 Breanna Jones MD documented in [facility] encounter[facility] Evaluation + Plan note Future Scheduled Tests Laboratory* Thyroid Stimulating Hormone 11/26/23 * Free T4 11/26/23 * Lipid Profile 05/25/23 * Vitamin D Level 05/25/23 * Vitamin D Level 11/26/23 * Complete Metabolic Panel 05/25/23 [facility] 05-05-2023 NoteHNO ID: [id number] Author: Breanna Jones MD Service: ? 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 Breanna Jones, [facility]05-05-2023 Instructions* Patient Instructions* Breanna Jones MD [...] up: 3 months for follow up and [facility] for monitoring - Left cheek -We [...] of any concerning changes. 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 Breanna Jones MD documented in this encounterOhio[facility]21 Hospital Discharge instructions Patient Education 09/27/2021 08:49:34 COVID-19 Prevent the Spread of COVID-19 If You Are Sick (03/20/2020)(CUSTOM) Prevent the Spread of COVID-19 If You Are Sick Accessible version: https://www.cdc.gov/coronavirus/2019-ncov/ah-vez-nqo-sick/ofqab-jtha-jtft.html If you are sick with COVID-19 or [...] Animals if you have questions about pets: https://www.cdc.gov/coronavirus/2019ncov/faq.html#DQQTA22tuvppkr Monitor your symptoms. Common symptoms of COVID-19 [...] and need to call 911, notify the tapering machine operator that you have or think you might [...] clean your hands with an alcohol-based hand bale breaker operator that contains at least 60% alcohol. Clean your hands often. Wash your hands often with soap and water for at least 20 seconds. This is especially important after blowing your nose, coughing, or sneezing; going to the bathroom; and before eating or preparing food. Use hand bale breaker operator if soap and water are not available. Use an alcohol-based hand bale breaker operator with atleast 60% alcohol, covering all surfaces [...] and water or put them in the cushion spring assembler. Clean all high-touch surfaces everyday. Clean and [...] or body fluids on them. Use household spinning frame cleaner and disinfectants. Clean the area or item [...] others for 7 days and completely better. [facility] Evaluation + Plan note Future Appointments Appointment Date:10/01/2021 10:00:00 AM Scheduled Provider:ANG TRAORE APRN, CNP Location:[facility] Appointment Type:PC OV Appointment Date:12/02/2021 04:00:00 PM Scheduled Provider:ANG TRAORE APRN, CNP Location:[facility] Appointment Type: OV Follow Up Future Scheduled Tests Laboratory* Vitamin D Level 11/27/21 [facility] Evaluation + Plan note Future Appointments Appointment Date:05/26/2023 07:20:00 AM Scheduled Provider:ANG TRAORE APRN, CNP Location:[facility] Appointment Type: OV Follow Up Future Scheduled Tests Laboratory* Lipid Profile 05/25/23 * Vitamin D Level 05/25/23 * Complete Metabolic Panel 05/25/23 [facility] evaluzsvif noteNo assessment information available [facility] Work Phone: Evaluation note* Diagnosis Skin lesion- Primary Unspecified disorder of skin and subcutaneous tissue documented [facility] this encounter [facility]* Diagnosis Skin exam, screening for cancer- Primary Screening for malignant neoplasm of the skin Lentigines Other dyschromia Multiple benign nevi Benign neoplasm of skin, site unspecified Seborrheic keratosis Other seborrheic keratosis Graf angioma Nevus, non-neoplastic Actinic keratosis Intertrigo Other specified erythematous condition documented [facility] Narrative No data available for this section [facility] Discharge instructions No data available for this section [facility] Progress note No data available for this section [facility] Reason for referral (narrative)No reason for referral information availableRobert [facility] Work Phone: Summary Purpose Family History No Family History Records Found Relationship Condition Age at Onset Recorded Date/T sarmad mother Hypertension Unknown Coronary artery disease Unknown Advance Directives No Advanced Directives Records Found Advance Directive Response Recorded Date/ Time Living Will No October 02 1:05pm Power of Staff Design Engineer No October 02, 2021 1:05pm Advance Directive Response Recorded Date/ Time Living Will No February 11, 2023 4:17am Power of Staff Design Engineer No February 11 4:17am Chief Complaint and [...] content) DATE CREATED AUTHOR 10/10/2021 Wilbert Rowan [facility] DATE CREATED AUTHOR AUTHOR'S ORGANIZ ATION 12/26/2022 [facility] DATE CREATED AUTHOR AUTHOR'S ORGANIZ ATION 07/13/2023 [facility] DATE CREATED AUTHOR AUTHOR'S ORGANIZ ATION 09/04/2023 [facility] ([place]) DATE CREATED AUTHOR AUTHOR'S ORGANIZ ATION 04/02/2025 [facility] Goals (unrecognized section and content) Goals may be documented in a n alternate section Care Teams (unrecognized sec tion and content) Team Status: Active Member Role Status Dates Dr. Ang Whyte MD Family Provider Active Ang Traore MEASURING MACHINE TENDER, MEASURING MACHINE TENDER-C Primary Care Provider Active Team Status: Inactive Member Role Status Dates Ang Traore MEASURING MACHINE TENDER, MEASURING MACHINE TENDER-C Primary Care Provider, Attending Provider Active Team Status: Inactive Member Role Status Dates Ang Traore MEASURING MACHINE TENDER, MEASURING MACHINE TENDER-C Primary Care Provider Active Dr. Rudi Sanchez DO Emergency Provider Active Speaker Wirer Relationship Specialty Start Date End Date Ang Traore, ANTHROPOLOGY AND ARCHEOLOGY INSTRUCTOR [address] [facility] [place] [address] PCP - General Family Medicine 12/25/22 Speaker Wirer Relationship Specialty Start Date End Date Ang Traore, ANTHROPOLOGY AND ARCHEOLOGY INSTRUCTOR [address] [facility] [place] [address] PCP - General [facility] Medicine 12/25/22 Team Status: Inactive Member Role Status Dates Ang Traore MEASURING MACHINE TENDER, MEASURING MACHINE TENDER-C Primary Care Provider Active Start: March 22, 2025 End: March 22, 2025 Ang Traore MEASURING MACHINE TENDER, MEASURING MACHINE TENDER-C Referring Provider Ac tive Start: March 22, 2025 End: March 22, 2025 Abdiaziz BEARDEN, [place] Attending Provider Active Start: March 22, 2025 End: March 22, 2025 Team Status: Inactive Member Role Status Dates Ang Traore MEASURING MACHINE TENDER, MEASURING MACHINE TENDER-C Primary Care Provider Active Start: April 01, 2025 End: April 01, 2025 Ang Traore NP, MEASURING MACHINE TENDER-C Referring Provider Ac tive Start: April 01, [...] or prosecute any alcohol or drug abuse patient.[facility] HospitalIn the event this information is protected by the Federal Confidentiality of Alcohol and Drug Abuse Patient Records regulations: The Federal rules restrict any use of the information to criminally investigate or prosecute any alcohol or drug abuse patient.[facility] Reason for Visit (unrecogniz ed section [...] BE BASED ON THE PRIMARY CLINICAL RECORDS. [facility] [employer] [facility]. provides no warranty or guarantee of the accuracy or completeness of information in this document.
== END | disposition home or self-care (01) ==
LOC: LAB 08:13
PROVIDERS: PCP Nurse Practitioner Family; Referring Provider Nurse Practitioner Family; Visit Provider Nurse Practitioner Family
DX: E03.9 Hypothyroidism, unspecified (principal)
CPT/HCPCS: 36415; 84439; 84443